=== PATIENT | female | born 1985 | race Caucasian/White ===

== ENCOUNTER 2023-11-24 16:14 | Outpatient (OUT) | payer BC, SELFPAY ==
[2023-11-24 16:32] LABS: Basophils Absolute Auto 0.1 10^3/uL (0.0-0.1); Basophils Percent Auto 0.5 % (0.2-2.0); Eosinophils Absolute Auto 0.1 10^3/uL (0.0-0.7); Eosinophils Percent Auto 0.8 % (0.9-7.0); Hematocrit 36.4 % (36.0-48.0); Hemoglobin 11.5 g/dL (12.0-16.0); Immature Granulocytes Abs Auto 0.03 10^3/uL (0.00-0.03); Immature Granulocytes Pct Auto 0.3 % (0.0-0.5); Lymphocytes Absolute Auto 2.2 10^3/uL (1.2-3.8); Lymphocytes Percent Auto 22.3 % (20.5-60.0); Mean Corpuscular HGB Conc 31.6 g/dL (29.9-35.2); Mean Corpuscular Hemoglobin 25.8 pg (26.7-34.0); Mean Corpuscular Volume 81.6 fL (81.0-99.0); Mean Platelet Volume 10.3 fL (9.5-13.5); Monocytes Absolute Auto 0.6 10^3/uL (0.3-0.8); Monocytes Percent Auto 5.8 % (1.7-12.0); Neutrophils Absolute Auto 6.8 10^3/uL (1.4-6.5); Neutrophils Percent Auto 70.3 % (43.0-75.0); Platelet Count 346 10^3/uL (150-450); Red Blood Count 4.46 10^6/uL (4.20-5.40); Red Cell Distribution Width 15.7 % (11.0-15.0); White Blood Count 9.7 10^3/uL (4.0-11.0)
[2023-11-24 16:48] LABS: Estimated Average Glucose 114 mg/dL; Glycohemoglobin A1C 5.6 % (4.5-6.2)
[2023-11-24 16:57] LABS: HCG Quantitative 435 mIU/mL; Thyroid Stimulating Hormone 5.311 uIU/mL (0.358-3.740)
[2023-11-24 17:18] LABS: Free T4 0.89 ng/dL (0.76-1.46)
[2023-11-26 12:08] LABS: FSH 2.2 mIU/mL (.); Luteinizing Hormone(LH) 1.9 mIU/mL (.)
[2023-11-28 18:07] LABS: DHEA, Serum 158 ng/dL (31-701)
== END 2023-11-24 16:15 | disposition home or self-care (01) ==
LOC: LAB 16:18
PROVIDERS: PCP Student in an Organized Health Care Education/Training Program; Visit Provider Obstetrics & Gynecology
DX: N92.6 Irregular menstruation, unspecified (principal); E28.2 Polycystic ovarian syndrome
CPT/HCPCS: 36415; 82626; 82627; 83001; 83002; 83036; 84439; 84443; 84702; 85025

== ENCOUNTER 2023-11-28 12:40 | Outpatient (OUT) | payer BC, SELFPAY ==
--- NOTE | 2023-11-28 12:46 | MM_ITS ---
Patient Name: FRANKIE GRIGGS MR#: [id number] : 1985 Exam Date: 11/28/2023 Ordering Doctor: DR Leo Oro . RADIOLOGY REPORT PROCEDURE: MM TOMOSYNTHESIS DIAGNOSTIC BI, 11/28/2023, 11:56 US BREAST BI LIMITED, 11/28/2023, 15:19 COMPARISON: None. INDICATIONS: breast lump on left side at 9 o'clock position N63.25 Calculator Name NCI Breast Cancer Risk Assessment Tool 5 Year Breast Cancer Risk 0.40% Lifetime Breast Cancer Risk 11.20% Personal Breast Cancer No Personal Ovarian Cancer No Treatments None Family Cancers None LOCATION: [facility] BREAST COMPOSITION: There are scattered areas of fibroglandular density. FINDINGS: DIAGNOSTIC CATEGORY 4--SUSPICIOUS FOR MALIGNANCY. FINDING DOES NOT EXHIBIT CLASSIC FINDINGS OF BREAST CANCER: Breasts are moderate in size. Multiple nodules are noted bilaterally many of which are reniform in shape and consistent with intramammary lymph nodes. RIGHT BREAST: No significant suspicious finding. Lobular circumscribed nodule 9 o'clock position of the right mid breast measuring 1.0 by 0.75 cm. Ultrasound demonstrates normal lymph nodes corresponding in size and location to the mammographic findings LEFT BREAST: A triangle marker demarcates a palpable mass. No mammographic abnormality. Ultrasound demonstrates an 8.1 x 4.3 x 7.5 mm oval slightly lobular hypoechogenic nodule. Ultrasound core biopsy is recommended for further evaluation. Additional lymph nodes are observed corresponding to the mammographic abnormality. RECOMMENDATIONS: ULTRASOUND-GUIDED CORE BIOPSY: LEFT BREAST 8.1 mm hypoechogenic nodule PLEASE NOTE: A NORMAL MAMMOGRAM DOES NOT EXCLUDE THE POSSIBILITY OF BREAST CANCER. A CLINICALLY SUSPICIOUS PALPABLE LUMP SHOULD BE BIOPSIED. Dictated by: Jef Goodwin MD on 11/28/2023 at 16:12 Approved by: Jef Goodwin MD on 11/28/2023 at 16:16
--- NOTE | 2023-11-28 12:49 | US_ITS ---
The [address] [address] Patient Name: FRANKIE GRIGGS MRN: [id number] date: 1985 Sex: F Assigned Patient Location: MAMMO Current Patient Location: MAMMO Accession/Order Number: [id number] Exam Date: 11/28/2023 14:00 Report Date: 11/28/2023 14:51 At the request of: ORTIZ MOSES Procedure: US OB transvaginal EXAMINATION: US OB transvaginal HISTORY: irregular periods N92.6, polycystic ovaries E28.2 COMPARISON: No relevant comparison available. FINDINGS: Transvaginal images The uterus is normal in size, contour and echotexture. Identified in the anterior myometrium is a 0.9 x 0.7 x 1.0 cm hypoechogenic lesion possibly a small fibroid. Endometrium measures 8 mm, normal The cervix is closed measuring 4.4 cm. The ovaries are not visualized No intrauterine or ectopic is observed US/US OB transvaginal IMPRESSION: No intrauterine or ectopic identified Electronically authenticated by: JAMISON CAMARENA Date: 11/28/2023 14:51
--- NOTE | 2023-11-28 15:17 | US_ITS ---
Patient Name: FRANKIE GRIGGS MR#: [id number] : 1985 Exam Date: 11/28/2023 Ordering Doctor: DR Leo Oro . RADIOLOGY REPORT PROCEDURE: MM TOMOSYNTHESIS DIAGNOSTIC BI, 11/28/2023, 11:56 US BREAST BI LIMITED, 11/28/2023, 15:19 COMPARISON: None. INDICATIONS: breast lump on left side at 9 o'clock position N63.25 Calculator Name NCI Breast Cancer Risk Assessment Tool 5 Year Breast Cancer Risk 0.40% Lifetime Breast Cancer Risk 11.20% Personal Breast Cancer No Personal Ovarian Cancer No Treatments None Family Cancers None LOCATION: The [facility] BREAST COMPOSITION: There are scattered areas of fibroglandular density. FINDINGS: DIAGNOSTIC CATEGORY 4--SUSPICIOUS FOR MALIGNANCY. FINDING DOES NOT EXHIBIT CLASSIC FINDINGS OF BREAST CANCER: Breasts are moderate in size. Multiple nodules are noted bilaterally many of which are reniform in shape and consistent with intramammary lymph nodes. RIGHT BREAST: No significant suspicious finding. Lobular circumscribed nodule 9 o'clock position of the right mid breast measuring 1.0 by 0.75 cm. Ultrasound demonstrates normal lymph nodes corresponding in size and location to the mammographic findings LEFT BREAST: A triangle marker demarcates a palpable mass. No mammographic abnormality. Ultrasound demonstrates an 8.1 x 4.3 x 7.5 mm oval slightly lobular hypoechogenic nodule. Ultrasound core biopsy is recommended for further evaluation. Additional lymph nodes are observed corresponding to the mammographic abnormality. RECOMMENDATIONS: ULTRASOUND-GUIDED CORE BIOPSY: LEFT BREAST 8.1 mm hypoechogenic nodule PLEASE NOTE: A NORMAL MAMMOGRAM DOES NOT EXCLUDE THE POSSIBILITY OF BREAST CANCER. A CLINICALLY SUSPICIOUS PALPABLE LUMP SHOULD BE BIOPSIED. Dictated by: Jef Goodwin MD on 11/28/2023 at 16:12 Approved by: Jef Goodwin MD on 11/28/2023 at 16:16
== END 2023-11-28 12:41 | disposition home or self-care (01) ==
LOC: MAMMO 12:40
PROVIDERS: PCP Student in an Organized Health Care Education/Training Program; Visit Provider Obstetrics & Gynecology
DX: N92.6 Irregular menstruation, unspecified (principal); N63.25 Unspecified lump in the left breast, overlapping quadrants; E28.2 Polycystic ovarian syndrome
CPT/HCPCS: 36415; 76642; 76817; 77066; 84702; G0279

== ENCOUNTER 2023-11-28 16:20 | Outpatient (OUT) | payer BC, SELFPAY ==
[2023-11-28 17:00] LABS: HCG Quantitative 312 mIU/mL
== END 2023-11-28 16:21 | disposition home or self-care (01) ==
LOC: LAB 16:22
PROVIDERS: PCP Student in an Organized Health Care Education/Training Program; Visit Provider Obstetrics & Gynecology
DX: N92.6 Irregular menstruation, unspecified (principal)
CPT/HCPCS: 36415; 84702

== ENCOUNTER 2023-12-11 13:14 | Day surgery (SDC) | payer BC, SELFPAY ==
--- NOTE | 2023-12-11 13:19 | MM_ITS ---
Patient Name: FRANKIE GRIGGS MR#: [id number] : 1985 Exam Date: 12/11/2023 Ordering Doctor: DR Leo Oro . This report includes an Addendum and supersedes previous reports for this exam. RADIOLOGY REPORT PROCEDURE: MM POST BIOPSY RT COMPARISON: US BREAST BI LIMITED, 11/28/2023. MM TOMOSYNTHESIS DIAGNOSTIC BI, 11/28/2023. INDICATIONS: Abnormal Mammogram BREAST COMPOSITION: There are scattered areas of fibroglandular density. FINDINGS: Post-Procedure Mammogram for Marker Placement BIOPSY MARKER: A metallic marker has been placed in the targeted location within the upper-outer quadrant of the right breast. BREAST FINDINGS: Expected post biopsy findings. RECOMMENDATIONS: Dictated by: Yaakov Madison M.D. on 12/11/2023 at 16:46 Approved by: Yaakov Madison M.D. on 12/11/2023 at 16:48 ADDENDUM: FINDINGS: DIAGNOSTIC CATEGORY 3--PROBABLY BENIGN FINDING. THE FOLLOWING FINDING(S) HAS A HIGH PROBABILITY OF A BENIGN ETIOLOGY: RECOMMENDATIONS: SHORT TERM FOLLOW-UP DIAGNOSTIC MAMMOGRAM RIGHT BREAST IN 6 MONTHS. Dictated by: Yaakov Madison M.D. on 12/18/2023 at 15:24 Approved by: Yaakov Madison M.D. on 12/18/2023 at 15:24
--- NOTE | 2023-12-11 13:20 | US_ITS ---
[address] [address] Patient Name: FRANKIE GRIGGS MRN: [id number] date: 1985 Sex: F Assigned Patient Location: US Current Patient Location: US Accession/Order Number: [id number] Exam Date: 12/11/2023 13:45 Report Date: 12/11/2023 16:50 At the request of: ORTIZ MOSES Procedure: US breast vac bx w/ clip RT EXAM: US breast vac bx w/ clip RT HISTORY: Abnormal Mammogram COMPARISON: Ultrasound breast bilateral 11/28/2023, mammography diagnostic bilateral 11/28/2023 TECHNIQUE: After obtaining informed consent, ultrasound-guided biopsy was performed in the usual sterile manner. The location of the biopsy was then marked as indicated below. FINDINGS: Specimen #, Location: 5 core samples, right breast upper outer quadrant, 9:00, 8 x 6 x 5 mm hypoechoic slightly nodular mass. Biopsy Needle: 13 gauge vacuum core biopsy needle. Marker(s): A single metallic marker was placed in the appropriate targeted location. Medication: Buffered 1% Lidocaine with epinephrine administered locally. Complications: None. Pathology: Pending. US/US breast vac bx w/ clip RT IMPRESSION: 1. Uneventful ultrasound-guided breast biopsy. 2. Pathology results are pending. An addendum to this report will be provided after pathology results are available. Electronically authenticated by: ALESSANDRA CARRANZA Date: 12/11/2023 16:50
[2023-12-11 13:25] VITALS: BP 180/106; PULSE 79; O2SAT 97
[2023-12-11] MEDS: LIDOCAINE HCL 10 ML, SODIUM BICARBONATE 1 MEQ INJ (15:00)
[2023-12-11] MEDS: LIDOCAINE HCL/EPINEPHRINE 10 ML, SODIUM BICARBONATE 1 MEQ INJ (15:00)
--- NOTE | 2023-12-11 16:33 | SUR.PREOP ---
12/05/23 Pt instructed on date, time, prep, and procedure.
== END 2023-12-11 15:30 | disposition home or self-care (01) ==
LOC: US 13:14
PROVIDERS: Radiology Diagnostic Radiology; PCP Student in an Organized Health Care Education/Training Program; Visit Provider Obstetrics & Gynecology
DX: R92.0 Mammographic microcalcification found on diagnostic imaging of breast (principal); D24.1 Benign neoplasm of right breast; N92.6 Irregular menstruation, unspecified
CPT/HCPCS: 19083; 36415; 77065; 84702; 88305; 88341; 88342

== ENCOUNTER 2023-12-11 15:36 | Outpatient (OUT) | payer BC, SELFPAY ==
--- OUTSIDE RECORDS SUMMARY | 2023-12-11 16:01 | XMS_ITS | CCD ---
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 Name Role Phone Demetrius [phone] UNKNOWN Unavailable Unavailable Oswald Kenzie Unavailable Unavailable Oswald Kenzie Unavailable Unavailable BEAU IRIZARRY Primary Care Unavailable MEREDITH MILLER Admitting Unavailable MEREDITH MILLER Attending Unavailable MEREDITH MILLER Consulting Unavailable TORRES CHOI Unavailable JUAN IRIZARRYNAH Primary Care Unavailable MEREDITH MILLER Admitting Unavailable MEREDITH MILLER Attending Unavailable DR JAMISON CAMARENA V Consulting Unavailable MEREDITH MILLER Consulting Unavailable ORTIZ MOSES Attending Unavailable NONE, XXXX Primary Care Physician Unavailab Ortiz Marc Attending Unavailable Ortiz MOSES Admitting Unavailable Tomer Portillo Attending Unavailable Medications Current Medications Medication Drug Class(es) Dates Sig (Normalized) Sig (Original) dicyclomine hydrochloride 10 mg oral capsule (1 source) Anticholinergic Start: 05-13-2023 take 1 capsule by mouth four times daily as needed Bentyl 10 mg Cap 10 mg = 1 cap(s), Oral, QID, PRN Other (see comment), For abdominal cramping, # 12 cap(s), Refills(s) 0, Pharmacy: [facility], 170, cm, 05/13/23 11:38:00 EDT, Height/Length Dosing, 152.9, kg, 05/13/23 11:38:00 EDT, Weight Dosing Start Date: 05/13/23 Status: Ordered docusate sodium 100 mg oral capsule (2 sources) Start: 07-14-2020 take 1 capsule by mouth twice daily as needed for constipation Colace 100 mg Cap 100 mg = 1 cap(s), Oral, BID, PRN for constipation, # 60 cap(s), Refills(s) 0 Start Date: 07/14/20 Status: Ordered Start: 07-14-2020 take 1 capsule by [facility] twice daily as needed for constipation Colace 50 mg oral capsule 50 mg = 1 cap(s), Oral, BID, PRN for constipation, # 60 cap(s), Refills(s) 0, 172.7, cm, 07/12/20 21:50:00 EST, Height/Length Dosing, 142, kg, 07/12/20 21:50:00 EST, Weight Dosing Start Date: 07/14/20 Status: Ordered oxyCODONE hydrochloride 5 mg oral capsule (1 source) Opioid Agonist Start: 07-14-2020 take 1 capsule by mouth every six hours as needed for pain oxyCODONE 5 mg Cap 5 mg = 1 cap(s), Oral, q6hr, PRN for pain, # 10 cap(s), Refills(s) 0 Start Date: 07/14/20 Status: Ordered Zofran ODT 4 mg Tab-Dis (1 source) Start: 05-13-2023 take 1 tablet by mouth every eight hours as needed for nausea Zofran ODT 4 mg Tab-Dis 4 mg = 1 tab(s), Oral, q8hr, PRN Nausea/Vomiting, # 12 tab(s), Refills(s) 0, Pharmacy: [facility] 1985, 170, cm, 05/13/23 11:38:00 EDT, Height/Length Dosing, 152.9, kg, 05/13/23 11:38:00 EDT, Weight Dosing Start Date: 05/13/23 Status: Ordered Problems Active Problems Problem Classification Problem Date Documented Da te Episodic/Chronic Abdominal pain (4 sources) Left lower quadrant pain; Translations: [LEFT LOWER QUADRANT PAIN] Onset: 05-23-2022 Episodic Essential hypertension (2 sources) Hypertensive disorder 07-07-2019 Chronic Other nutritional; endocrine; and metabolic disorders (1 source) Obesity, unspecified; Translations: [OBESITY UNSPECIFIED] Onset: 05-24-2022 Chronic Other nutritional; endocrine; and metabolic disorders (1 source) Body mass index (BMI) 50.0-59.9, adult; Translations: [BODY MASS INDEX BMI 50.0-59.9 ADULT] Onset: 05-24-2022 Chronic Spontaneous (1 source) Miscarriage 07-07-2017 Episodic Past or Other Problems Problem Classification Problem Date Documented Da te Episodic/Chronic E Codes: Natural/environment (1 source) Exposure to other specified factors, initial encounter; Translations: [EXPOSURE OTHER SPEC FACTORS INITIAL] Onset: 07-12-2021 Episodic Other non-traumatic joint disorders (3 sources) Pain in left ankle and joints of left foot; Translations: [PAIN IN LEFT ANKLE] Onset: 07-10-2021 Episodic Sprains and strains (1 source) Sprain of unspecified ligament of left ankle, initial encounter; Translations: [SPRAIN UNS LIGAMENT LT ANKLE INIT] Onset: 07-12-2021 Episodic Results Test Name Value Interpretation Reference Range Facility [facility] 11-26-2023 HCG.beta subunit Qn 622 m[IU]/mL High 1-3 [facility] Comment on above: Result Comment: 'F N ON < 1 - 3' ' 0.2 - 1 WEEK = 5 TO 50' ' 1 - 2 WEEKS = 50 - 500' ' 2 - 3 WEEKS = 100 - 5000' ' 3 - 4 WEEKS = 500 - 65279' ' 4 - 5 WEEKS = 1000 - 03160' ' 5 - 6 WEEKS = 87172 - 214489' ' 6 - 8 WEEKS = 96291 - 524527' ' 8 - 12 WEEKS = 15615 - 211155' Performed By: #### 2 162605, [id number], 3785010, 2074288, 7350741, 1612077 #### [facility] [address] [place] [address] CHEMISTRYOrdered By: SYSTEM SYSTEM on 11-26-2023 HCG.beta subunit Qn 622 m[IU]/mL High 1 - 3 mIU/mL R emisol Chem Comment on above: Result Comment: 'F N ON < 1 - 3' ' 0.2 - 1 WEEK = 5 TO 50' ' 1 - 2 WEEKS = 50 - 500' ' 2 - 3 WEEKS = 100 - 5000' ' 3 - 4 WEEKS = 500 - 17597' ' 4 - 5 WEEKS = 1000 - 47984' ' 5 - 6 WEEKS = 59169 - 287437' ' 6 - 8 WEEKS = 14086 - 512104' ' 8 - 12 WEEKS = 63381 - 755425' Consent for Treatmenton 11-03 Consent for Treatment [id number] F Normal [facility] Physician Orderon 11-26-2023 Physician Order [id number] F Normal [facility] Physician Order [id number] F Normal [facility] Auto Diffon 05-13-2023 Basophils/100 WBC (Bld) 0.6 % Normal 0.0-2.0 [facility] Comment on above: Order Comment: Order Added by Discern Expert. Performed By: #### 2 680289, 42055446, 4421513, 8855865, 2469524, 0943695 #### [facility] [address] [place] [address] Basophils/Leukocytes Auto (Bld) [Pure # fraction] 0.0 E9/L Normal 0.0-0.2 [facility] Comment on above: Order Comment: Order Added by Discern Expert. Performed By: #### 2 954540, 09847734, 0896376, 9430104, 1801300, 4435697 #### [facility] [address] [place] [address] Eosinophils/100 WBC (Bld) 3.9 % Normal 0.0-8.0 [facility] Comment on above: Order Comment: Order Added by Discern Expert. Performed By: #### 2 544212, 48603896, 7578596, 6221211, 0724590, 6317242 #### [facility] [address] [place] [address] Eosinophils/Leukocyt es Auto (Bld) [Pure # fraction] 0.3 E9/L Normal 0.0-0.5 [facility] Comment on above: Order Comment: Order Added by Discern Expert. Performed By: #### 2 019150, 17077205, 9987084, 5088224, 3654070, 6289136 #### [facility] [address] [place] [address] Lymphocytes/100 WBC (Bld) 32.4 % Normal 14.0-50.0 [facility] Comment on above: Order Comment: Order Added by Discern Expert. Performed By: #### 2 858380, 67044353, 7987613, 8276479, 9819050, 6162155 #### [facility] [address] [place] [address] Lymphocytes/Leukocyt es Auto (Bld) [Pure # fraction] 2.6 E9/L Normal 1.0-4.0 [facility] Comment on above: Order Comment: Order Added by Discern Expert. Performed By: #### 2 111968, 25555991, 7401704, 8086827, 3489855, 6739065 #### [facility] [address] [place] [address] Monocytes/100 WBC (Bld) 6.7 % Normal 4.0-14.0 [facility] Comment on above: Order Comment: Order Added by Discern Expert. Performed By: #### 2 541831, 90894819, 8914460, 4300981, 6801352, 4551178 #### [facility] [address] [place] [address] Monocytes/Leukocytes Auto (Bld) [Pure # fraction] 0.5 E9/L Normal 0.2-1.0 [facility] Comment on above: Order Comment: Order Added by Discern Expert. Performed By: #### 2 772261, 15245874, 4138681, 7030978, 3843054, 0074963 #### [facility] [address] [place] [address] Neutrophils/100 WBC (Bld) 56.4 % Normal 36.0-75.0 [facility] Comment on above: Order Comment: Order Added by Discern Expert. Performed By: #### 2 709234, 06099099, 6903112, 3998912, 9033693, 3155167 #### [facility] [address] [place] [address] Neutrophils/Leukocyt es Auto (Bld) [Pure # fraction] 4.6 E9/L Normal 2.0-7.5 [facility] Comment on above: Order Comment: Order Added by Discern Expert. Performed By: #### 2 820262, 85749699, 0648963, 7695349, 6776777, 0890331 #### [facility] [address] [place] [address] BMPon 05-13-2023 Creatinine [Mass/Vol] 0.8 mg/dL Normal 0.5-1.3 [facility] Comment on above: Performed By: #### 2 976675, 68744586, 2536094, 9991558, 2326995, 7781959 #### [facility] [address] [place] [address] Urea nitrogen [Mass/Vol] 8 mg/dL Normal 5-21 [facility] Comment on above: Performed By: #### 2 535393, 03852448, 9857337, 1479244, 7698233, 1779909 #### [facility] [address] [place] [address] Urea nitrogen/Creatinine [Mass ratio] 10 No Units Normal -20 [facility] Comment on above: Performed By: #### 2 950951, 17398341, 6339453, 8069940, 8841135, 2042046 #### [facility] [address] [place] [address] Anion gap [Moles/Vol] 11 mmol/L Normal 6-16 [facility] Comment on above: Performed By: #### 2 948282, 38069518, 8130330, 6283069, 9767001, 7667903 #### [facility] [address] [place] [address] Calcium [Mass/Vol] 9.2 mg/dL Normal 8.9-11.1 [facility] Comment on above: Performed By: #### 2 684074, 83342546, 8939173, 3845750, 7374451, 7697434 #### [facility] [address] [place] [address] Chloride [Moles/Vol] 104 mmol/L Normal 101-111 [facility] Comment on above: Performed By: #### 2 935578, 63310093, 1153109, 0635186, 8469785, 8354432 #### [facility] [address] [place] [address] CO2 [Moles/Vol] 24 mmol/L Normal 21-31 [facility] Comment on above: Performed By: #### 2 303530, 72493233, 0192491, 5299938, 6705982, 9214652 #### [facility] [address] [place] [address] Glucose [Mass/Vol] 104 mg/dL Normal 55-199 [facility] Comment on above: Result Comment: If t his glucose result represents a fasting glucose, interpretation should refer to the following reference range: 55-99 mg/dL Performed By: #### 2 495483, 53064663, 2344282, 1623640, 5354825, 0376890 #### [facility] [address] [place] [address] Potassium [Moles/Vol] 3.8 mmol/L Normal 3.5-5.3 [facility] Comment on above: Performed By: #### 2 696095, 14187332, 8964171, 2517071, 1734844, 8904648 #### [facility] [address] [place] [address] Sodium [Moles/Vol] 135 mmol/L Normal 135-145 [facility] Comment on above: Performed By: #### 2 657877, 50512463, 6954233, 3931719, 8715468, 8700551 #### [facility] [address] [place] [address] CBC w/ Auto Diffon 3 Erythrocyte distribution width (RBC) [Ratio] 17.4 % High 10.9-14.2 [facility] Comment on above: Performed By: #### 2 244635, 60508501, 5122812, 3760064, 1208187, 9688785 #### [facility] [address] [place] [address] Hematocrit (Bld) [Volume fraction] 38.2 % Normal 34.0-46.0 [facility] Comment on above: Performed By: #### 2 162833, 63454566, 1405123, 4045401, 7971204, 6945299 #### [facility] [address] [place] [address] Hemoglobin (Bld) [Mass/Vol] 12.4 g/dL Normal 12.0-16.0 [facility] Comment on above: Performed By: #### 2 980474, 49322422, 5923359, 5248098, 2874898, 1492387 #### [facility] [address] [place] [address] MCH (RBC) [Entitic mass] 26.2 pg Low 27.0-34.0 [facility] Comment on above: Performed By: #### 2 095786, 66381846, 2855495, 5688933, 6452595, 2940892 #### [facility] [address] [place] [address] MCHC (RBC) [Mass/Vol] 32.6 g/dL Normal 31.4-36.0 [facility] Comment on above: Performed By: #### 2 523076, 15676170, 0907912, 8136227, 0360398, 6374683 #### [facility] [address] [place] [address] 86864 MCV (RBC) [Entitic vol] 80.5 fL Normal 80.0-100.0 [facility] Comment on above: Performed By: #### 2 777523, 09144497, 8838442, 6866801, 1384223, 3725605 #### [facility] [address] [place] [address] Platelet mean volume (Bld) [Entitic vol] 8.2 fL Normal 6.4-10.8 [facility] Comment on above: Performed By: #### 2 784237, 65341306, 3762428, 4932092, 1078841, 6151976 #### [facility] [address] [place] [address] Platelets (Bld) [#/Vol] 353.0 E9/L Normal 150.0-500.0 [facility] Comment on above: Performed By: #### 2 953819, 11660027, 4626229, 5499791, 0515077, 7397283 #### [facility] [address] [place] [address] RBC (Bld) [#/Vol] 4.8 E12/L Normal 4.3-5.9 [facility] Comment on above: Performed By: #### 2 373900, 72105380, 4707134, 7334013, 1655076, 0892148 #### [facility] [address] [place] [address] WBC corrected for nucl RBC Auto (Bld) [#/Vol] 8.1 E9/L Normal 4.0-11.0 [facility] Comment on above: Performed By: #### 2 662907, 99651652, 6997067, 2124786, 4934140, 8009172 #### [facility] [address] [place] [address] CT Abdomen/Pelvis w/o Contra ston 05-13-2023 CT Abdomen/Pelvis w/o Contrast Exam Date/Time: 05/13/2023 13:45 EDT Reason for Exam: left flank/ llq pain;Other (please specify) Report IMPRESSION: NO ACUTE ABDOMINOPELVIC PROCESS. HEPATIC STEATOSIS. EXAM: CT Abdomen/Pelvis w/o Contrast History: Left flank pain. Left lower quadrant pain. Technique: Multiple contiguous axial images were obtained of the abdomen and pelvis from the level of the lung bases through the ischial tuberosities without contrast. Multiplanar reformats were obtained. Comparison: CT abdomen pelvis 07/13/2020 Findings: Lung bases are clear. Lack of intravenous contrast precludes optimal evaluation of the abdominal and pelvic viscera. Postsurgical changes of cholecystectomy. Hypoattenuation of the liver. The stomach, spleen, pancreas, and adrenal glands appear within normal limits. The unenhanced kidneys appear within normal limits. No urinary tract calculi or hydronephrosis. Urinary bladder is well distended. The uterus is present. Abdominal aorta is nonaneurysmal. No retroperitoneal or abdominal/pelvic lymphadenopathy. No small bowel obstruction. No overt colonic mass or pericolonic inflammation. Appendix is within normal limits. No free fluid or free air. No acute osseous abnormality. All CT scans at this facility use dose modulation, iterative reconstruction, and/or weight based dosing when appropriate to reduce radiation dose to as low as reasonably achievable. Report Ordering Provider: Tomer Portillo FINAL REPORT Dictated: 05/13/2023 1:56 pm Preston Jack DO Signed (Electronic Signature): 05/13/2023 1:56 pm Signed by: Preston Jack DO Transcribed by: MELINDA Technologist: LIDIA Technical Comments Rectal Contrast Given? No Oral contrast amount in ml's: 0 [facility] Consent for Treatmenton 05-04 Consent for Treatment [id number] F [facility] Discharge Instructionson Discharge Instructions [id number] FF [facility] ED Clinical Summaryon 2022 ED Clinical Summary (Inserted Image. Elissa ble to display) [place] [id number] ED Clinical Summary Person Information Name: FRANKIE GRIGGS [place] Age: 37 Years : 1985 Sex: Female Language: Greenlandic PCP: NONE, XXXX Marital Status: Phone: [phone] Visit Id: Visit Reason: Diarrhea; Vomiting; Abdominal pain; Flank pain; Urinary frequency; ABD/BACK PAIN, NAUSEA, FREQUENT URINATION, RASH ON FACE Speciality: Acuity: 3 Enc Type: Emergency Med Service: Emergency Arrival: 05/13/2023 11:30:59 Discharge: 05/13/2023 15:09:43 LOS: 000 03:39 Checkin: 05/13/2023 11:30:59 Checkout: 05/13/2023 15:09:43 Dispo Type: Home (Routine DC) EVENTS: Event Name Event Status Request Date/Time Start Date/Time Complete Date/Time Arrive Complete 05/13/2023 11:30:59 05/13/2023 11:30:59 05/13/2023 11:30:59 Document Home Meds Request 05/13/2023 11:30:59 Triage Complete 05/13/2023 11:30:59 05/13/2023 11:38:04 05/13/2023 11:38:04 Pending Labs Complete 05/13/2023 11:38:35 05/13/2023 13:02:58 Lab Complete 05/13/2023 11:38:35 05/13/2023 13:02:58 Urine Collect Complete 05/13/2023 11:38:35 05/13/2023 13:02:58 Pending Labs Complete 05/13/2023 11:53:51 05/13/2023 11:53:51 05/13/2023 12:28:18 Lab Complete 05/13/2023 11:53:51 05/13/2023 11:53:51 05/13/2023 12:28:18 Pending Labs Complete 05/13/2023 12:00:16 05/13/2023 12:00:16 05/13/2023 12:00:25 Lab Complete 05/13/2023 12:00:16 05/13/2023 12:00:16 05/13/2023 12:00:25 Pending Labs Complete 05/13/2023 12:15:18 05/13/2023 12:15:18 05/13/2023 12:15:18 Bed Assign Complete 05/13/2023 12:34:12 05/13/2023 12:34:12 05/13/2023 12:34:12 Dr Exam Complete 05/13/2023 12:34:12 05/13/2023 12:48:00 05/13/2023 12:48:00 RN Exam Complete 05/13/2023 12:34:12 05/13/2023 13:19:52 05/13/2023 13:19:52 Pending Labs Complete 05/13/2023 12:42:28 05/13/2023 13:15:04 Lab Complete 05/13/2023 12:42:28 05/13/2023 13:15:05 Urine Collect Complete 05/13/2023 12:42:28 05/13/2023 13:15:05 Registration Complete 05/13/2023 12:48:00 05/13/2023 13:05:30 05/13/2023 13:05:30 Reg Complete Request 05/13/2023 13:05:30 Reg Bed Request Complete 05/13/2023 13:05:31 05/13/2023 13:05:31 05/13/2023 13:05:31 Meds Admin Request 05/13/2023 13:18:15 CT Complete 05/13/2023 13:25:00 05/13/2023 13:33:41 05/13/2023 13:45:30 Discharge Complete 05/13/2023 14:43:24 05/13/2023 15:09:49 05/13/2023 15:09:49 Transfer Complete 05/13/2023 15:09:49 05/13/2023 15:09:49 05/13/2023 15:09:49 ADDRESS: [address] [place] [phone] [facility] DOC NOTES: MEDICAL INFORMATION: Prescriptions Given: New Medications [facility] 1985, [address] [facility] [place], [place] [id number], [phone] dicyclomine (Bentyl 10 mg Cap) 1 Capsules By Mouth 4 times a day as needed Other (see comment). For abdominal cramping. Refills: 0. ondansetron (Zofran ODT 4 mg Tab-Dis) 1 Tablets By Mouth every 8 hours as needed Nausea/Vomiting. Refills: 0. Medications to Continue with No Changes Other Medications docusate (Colace 100 mg Cap) 1 Capsules By Mouth 2 times a day as needed for constipation. Refills: 0. docusate (Colace 50 mg oral capsule) 1 Capsules By Mouth 2 times a day as needed for constipation. Refills: 0. oxycodone (oxyCODONE 5 mg Cap) 1 Capsules By Mouth every 6 hours as needed for pain. Refills: 0. PATIENT EDUCATION INFORMATION: Instructions: Migraine Headache; Nausea and Vomiting, Adult; Diarrhea, Adult Follow up: With: Address: When: Liza Valdivia [address], [address] [place] [address] Business (1) In 3 days 05/16/2023 Comments: Call the office of your primary care doctor to arrange for follow-up within the above-stated timeframe. Follow-up with your primary care doctor about this ED visit. You should review your labs, imaging, and diagnoses from this ED visit with your primary care physician. There are occasionally non-emergent findings that require additional follow-up after your ED visit. If you were prescribed medications you should discuss possible side-effects and drug interactions with your pharmacist. Call 911 or go to the nearest Emergency Department if you develop any new or worsening symptoms. Seek immediate medical attention if you develop: worsening abdominal pain, new or worsening nausea, new or worsening vomiting, new or worsening diarrhea, chest pain, shortness of breath, pain with urination, problems urinating, fever, chills, weakness, or any new or worsening symptoms. DIAGNOSIS: Diarrhea; Nausea and vomiting Normal [facility] ED Note-Physicianon 05-13-20 ED Note-Physician Basic Information Time Seen: Tomer Portillo DO 05/13/2023 12:48 Chief Complaint Patient states left kidney pain and urinary frequency x1 week. States vomiting and diarrhea yesterday. Left upper abd pain. History of Present Illness 37-year-old female to the emergency department chief complaint of left-sided flank/abdominal pain. She reports she has had urinary frequency for 1 week. She reports she has had vomiting and diarrhea that started yesterday. She denies any fever, sweats, chills. Otherwise at her baseline health. Denies . Review of Systems A 10 point review of systems is negative except as noted above. Medical and Surgical History: Reviewed and noted Social history: Lives at home Tobacco: Denies Physical Exam Vitals & Measurements T: 36.7 ?C(Oral) HR: 72(Monitored) RR: 16 BP: 190/112 SpO2: 98% HT: 170 cm WT: 152.9 kg BMI: 52.91 VITALS: I have reviewed the triage vital signs. GENERAL: Well developed, well appearing adult in no acute distress. NEURO: Alert and oriented. Moves all extremities. Face is symmetric and expressive. EYES: PERRL. No scleral icterus or conjunctival injection. No discharge. HENT: Normocephalic, atraumatic. Hearing is grossly intact. Nares grossly patent and without discharge. Mucous membranes moist. NECK: No JVD. Patient moves neck without restriction. CARDIO: Rhythm regular. Normal rate. No murmur, rub, or gallop. Pulses equal bilaterally in the upper and lower extremity. No lower extremity edema. PULM: Lungs clear to auscultation in all arguelles. No wheezes, rales, or rhonchi. No conversational dyspnea. No splinting, stridor, or accessory muscle use. GI/: Abdomen is soft and non-tender. Normoactive bowel sounds. EXTREMITIES: Symmetric muscle bulk. No joint swelling. No clubbing, cyanosis, or deformity. SKIN: Warm and dry. Normal turgor. No rash or lesions appreciated. PSYCH: Mood, affect, and interaction is appropriate to the setting. Medical Decision Making Well-appearing 37-year-old female with left flank pain rating to the left groin. Vital stable, the patient is afebrile. Abdominal examination is benign. Basic labs, urinalysis, hCG, CT scan ordered. Patient agrees with this plan. CBC & chemistry are unremarkable. Urinalysis without evidence of infection. CT scan is without acute findings. Discussed with the patient. We will treat with Bentyl and Zofran at home. Suspect this is more likely gastroenteritis in etiology than a kidney stone. Patient agrees with this plan. Return precautions were discussed. All questions were answered. The patient was discharged home. Assessment/Plan Diarrhea (R19.7: Diarrhea, unspecified) Nausea and vomiting (R11.2: Nausea with vomiting, unspecified) Orders: dicyclomine, 10 mg = 1 cap(s), Oral, QID, PRN Other (see comment), For abdominal cramping, # 12 cap(s), Refills(s) 0, Pharmacy: [facility] 1984, 170, cm, 05/13/23 11:38:00 EDT, Height/Length Dosing, 152.9, kg, 05/13/23 11:38:00 EDT, Weight Dosing diphenhydrAMINE, 25 mg = 0.5 mL, Injection, IV Push, Once, Stop date 05/13/23 13:17:00 EDT, STAT, Start date 05/13/23 13:17:00 EDT, 05/13/23 13:17:00 EDT ketorolac, 15 mg = 1 mL, Injection, IV Push, Once, Stop date 05/13/23 13:17:00 EDT, STAT, Start date 05/13/23 13:17:00 EDT, 05/13/23 13:17:00 EDT metoclopramide, 5 mg = 1 mL, Injection, IV Push, Once, Stop date 05/13/23 13:17:00 EDT, STAT, Start date 05/13/23 13:17:00 EDT, 05/13/23 13:17:00 EDT ondansetron, 4 mg = 1 tab(s), Oral, q8hr, PRN Nausea/Vomiting, # 12 tab(s), Refills(s) 0, Pharmacy: [facility], 170, cm, 05/13/23 11:38:00 EDT, Height/Length Dosing, 152.9, kg, 05/13/23 11:38:00 EDT, Weight Dosing Sodium Chloride 0.9% intravenous solution 1,000 mL, 1,000 mL, IV, 999 mL/hr, STAT, Start date 05/13/23 13:17:00 EDT, 1 hour(s), Total volume (mL): 1,000, 152.9 kg, 2.69, m2 Automated Diff Basic Metabolic Panel CBC w/ Auto Diff CT Abdomen/Pelvis w/o Contrast eGFR Extra Blue Tube Extra SST Tube Hepatic Function Panel Lipase Level U Beta Hcg Qual UA With Cult Reflex Medications Administered Given Sodium Chloride 0.9% IV Yasmin 1000 mL 1,000 mL, 1000 mL, IV diphenhydrAMINE 50 mg/mL Inj, 25 mg, IV Push ketorolac 15 mg/mL Inj, 15 mg, IV Push metoclopramide 5 mg/mL Inj, 5 mg, IV Push Disposition Plan Patient Discharge Condition Stable Discharge Disposition Home Discharge Prescription List Prescriptions Bentyl 10 mg Cap, 10 mg= 1 cap(s), Oral, QID, PRN Zofran ODT 4 mg Tab-Dis, 4 mg= 1 tab(s), Oral, q8hr, PRN Follow-up With When Contact Information Liza Valdivia In 3 days 05/16/2023 EDT [address] [place] [address]- Business (1) Additional Instructions: Call the office of your primary care doctor to arrange for follow-up within the above-stated timeframe. Follow-up with your primary care doctor about this ED visit. You should review your labs, imaging, and diagnoses from this ED visit with your primary care (more content not included)... Normal [facility] Comment on above: Result Comment: Elec tronically Signed By: Tomer Portillo DO\.br\Date and Time Signed: 05/13/23 17:45 EDT ED Patient Education Noteon 05-13-2023 ED Patient Education Note Gastroenterology Nausea and Vomiting, Adult Nausea is the feeling that you have an upset stomach or that you are about to vomit. As nausea gets worse, it can lead to vomiting. Vomiting is when stomach contents forcefully come out of your mouth as a result of nausea. Vomiting can make you feel weak and cause you to become dehydrated. Dehydration can make you feel tired and thirsty, cause you to have a dry mouth, and decrease how often you urinate. Older adults and people with other diseases or a weak disease-fighting system (immune system) are at higher risk for dehydration. It is important to treat your nausea and vomiting as told by your health care provider. Follow these instructions at home: Watch your symptoms for any changes. Tell your health care provider about them. Eating and drinking ? Take an oral rehydration solution (ORS). This is a drink that is sold at pharmacies and retail stores. ? Drink clear fluids slowly and in small amounts as you are able. Clear fluids include water, ice chips, low-calorie sports drinks, and fruit juice that has water added (diluted fruit juice). ? Eat bland, imkr-mt-fbizbw foods in small amounts as you are able. These foods include bananas, applesauce, rice, lean meats, toast, and crackers. ? Avoid fluids that contain a lot of sugar or caffeine, such as energy drinks, sports drinks, and soda. ? Avoid alcohol. ? Avoid spicy or fatty foods. General instructions ? Take alca-rng-nkpkikz and prescription medicines only as told by your health care provider. ? Drink enough fluid to keep your urine pale yellow. ? Wash your hands often using soap and water for at least 20 seconds. If soap and water are not available, use hand acetylene operator. ? Make sure that everyone in your household washes their hands well and often. ? Rest at home while you recover. ? Watch your condition for any changes. ? Take slow and deep breaths when you feel nauseous. ? Keep all follow-up visits. This is important. Contact a health care provider if: ? Your symptoms get worse. ? You have new symptoms. ? You have a fever. ? You cannot drink fluids without vomiting. ? Your nausea does not go away after 2 days. ? You feel light-headed or dizzy. ? You have a headache. ? You have muscle cramps. ? You have a rash. ? You have pain while urinating. Get help right away if: ? You have pain in your chest, neck, arm, or jaw. ? You feel extremely weak or you faint. ? You have persistent vomiting. ? You have vomit that is bright red or looks like black coffee grounds. ? You have bloody or black stools (feces) or stools that look like tar. ? You have a severe headache, a stiff neck, or both. ? You have severe pain, cramping, or bloating in your abdomen. ? You have difficulty breathing, or you are breathing very quickly. ? Your heart is beating very quickly. ? Your skin feels cold and clammy. ? You feel confused. ? You have signs of dehydration, such as: ? Dark urine, very little urine, or no urine. ? Cracked lips. ? Dry mouth. ? Sunken eyes. ? Sleepiness. ? Weakness. These symptoms may be an emergency. Get help right away. Call 911. ? Do not wait to see if the symptoms will go away. ? Do not drive yourself to the hospital. Summary ? Nausea is the feeling that you have an upset stomach or that you are about to vomit. As nausea gets worse, it can lead to vomiting. Vomiting can make you feel weak and cause you to become dehydrated. ? Follow instructions from your health care provider about eating and drinking to prevent dehydration. ? Take hjio-rtc-cqptkiu and prescription medicines only as told by your health care provider. ? Contact your health care provider if your symptoms get worse, or you have new symptoms. ? Keep all follow-up visits. This is important. This information is not intended to replace advice given to you by your health care provider. Make sure you discuss any questions you have with your health care provider. Document Revised: 01/25/2022 Document Reviewed: 01/25/2022 [employer] Patient Education ? 2022 [email or web address]. Infectious Disease Diarrhea, Adult Diarrhea is frequent loose and watery bowel movements. Diarrhea can make you feel weak and cause you to become dehydrated. Dehydration can make you tired and thirsty, cause you to have a dry mouth, and decrease how often you urinate. Diarrhea typically lasts 2?3 days. However, it can last longer if it is a sign of something more serious. It is important to treat your diarrhea as told by your health care provider. Follow these instructions at home: Eating and drinking Follow these recommendations as told by your health care provider: ? Take an oral rehydration solution (ORS). This is an jtou-qfv-glmqtqb medicine that helps return your body to its normal balance of nutrients and (more content not included)... Normal [facility] ED Patient Summaryon 023 ED Patient Summary (Inserted Image. Elissa ble to display) [place] [id number] Patient Discharge Instructions Person Information Name: FRANKIE GRIGGS Age: 37 Years Arrival Date: 05/13/2023 11:30:59 Discharge Diagnosis: Diarrhea; Nausea and vomiting Primary Care Physician: NONE, XXXX Provider Information Primary Provider: Tomer Portillo DO Advanced Industrial Psychologist:None The exam and treatment you received in the Emergency Department were for an urgent problem and are not intended as complete care. It is important that you follow up with a doctor, nurse practitioner, or physician?s assistant business manager for ongoing care. If your symptoms become worse or you do not improve as expected and you are unable to reach your usual health care provider, you should return to the Emergency Department. We are available 24 hours a day. FRANKIE GRIGGS has been given the following list of patient education materials, prescriptions and follow-up instructions: Follow-up Instructions: With: Address: When: Liza Valdivia [address] [place] [address] Business (1) In 3 days 05/16/2023 Comments: Call the office of your primary care doctor to arrange for follow-up within the above-stated timeframe. Follow-up with your primary care doctor about this ED visit. You should review your labs, imaging, and diagnoses from this ED visit with your primary care physician. There are occasionally non-emergent findings that require additional follow-up after your ED visit. If you were prescribed medications you should discuss possible side-effects and drug interactions with your pharmacist. Call 911 or go to the nearest Emergency Department if you develop any new or worsening symptoms. Seek immediate medical attention if you develop: worsening abdominal pain, new or worsening nausea, new or worsening vomiting, new or worsening diarrhea, chest pain, shortness of breath, pain with urination, problems urinating, fever, chills, weakness, or any new or worsening symptoms. In the event that this physician does not participate in your insurance network, please consult with your insurance company to find a nearby participating provider. Patient Education Materials: Migraine Headache; Nausea and Vomiting, Adult; Diarrhea, Adult A MESSAGE TO ALL PATIENTS REGARDING OPIOIDS PRESCRIPTION OPIOIDS: WHAT YOU NEED TO KNOW Prescription opioids can be used to help relieve jyoyklpa-hn-mggfxm pain and are often prescribed following a surgery or injury, or for certain health conditions. These medications can be an important part of the treatment but also come with serious risks. It is important to work with your healthcare provider to make sure you are getting the safest, most effective care. WHAT ARE THE RISKS AND SIDE EFFECTS OF OPIOID USE? Prescription opioids carry serious risks of addiction and overdose, especially with prolonged use. An opioid overdose, often marked by slowed breathing, can cause sudden . The use of prescription opioids can have a number of side effects as well, even when taken as directed: ? Tolerance?meaning you might need to take more of the medication for the same pain relief ? Physical dependence?meaning you have symptoms of withdrawal when a medication is stopped ? Increased sensitivity to pain ? Constipation ? Nausea, vomiting, and dry mouth ? Sleepiness and dizziness ? Confusion ? Depression ? Low levels of testosterone that can result in lower sex drive, energy, and strength ? Itching and sweating RISKS ARE GREATER WITH: ? History of drug misuse, substance use disorder, or overdose ? Mental health conditions (such as depression or anxiety) ? Sleep apnea ? Older age (65 years and older) ? Avoid alcohol while taking prescription opioids. Also, unless specifically advised by your health care provider, medications to avoid include: ? Benzodiazepines (such as Xanax or Valium) ? Muscle relaxants (such as Soma or Flexeril) ? Hypnotics (such as Ambien or Lunesta) ? Other prescription opioids KNOW YOUR OPTIONS Talk to your health care provider about ways to manage your pain that don?t involve prescription opioids. Some of these options may actually work better and have fewer risks and side effects. Options may include: ? Pain relievers such as acetaminophen, ibuprofen, and naproxen ? Some medication that are also used for depression or seizures ? Physical therapy and exercise ? Cognitive behavioral therapy, a psychological, goal-directed approach, in which patients learn how to modify physical, behavioral, and emotional triggers of pain and stress. IF YOU ARE PRESCRIBED OPIOIDS FOR PAIN: ? Never take opioids in greater amounts or more often than prescribed. ? Follow up with your primary health care provider. o Work together to create a plan on how to manage your pain. o Talk abo (more content not included)... Normal [facility] Hep Func Panelon 05-13-2023 Albumin [Mass/Vol] 3.8 g/dL Normal 3.3-5.0 [facility] Comment on above: Performed By: #### 2 [id number], [id number], 6925745, 2131200, 9872376, 5672744 #### [facility] [address] [place] [address] Albumin/Globulin (S) [Mass conc ratio] 1.1 Normal 1.1-2.2 [facility] Comment on above: Performed By: #### 2 [id number], [id number], 7155089, 2601838, 8253975, 3701308 #### [facility] [address] [place] [address] ALP [Catalytic activity/Vol] 77 Int._Unit/L Normal 21-98 [facility] Comment on above: Performed By: #### 2 300723, [id number], 8424157, 2992570, 0393228, 7859066 #### [facility] [address] [place] [address] ALT No additional P-5'-P [Catalytic activity/Vol] 26 Int._Unit/L Normal 6-46 [facility] Comment on above: Performed By: #### 2 093015, [id number], 1684559, 1954003, 9891847, 8379266 #### [facility] [address] [place] [address] AST [Catalytic activity/Vol] 25 Int._Unit/L Normal 5-43 [facility] Comment on above: Performed By: #### 2 598615, [id number], 8548134, 9035287, 8376028, 9515013 #### [facility] [address] [place] [address] Bilirubin [Mass/Vol] 0.4 mg/dL Normal 0.0-1.1 [facility] Comment on above: Performed By: #### 2 725022, 73184381, 1503398, 4170193, 3287691, 0500964 #### [facility] [address] [place] [address] Bilirubin.direct [Mass/Vol] 0.1 mg/dL Normal 0.1-0.4 [facility] Comment on above: Performed By: #### 2 179525, 71258803, 0744845, 6727071, 4157860, 9367812 #### [facility] [address] [place] [address] Bilirubin.indirect [Mass or moles/Vol] 0.3 mg/dL Normal 0.1-0.9 [facility] Comment on above: Performed By: #### 2 127386, 48718276, 3423750, 7752947, 4823707, 5849453 #### [facility] [address] [place] [address] Globulin (S) [Mass/Vol] 3.6 g/dL Normal 1.4-4.0 [facility] Comment on above: Performed By: #### 2 587413, 61669584, 1862765, 6732887, 2759726, 3223111 #### [facility] [address] [place] [address] Protein [Mass/Vol] 7.4 g/dL Normal 6.0-7.8 [facility] Comment on above: Performed By: #### 2 895522, 44650011, 2916445, 2053707, 1089625, 4934518 #### [facility] [address] [place] [address] Lipase Levelon 05-13-2023 Lipase [Catalytic activity/Vol] 24 U/L Normal 13-58 [facility] Comment on above: Performed By: #### 2 368012, 23856036, 7632403, 7260065, 2574489, 8887019 #### [facility] [address] [place] [address] U BetaHcg Qualon 05-13-2023 HCG.beta subunit (U) [Moles/Vol] Negative Normal [facility] Comment on above: Performed By: #### 2 306247, 27417328, 3710390, 0842872, 0164652, 6538756 #### [facility] [address] [place] [address] UA With Cult Reflexon 2022 Bacteria LM Ql (Urine sed) TRACE Normal Trace [facility] Comment on above: Performed By: #### 1 [id number] #### [facility] [address] [place] [address] Bilirubin Ql (U) Negative Normal Negative [facility] Comment on above: Performed By: #### 1 1753350 #### [facility] [address] [place] [address] Clarity (U) CLEAR Normal Clear [facility] Comment on above: Performed By: #### 1 2828621 #### [facility] [address] [place] [address] Color (U) YELLOW Normal Yellow [facility] Comment on above: Performed By: #### 1 3883170 #### [facility] [address] [place] [address] Epithelial cells.squamous LM.HPF (Urine sed) [#/Area] 0-2 Normal 0-2 [facility] Comment on above: Performed By: #### 1 7287920 #### [facility] [address] [place] [address] Glucose Test strip (U) [Mass/Vol] Negative Normal Negative [facility] Comment on above: Performed By: #### 1 [id number] #### [facility] [address] [place] [address] Hemoglobin Ql (U) Negative Normal Negative [facility] Comment on above: Performed By: #### 1 7495768 #### [facility] [address] [place] [address] Ketones (U) [Mass/Vol] Negative Normal Negative [facility] Comment on above: Performed By: #### 1 5270208 #### [facility] [address] [place] [address] [place].plasma/Lithi um.RBC (Bld) [Mass ratio] 0-3 Normal 0-3 [facility] Comment on above: Performed By: #### 1 [id number] #### [facility] [address] [place] [address] Mucus Ql (Urine sed) TRACE Normal [facility] Comment on above: Performed By: #### 1 [id number] #### [facility] [address] [place] [address] Nitrite Ql (U) Negative Normal Negative [facility] Comment on above: Performed By: #### 1 6034035 #### [facility] [address] [place] [address] pH (U) 7.5 [pH] Invalid Interpretation Code 5.0-9.0 [facility] Comment on above: Performed By: #### 1 3578824 #### [facility] [address] [place] [address] Protein (U) [Mass/Vol] Negative Normal Negative [facility] Comment on above: Performed By: #### 1 7292281 #### [facility] [address] [place] [address] Specific gravity (U) [Rel density] 1.015 Invalid Interpretation Code 1.005-1.030 [facility] Comment on above: Performed By: #### 1 5748135 #### [facility] [address] [place] [address] Type of Urine collection method Clean Catch Normal [facility] Comment on above: Performed By: #### 1 [id number] #### [facility] [address] [place] [address] Urobilinogen Qn (U) 0.2 {Laquita'U}/dL Normal 0.0-1.0 [facility] Comment on above: Performed By: #### 1 [id number] #### [facility] [address] [place] [address] WBC Auto Ql (U) Negative Normal Negative [facility] Comment on above: Performed By: #### 1 [id number] #### [facility] [address] [place] [address] WBC LM.HPF (Urine sed) [#/Area] 0-5 Normal 0-5 [facility] Comment on above: Performed By: #### 1 [id number] #### [facility] [address] [place] [address] eGFRon 05-13-2023 GFR/1.73 sq M.predicted among non-blacks MDRD (S/P/Bld) [Vol rate/Area] 98 mL/min/1.73 m2 Normal >=59 [facility] Comment on above: Order Comment: Order added by Discern Expert. Result Comment: Documentation Writer eugenio kidney disease could be indicated at eGFR's of less than 60 mL/min/1.73m2. Kidney failure is indicated at less than 15 mL/min/1.73m2. Performed By: #### 2 682569, 30008763, 9236223, 0070657, 0930889, 9368326 #### [facility] [address] [place] [address] CBC AUTO DIFFon 05-23-2022 BASO # 0.0 103/ul Normal 0.0-0.1 [facility] Comment on above: Performed By: #### C BC #### [facility] [address] [place] [address] Dr. Rebeca Kaplan Basophils/100 WBC (Bld) 0.6 % Normal 0.2-2.0 [facility] Comment on above: Performed By: #### C BC #### [facility] [address] [place] [address] Dr. Rebeca Kaplan EO # 0.1 103/ul Normal 0.0-0.7 [facility] Comment on above: Performed By: #### C BC #### [facility] [address] [place] [address] Dr. Rebeca Kaplan Eosinophils/100 WBC (Bld) 0.8 % Critically low 0.9-7.0 [facility] Comment on above: Performed By: #### C BC #### [facility] [address] [place] [address] Dr. Rebeca Kaplan Erythrocyte distribution width (RBC) [Ratio] 15.9 % Critically high 11.0-15.0 [facility] Comment on above: Performed By: #### C BC #### [facility] [address] [place] [address] Dr. Rebeca Kaplan Hematocrit (Bld) [Volume fraction] 38.1 % Normal 36.0-48.0 [facility] Comment on above: Performed By: #### C BC #### [facility] [address] [place] [address] Dr. Rebeca Kaplan Hemoglobin (Bld) [Mass/Vol] 11.9 g/dL Critically low 12.0-16.0 [facility] Comment on above: Performed By: #### C BC #### [facility] [address] [place] [address] Dr. eRbeca Kaplan IG # 0.02 10e3/ul Normal 0.00-0.03 [facility] Comment on above: Performed By: #### C BC #### [facility] [address] [place] [address] Dr. Rebeca Kaplan IG % 0.3 % Normal 0.0-0.5 [facility] Comment on above: Performed By: #### C BC #### [facility] [address] [place] [address] Dr. Rebeca Kaplan LYMPH # 2.4 103/ul Normal 1.2-3.8 [facility] Comment on above: Performed By: #### C BC #### [facility] [address] [place] [address] Dr. Rebeca Kaplan Lymphocytes/100 WBC (Bld) 33.2 % Normal 20.5-60.0 [facility] Comment on above: Performed By: #### C BC #### [facility] [address] [place] [address] Dr. Rebeca Kaplan MANUAL DIFF REQ NO Normal [facility] Comment on above: Performed By: #### C BC #### [facility] [address] [place] [address] Dr. Rebeca Kaplan MCH (RBC) [Entitic mass] 26.3 pg Critically low 26.7-34.0 [facility] Comment on above: Performed By: #### C BC #### [facility] [address] [place] [address] Dr. Rebeca Kaplan MCHC (RBC) [Mass/Vol] 31.2 g/dL Normal 29.9-35.2 [facility] Comment on above: Performed By: #### C BC #### [facility] [address] [place] [address] Dr. Rebeca Kaplan MCV (RBC) [Entitic vol] 84.3 fL Normal 81.0-99.0 [facility] Comment on above: Performed By: #### C BC #### [facility] [address] [place] [address] Dr. Rebeca Kaplan MONO # 0.4 103/ul Normal 0.3-0.8 [facility] Comment on above: Performed By: #### C BC #### [facility] [address] [place] [address] Dr. Rebeca Kaplan Monocytes/100 WBC (Bld) 5.4 % Normal 1.7-12.0 [facility] Comment on above: Performed By: #### C BC #### [facility] [address] [place] [address] Dr. Rebeca Kaplan NEUT # 4.3 103/ul Normal 1.4-6.5 [facility] Comment on above: Performed By: #### C BC #### [facility] [address] [place] [address] Dr. Rebeca Kaplan Neutrophils/100 WBC (Bld) 59.7 % Normal 43.0-75.0 [facility] Comment on above: Performed By: #### C BC #### [facility] [address] [place] [address] Dr. Rebeca Kaplan Platelet mean volume (Bld) [Entitic vol] 10.0 fL Normal 9.5-13.5 [facility] Comment on above: Performed By: #### C BC #### [facility] [address] [place] [address] Dr. Rebeca Kaplan PLT 356 103/ul Normal 150-450 [facility] Comment on above: Performed By: #### C BC #### [facility] [address] [place] [address] Dr. Rebeca Kaplan RBC 4.52 106/ul Normal 4.20-5.40 [facility] Comment on above: Performed By: #### C BC #### [facility] [address] [place] [address] Dr. Rebeca Kaplan WBC 7.2 103/ul Normal 4.0-11.0 [facility] Comment on above: Performed By: #### C BC #### [facility] [address] [place] [address] Dr. Rebeca Kaplan ER URINE PROFILEon 2 Bilirubin Ql (U) Negative Normal NEGATIVE [facility] Comment on above: Performed By: #### U MICRO, ERUR #### [facility] [address] [address] [address] Rebeca Kaplan Clarity (U) CLEAR Normal CLEAR [facility] Comment on above: Performed By: #### U MICRO, ERUR #### [facility] [address] [address] [address] Rebeca Kaplan Color (U) LT. YELLOW Normal YELLOW [facility] Comment on above: Performed By: #### U MICRO, ERUR #### [facility] [address] [address] [address] Rebeca Kaplan ERUAHD A micrscopic examina tion will be performed if indicated. Normal [facility] Comment on above: Performed By: #### U MICRO, ERUR #### [facility] [address] [place] [address] Dr. Rebeca Kaplan Glucose Ql (U) Negative Normal NEGATIVE [facility] Comment on above: Performed By: #### U MICRO, ERUR #### [facility] [address] [address] [address] Rebeca Kaplan Hemoglobin Ql (U) SMALL Abnormal NEGATIVE [facility] Comment on above: Performed By: #### U MICRO, ERUR #### [facility] [address] [place] [address] Dr. Rebeca Kaplan Ketones Ql (U) Negative Normal NEGATIVE [facility] Comment on above: Performed By: #### U MICRO, ERUR #### [facility] [address] [address] [address] Rebeca Kaplan LEUKOCYTES TRACE Abnormal NEGATIVE [facility] Comment on above: Performed By: #### U MICRO, ERUR #### [facility] [address] [address] [address] Rebeca Kaplan Nitrite Ql (U) Negative Normal NEGATIVE [facility] Comment on above: Performed By: #### U MICRO, ERUR #### [facility] [address] [place] [address] Dr. Rebeca Kaplan pH (U) 6.0 [pH] Normal 5-9 [facility] Comment on above: Performed By: #### U MICRO, ERUR #### [facility] [address] [address] [address] Rebeca Kaplan SPEC GRAVITY 1.010 Normal 1.005-<=1.02 5 [facility] Comment on above: Performed By: #### U MICRO, ERUR #### [facility] [address] [address] [address] Rebeca Kaplan UA PROTEIN Negative Normal NEGATIVE/ TRACE [facility] Comment on above: Performed By: #### U MICRO, ERUR #### [facility] [address] [address] [address] Rebeca Kaplan UR MICRO IND INDICATED Normal [facility] Comment on above: Performed By: #### U MICRO, ERUR #### [facility] [address] [place] [address] Dr. Rebeca Kaplan Urobilinogen Qn (U) 0.2 {Laquita'U}/dL Normal 0.2 - 1. 0 [facility] Comment on above: Performed By: #### U MICRO, ERUR #### [facility] [address] [address] [address] Rebeca Kaplan PREG HCG QUALon 05-23-2022 , QUAL Negative Normal NEGATIVE [facility] Comment on above: Performed By: #### P REG #### [facility] [address] [place] [address] Dr. Rebeca Kaplan PROF CHEM 8 (BAS METB)on Anion gap [Moles/Vol] 14.2 mmol/L Normal [facility] Comment on above: Performed By: #### B MP #### [facility] [address] [place] [address] Dr. Rebeca Kaplan Calcium [Mass/Vol] 9.0 mg/dL Normal 8.5-10.1 [facility] Comment on above: Performed By: #### B MP #### [facility] [address] [address] [address] Rebeca Kaplan Chloride [Moles/Vol] 103 mmol/L Normal 98-107 [facility] Comment on above: Performed By: #### B MP #### [facility] [address] [address] [address] Rebeca Kaplan CO2 [Moles/Vol] 26.5 mmol/L Normal 21.0-32.0 [facility] Comment on above: Performed By: #### B MP #### [facility] [address] [address] [address] Rebeca Kaplan Creatinine [Mass/Vol] 0.78 mg/dL Normal 0.55-1.02 [facility] Comment on above: Performed By: #### B MP #### [facility] [address] [address] [address] Rebeca Kaplan EGFR-AF TOGOLESE >60 Normal >=60 [facility] Comment on above: Performed By: #### B MP #### [facility] [address] [address] [address] Rebeca Kaplan EGFR-NON AF TOGOLESE >60 Normal >=60 [facility] Comment on above: Performed By: #### B MP #### [facility] [address] [address] [address] Rebeca Kaplan Glucose [Mass/Vol] 112 mg/dL Critically high 74-106 [facility] Comment on above: Performed By: #### B MP #### [facility] [address] [address] [address] Rebeca Kaplan Potassium [Moles/Vol] 3.7 mmol/L Normal 3.5-5.1 [facility] Comment on above: Performed By: #### B MP #### [facility] [address] [address] [address] Rebeca Kaplan Sodium [Moles/Vol] 140 mmol/L Normal 136-145 [facility] Comment on above: Performed By: #### B MP #### [facility] [address] [address] [address] Rebeca Kaplan Urea nitrogen [Mass/Vol] 11.0 mg/dL Normal 7.0-18.0 [facility] Comment on above: Performed By: #### B MP #### [facility] [address] [place] [address] Dr. Rebeca Kaplan Urea nitrogen/Creatinine [Mass ratio] 14.1 mg/mg Normal [facility] Comment on above: Performed By: #### B MP #### [facility] [address] [place] [address] Dr. Rebeca Kaplan URINE MICROSCOPIC ONLYon BACTERIA TRACE Abnormal NONE SEEN [facility] Comment on above: Performed By: #### U MICRO, ERUR #### [facility] [address] [place] [address] Dr. Rebeca Kaplan Bacteria identified Cx Nom (U) NOT INDICATED Normal [facility] Comment on above: Performed By: #### U MICRO, ERUR #### [facility] [address] [place] [address] Dr. Rebeca Kaplan CAST NONE SEEN Normal NONE SEEN [facility] Comment on above: Performed By: #### U MICRO, ERUR #### [facility] [address] [place] [address] Dr. Rebeca Kaplan Crystals LM Nom (Urine sed) NONE SEEN Normal NONE SEEN [facility] Comment on above: Performed By: #### U MICRO, ERUR #### [facility] [address] [place] [address] Dr. Rebeca Kaplan Epithelial cells LM Ql (Urine sed) FEW Abnormal NONE SEEN /RARE [facility] Comment on above: Performed By: #### U MICRO, ERUR #### [facility] [address] [place] [address] Dr. Rebeca Kaplan MUCOUS NONE SEEN Normal NONE SEEN [facility] Comment on above: Performed By: #### U MICRO, ERUR #### [facility] [address] [place] [address] Dr. Rebeca Kaplan RBC 0-2 Normal 0-2 [facility] Comment on above: Performed By: #### U MICRO, ERUR #### [facility] [address] [place] [address] Dr. Rebeca Kaplan WBC 0-2 Abnormal NONE SEEN [facility] Comment on above: Performed By: #### U MICRO, ERUR #### [facility] [address] [address] [address] Rebeca Kaplan US PELVIS AND TRANSVAGon US PELVIS AND TRANSVAG EXAM: Transabdominal and transvaginal pelvic ultrasound. INDICATION: Pain COMPARISON: 10/03/2020 FINDINGS: The uterine body measures 8.2 x 5 x 4.8 cm. Presumed 1 cm uterine fundal fibroid. The endometrial stripe measures 7 mm. The right ovary measures 2.4 x 1.7 x 1.5 cm and demonstrates normal sonographic appearance and Doppler flow. The left ovary is not visualized. No free pelvic fluid identified. IMPRESSION: 1 cm uterine fibroid. Normal-appearing right ovary. Nonvisualization of the left ovary. Electronically authenticated by: TORRES CHOI Date: 2022-05-23 11:13 Normal [facility] C Cervicalon 07-04-2018 Protein mass conc MicrobiologyPROCEDUR E: Cervical Culture [R1] Cerv BODY SITE:COLLECTED DATE/TIME: 07/02/2018 14:46 EST RECEIVED DATE/TIME: 07/02/2018 15:46 ESTSTART DATE/TIME: 07/02/2018 15:46 EST FREE TEXT SOURCE:Kenzie Akers DO, DO, ErinFINAL REPORTSFinal Report [] Verified Date/Time: 07/04/2018 09:15 ESTScant growth of Normal vaginal arun isolatedSTAINSWet Prep Report [] Verified Date/Time: 07/03/2018 10:14 ESTNo clue cells present No Trichomonas vaginalis presentPerforming LocationsR1: This test was performed at: [facility], [address] [place] [address], [address] , Normal [facility] Comment on above: Performed By: #### 1 [id number], [id number], 2274142, 8863278, 1859788, 9215352 ####[facility] [address] [place] [address] Coding Summary.on 07-03-2018 Coding Summary. CODING DATE: 018 FINAL [facility] DSC STATUS: Home (Routine DC) PAYOR: Self Pay APC DESCRIPTION 5522 Level 2 Imaging without Contrast 5024 Level 4 Type A ED Visits ADMIT DX: REASON FOR VISIT DX: O20.9 Hemorrhage in early , unspecified R10.2 Pelvic and perineal pain FINAL DX: PRINCIPAL: O03.9 Complete or unspecified spontaneous without complication SECONDARY: PYMT PROC APC STAT DESCRIPTION DOCTOR NAME DATE NOTE: The code number assigned matches the documented diagnosis and / or procedure in the patient's chart. However, the narrative phrase printed from the coding software may appear abbreviated, or result in slightly different terminology. Revised Coded By: Gail Mills Revised Date Saved: 07/03/2018 03:48 pm Normal [facility] Auto Diffon 07-02-2018 Basophils Auto #/vol (Bld) 0.9 % Normal 0.0-2.0 [facility] Comment on above: Order Comment: Order Added by Discern Expert. Performed By: #### 1 [id number], 8546215, 2697320, 7581580, 6595264, 2803042 ####[facility] [address] [place] [address] Basophils/Leukocytes Auto Pure number fraction (Bld) 0.1 E9/L Normal 0.0-0.2 [facility] Comment on above: Order Comment: Order Added by Discern Expert. Performed By: #### 1 [id number], 6707488, 9794377, 0587019, 6936635, 7106831 ####[address] [place] [address] Eosinophils/100 WBC Auto (Bld) 2.4 % Normal 0.0-8.0 [facility] Comment on above: Order Comment: Order Added by Discern Expert. Performed By: #### 1 2338554, 9810598, 0322306, 1200534, 9558635, 9750713 ####[facility] [address] [place] [address] Eosinophils/Leukocyt es Auto Pure number fraction (Bld) 0.2 E9/L Normal 0.0-0.5 [facility] Comment on above: Order Comment: Order Added by Discern Expert. Performed By: #### 1 9733039, 7136068, 1599738, 4178093, 1289401, 7448907 ####[address] [address] Lymphocytes/100 WBC Auto (Bld) 32.0 % Normal 14.0-50.0 [facility] Comment on above: Order Comment: Order Added by Discern Expert. Performed By: #### 1 7889929, 2565650, 4311314, 5602301, 1073461, 6078938 ####[address] [address] Lymphocytes/Leukocyt es Auto Pure number fraction (Bld) 2.6 E9/L Normal 1.0-4.0 [facility] Comment on above: Order Comment: Order Added by Discern Expert. Performed By: #### 1 3029154, 2253686, 2388642, 2919231, 5650742, 6468922 ####[address] [address] Monocytes/100 WBC Auto (Bld) 6.5 % Normal 4.0-14.0 [facility] Comment on above: Order Comment: Order Added by Marianela Expert. Performed By: #### 1 1527224, 0418019, 2275203, 1584198, 3915162, 5046575 ####[address] [address] Monocytes/Leukocytes Auto Pure number fraction (Bld) 0.5 E9/L Normal 0.2-1.0 [facility] Comment on above: Order Comment: Order Added by Discern Expert. Performed By: #### 1 9545962, 3597933, 1601630, 0225868, 0744539, 8574760 ####[address] [address] Neutrophils/100 WBC Auto (Bld) 58.2 % Normal 36.0-75.0 [facility] Comment on above: Order Comment: Order Added by Marianela Expert. Performed By: #### 1 5187311, 4902194, 1761599, 8650035, 5181994, 6040927 ####[address] [place] [address] Neutrophils/Leukocyt es Auto Pure number fraction (Bld) 4.7 E9/L Normal 2.0-7.5 [facility] Comment on above: Order Comment: Order Added by Discern Expert. Performed By: #### 1 1890329, 5163665, 1990005, 6514035, 0857169, 7988431 ####[facility] [address] [place] [address] BMPon 07-02-2018 Creatinine mass conc 0.7 mg/dL Normal 0.5-1.3 [facility] Comment on above: Performed By: #### 1 7124878, 1710921, 7166355, 1263711, 2480388, 1897696 ####[facility] [address] [place] [address] Urea nitrogen mass conc 16 mg/dL Normal 5-21 [facility] Comment on above: Performed By: #### 1 9376553, 9553504, 1552389, 0411340, 7878077, 5878036 ####[facility] [address] [place] [address] Urea nitrogen/Creatinine mass ratio 23 No Units High 10-20 [facility] Comment on above: Performed By: #### 1 4590078, 7479452, 1457438, 1455112, 9534903, 0286820 ####[facility] [address] [place] [address] Anion gap 3 molar conc 10 mmol/L Normal 6-16 [facility] Comment on above: Performed By: #### 1 4536413, 5328593, 2670303, 4941619, 0323278, 9640365 ####[facility] [address] [place] [address] Calcium mass conc 8.9 mg/dL Normal 8.9-11.1 [facility] Comment on above: Performed By: #### 1 8154213, 2669199, 8286352, 4712861, 7905940, 6793690 ####[facility] [address] [place] [address] Chloride molar conc 106 mmol/L Normal 101-111 [facility] Comment on above: Performed By: #### 1 6779195, 8342457, 0273169, 9440833, 3341706, 6495931 ####[facility] [address] [place] [address] CO2 molar conc 24 mmol/L Normal 21-31 [facility] Comment on above: Performed By: #### 1 2167181, 7469263, 0129549, 3601619, 1559447, 1775241 ####[facility] [address] [place] [address] Glucose mass conc 97 mg/dL Normal 55-199 [facility] Comment on above: Result Comment: If t his glucose result represents a fasting glucose, interpretation should refer to the following reference range: 55-99 mg/dL Performed By: #### 1 4899027, 5152600, 3551666, 4396305, 9405495, 3365779 ####[facility] [address] [place] [address] Potassium molar conc 3.5 mmol/L Normal 3.5-5.3 [facility] Comment on above: Performed By: #### 1 8053653, 6558500, 9735842, 7930633, 5455382, 4856217 ####[facility] [address] [place] [address] Sodium molar conc 136 mmol/L Normal 135-145 [facility] Comment on above: Performed By: #### 1 7270382, 4467327, 0894157, 3029806, 5301543, 9139806 ####[facility] [address] [place] [address] [facility] Quanton 07-02-2018 HCG.beta subunit Qn m[IU]/mL Normal 1-3 [facility] Comment on above: Result Comment: GEST ATIONAL AGE HCG RANGE (mIU/mL) NON- <1-3 0.2-1 WEEKS 5-50 1-2 WEEKS 50-500 2-3 WEEKS 100-5,000 3-4 WEEKS 500-10,000 4-5 WEEKS 1,000-50,000 5-6 WEEKS 10,000-100,000 6-8 WEEKS 15,000-200,000 8-12 WEEKS 10,000-100,000 Performed By: #### 2 818365 ####[place] [address] CBC w/ Auto Diffon Erythrocyte distribution width Auto Ratio (RBC) 15.6 % High 10.9-14.2 [facility] Comment on above: Performed By: #### 1 [id number], 4365115, 2387857, 1414634, 8405630, 5963581 ####[address] [place] [address] Hematocrit Auto Volume Fraction (Bld) 37.7 % Normal 34.0-46.0 [facility] Comment on above: Performed By: #### 1 7694897, 2458835, 8083147, 0837242, 4057911, 1093415 ####[address] Hemoglobin mass conc (Bld) 12.5 g/dL Normal 12.0-16.0 [facility] Comment on above: Performed By: #### 1 7712629, 5400028, 7691656, 6079331, 3915400, 0510522 ####[address] [address] MCH Auto Entitic mass (RBC) 26.9 pg Low 27.0-34.0 [facility] Comment on above: Performed By: #### 1 2414728, 6353055, 6842636, 0730428, 6093567, 0280381 ####[address] [place] [address] MCHC Auto mass conc (RBC) 33.1 g/dL Normal 31.4-39.3 [facility] Comment on above: Performed By: #### 1 4926548, 1851413, 6568905, 3128773, 6560990, 3267751 ####[address] [place] [address] MCV Auto Entitic volume (RBC) 81.4 fL Normal 80.0-100.0 [facility] Comment on above: Performed By: #### 1 8926642, 3313390, 7182504, 2098429, 4447226, 3224869 ####[address] [address] Platelet mean volume Auto Entitic volume (Bld) 8.6 fL Normal 6.4-10.8 [facility] Comment on above: Performed By: #### 1 7094753, 3371265, 9540127, 0437071, 6543408, 5174884 ####[address] [address] Platelets Auto #/vol (Bld) 348.0 E9/L Normal 150.0-500.0 [facility] Comment on above: Performed By: #### 1 5310886, 4287224, 8286733, 5204864, 4588191, 6142913 ####[address] [address] RBC Auto #/vol (Bld) 4.6 E12/L Normal 4.3-5.9 [facility] Comment on above: Performed By: #### 1 5312099, 8096616, 7168950, 7670060, 0263559, 5220185 ####[address] WBC corrected for nucl RBC Auto #/vol (Bld) 8.0 E9/L Normal 4.0-11.0 [facility] Comment on above: Performed By: #### 1 5246463, 6454496, 3235475, 2554473, 6193224, 3827116 ####[address] [address] Discharge Instructionson Discharge Instructions Discharge insturctions compelte, RR equal and non labored with no distress noted. Nurse educated to make appt with Dr. Ellsworth and return with any worsneing symptoms. pt verbalized understanding. Normal [facility] Comment on above: Result Comment: Elec tronically Signed By: Shivani VALADEZ, Figueroa Burr\.kayleen\Date and Time Signed: 07/02/18 16:13 EST ED Clinical Summaryon 2017 ED Clinical Summary (Inserted Image. Elissa ble to display) [address] [address] ED Clinical SummaryPerson Information Name: FRANKIE GRIGGS/Candis Age: 32 Years : 1985 12:00 AM Sex: Female Language:Greenlandic PCP: Demetrius KU DO Marital Status: MRN: Visit Id: Visit Reason:Vaginal bleeding - < 20 wks ; ABD PAIN/ BLEEDING-6 WEEKS Speciality: Acuity: 3 Enc Type: Emergency Med Service: Emergency Arrival:07/02/2018 2:01 PM Discharge: 07/02/2018 4:13 PM LOS: 000 02:12 Checkin:07/02/2018 2:01 PM Checkout: 07/02/2018 4:13 PM Dispo Type: Home (Routine DC) EVENTS:Event Name Event Status Request Date/Time Start Date/Time Complete Date/Time Arrive Complete 07/02/2018 2:01 PM 07/02/2018 2:01 PM 07/02/2018 2:01 PM Document Home Meds Request 07/02/2018 2:01 PM Triage Complete 07/02/2018 2:01 PM 07/02/2018 2:12 PM 07/02/2018 2:[address] Exam Complete 07/02/2018 2:05 PM 07/02/2018 2:05 PM 07/02/2018 2:05 PM Registration Complete 07/02/2018 2:05 PM 07/02/2018 2:05 PM 07/02/2018 2:18 PM Bed Assign Complete 07/02/2018 2:05 PM 07/02/2018 2:05 PM 07/02/2018 2:05 PM RN Exam Complete 07/02/2018 2:05 PM 07/02/2018 2:42 PM 07/02/2018 2:42 PM Pending Labs Complete 07/02/2018 2:07 PM 07/02/2018 3:41 PM Lab Complete 07/02/2018 2:07 PM 07/02/2018 3:41 PM Urine Collect Complete 07/02/2018 2:07 PM 07/02/2018 2:58 PM US Complete 07/02/2018 2:16 PM 07/02/2018 2:47 PM 07/02/2018 3:40 PM Patient Care Complete 07/02/2018 2:16 PM 07/02/2018 2:36 PM Pending Labs Inlab 07/02/2018 2:16 PM Lab Inlab 07/02/2018 2:16 PM Reg Complete Request 07/02/2018 2:18 PM Reg Bed Request Complete 07/02/2018 2:18 PM 07/02/2018 2:18 PM 07/02/2018 2:18 PM Pending Labs Complete 07/02/2018 2:45 PM 07/02/2018 2:45 PM 07/02/2018 3:41 PM Lab Complete 07/02/2018 2:45 PM 07/02/2018 2:45 PM 07/02/2018 3:41 PM Pending Labs Complete 07/02/2018 2:52 PM 07/02/2018 2:52 PM 07/02/2018 2:52 PM Lab Complete 07/02/2018 2:52 PM 07/02/2018 2:52 PM 07/02/2018 2:52 PM US Complete 07/02/2018 3:53 PM 07/02/2018 3:54 PM Meds Admin Request 07/02/2018 4:00 PM Discharge Complete 07/02/2018 4:04 PM 07/02/2018 4:14 PM 07/02/2018 4:14 PM Transfer Complete 07/02/2018 4:14 PM 07/02/2018 4:14 PM 07/02/2018 4:14 PM ADDRESS:[address] [place] [phone] PHYS DOC NOTES: MEDICAL INFORMATION: Prescriptions Given:Prescription Display acetaminophen-hydrocodon e ([place] 325 mg-5 mg oral tablet) 1 tab(s), Oral, q6hr, 8 tab(s), Refill(s) 0, [facility] 1984 ondansetron (Zofran ODT 4 mg Tab-Dis) 4 mg = 1 tab(s), Oral, q6hr, PRN Nausea, # 4 tab(s), Refills(s) 0, Pharmacy: [facility] 1985 PATIENT EDUCATION INFORMATION: Instructions:Miscarriage Follow up:With: Address: When: [address]ta[address] MEJIAMARKUS POSEY, [facility] [address], [place] [address] Business (1) Within 2 to 3 days Comments: Return to ED if symptoms worsen DIAGNOSIS:1:Miscarriage; 2:Vaginal bleeding Normal [facility] ED Note-Physicianon 07-02-20 ED Note-Physician Basic Information Ti me Seen: Oswald Kenzie 07/02/2018 14:05Chief Complaint Yest morning bleeding with cramping, clotting. and pain to right side. Llight headed, dizzy, nauseated. Wants to rule out an ectopic.History of Present Illness Pt 32 yo female presents with pelvic pain and vaginal bleeding. Onset was yesterday, passing small to moderate amounts of red blood. Has lower abdominal pelvic cramping, Right > Left side. No nausea or vomiting. No diarrhea. No problems urinating. Feels a little dizzy with no syncope. No headache, neck pain, chest pain, SOB, fevers, chills or sweats. Estimates that she is around 6 weeks . This is her fourth with three previous miscarriages. Expresses concerns for an ectopic today. Denies any concerns for STD. Blood type is O+.Review of Systems All organ systems are reviewed. Pertinent positive and negative findings as mentioned in the HPI.Physical Exam Vitals & Measurements T: 37 ?C (Oral) HR: 91(Peripheral) RR: 16 BP: 159/89 SpO2: 98% HT: 173 cm WT: 140 kg BMI: 46.78 General: alert, no acute distress, here with Spouse Skin: warm, dry, intact, no rashes Head: atraumatic, normocephalic Neck: full ROM, no tenderness to palpation Eye: vision grossly intact, clear conjunctiva ENT: moist mucous membranes, nares clear, voice normal Cardiovascular: regular rate and rhythm, no murmur Respiratory: Lungs CTA, no wheezes/rales/rhonchi, non-labored Chest wall: no tenderness with palpation Gastrointestinal: soft, mild right sided pelvic pain with palpation, obese, normal bowel sounds, no guarding/rebound tenderness/rigidity : Nurse Matri present during exam, scant blood in the vaginal vault, cervix appears closed Back: full ROM, no tenderness with palpation Extremities: no deformity, full ROM, normal strength, ambulatory Neurological: alert and oriented, normal speechMedical Decision Making 1551: ED tests discussed with Pt. Pt recent positive test over the weekend, now with Quant HCG <1 and US with no evidence of IUP or ectopic . Pt with likely miscarriage. Recommend follow up with [employer] [facility]. Blood type is O+. Pt with three previous miscarriages and aware of things that she would need to return to the ED for. All questions answered.Assessment/Plan 1. Miscarriage Ordered: acetaminophen-hydrocodon e, 1 tab(s), Oral, q6hr, 8 tab(s), Refill(s) 0, [facility] 2. Vaginal bleeding Ordered: acetaminophen-hydrocodon e, 1 tab(s), Oral, q6hr, 8 tab(s), Refill(s) 0, [facility] Orders: acetaminophen-hydrocodon e, 1 tab(s), Tab, Oral, q4hr PRN Pain for 5 day(s), Stop date 07/07/18 15:59:00 EST, STAT, Start date 07/02/18 16:00:00 EST ondansetron, 4 mg = 1 tab(s), Oral, q6hr, PRN Nausea, # 4 tab(s), Refills(s) 0, Pharmacy: [facility] 1985 Automated Diff Basic Metabolic Panel Beta hCG Quantitative CBC w/ Auto Diff Cervical Culture eGFR Hepatic Function Panel Lipase Level Pelvic Exam Setup UA With Cult Reflex US 1st Trimester US TransvaginalMedications Administered Given [place] 5/325 Tab, 1 tab(s), OralDisposition Plan Patient Discharge Condition Stable Discharge Disposition Home Discharge Prescription List Prescriptions [place] 325 mg-5 mg oral tablet, 1 tab(s), Oral, q6hr Zofran ODT 4 mg Tab-Dis, 4 mg= 1 tab(s), Oral, q6hr, PRN Follow-up With When Contact Information Baltazar Ellsworth Within 2 to 3 days [address], [address] [place] [address]- Business (1) Additional Instructions: Return to ED if symptoms worsen Patient Education MiscarriageProblem List/Past Medical History Ongoing No qualifying data Historical MiscarriageMedications Inpatient [place] 5/325 Tab, 1 tab(s), Oral, q4hr, PRN Home [place] 325 mg-5 mg oral tablet, 1 tab(s), Oral, q6hr Zofran ODT 4 mg Tab-Dis, 4 mg= 1 tab(s), Oral, q6hr, PRNAllergies No Known AllergiesSocial History Alcohol - Denies Alcohol Use, 09/21/2016 Substance Abuse Current, Marijuana, 1-2 times per month, 09/21/2016 Tobacco - Denies Tobacco Use, 09/21/2016Lab Results WBC: 8 E9/L (07/02/18 14:38:00 EST) RBC: 4.6 E12/L (07/02/18 14:38:00 EST) Hgb: 12.5 gm/dL (07/02/18 14:38:00 EST) Hct: 37.7 % (07/02/18 14:38:00 EST) MCV: 81.4 fL (07/02/18 14:38:00 EST) MCH: 26.9 pg Low (07/02/18 14:38:00 EST) MCHC: 33.1 gm/dL (07/02/18 14:38:00 EST) RDW: 15.6 % High (07/02/18 14:38:00 EST) Platelet: 348 E9/L (07/02/18 14:38:00 EST) MPV: 8.6 fL (07/02/18 14:38:00 EST) Neutro Auto: 58.2 % (07/02/18 14:38:00 EST) Lymph Auto: 32 % (07/02/18 14:38:00 EST) [place] Auto: 6.5 % (07/02/18 14:38:00 EST) Eos Auto: 2.4 % (07/02/18 14:38:00 EST) Basophil Auto: 0.9 % (07/02/18 14:38:00 EST) Neutro Absolute: 4.7 E9/L (07/02/18 14:38:00 EST) Lymph Absolute: 2.6 E9/L (07/02/18 14:38:00 EST) [place] Absolute: 0.5 E9/L (07/02/18 14:38:00 EST) Eos Absolute: 0.2 E9/L (07/02/18 14:38:00 EST) Basophil Absolute: 0.1 E9/L (07/02/18 14:38:00 EST) Glucose Lvl: 97 mg/dL (07/02/18 14:38:00 EST) BUN: 16 mg/dL (07/02/18 14:38:00 EST) Creatinine: 0.7 mg/dL (07/02/18 14:38:00 EST) eGFR: >60 (07/02/18 14:38:00 EST) eGFR AA: >60 (07/02/18 14:38:00 EST) BUN/Creat Ratio: 23 High (07/02/18 14:38:00 EST) Sodium Lvl: 136 mmol/L (07/02/18 14:38:00 EST) Potassium Lvl: 3.5 mmol/L (07/02/18 14:38:00 EST) Chloride: 106 mmol/L (07/02/18 14:38:00 EST) CO2: 24 mmol/L (07/02/18 14:38:00 EST) AGAP: 10 mEq/L (07/02/18 14:38:00 EST) Calcium Lvl: 8.9 mg/dL (07/02/18 14:38:00 EST) Alk Phos: 69 Int._Unit/L (07/02/18 14:38:00 EST) ALT: 12 Int._Unit/L (07/02/18 14:38:00 EST) AST: 15 Int._Unit/L (07/02/18 14:38:00 EST) Total Protein: 6.9 gm/dL (07/02/18 14:38:00 EST) Albumin Lvl: 3.7 gm/dL (07/02/18 14:38:00 EST) Globulin: 3.2 gm/dL (07/02/18 14:38:00 EST) A/G Ratio: 1.2 (07/02/18 14:38:00 EST) Bili Total: 0.2 mg/dL (07/02/18 14:38:00 EST) Bili Direct: <0.1 (07/02/18 14:38:00 EST) Bili Indirect: Unable to Calculate Abnormal (07/02/18 14:38:00 EST) Lipase Lvl: 22 unit/L (07/02/18 14:38:00 EST) Beta hCG Qnt: <1 (07/02/18 14:38:00 EST) UA Spec Desc: Random Urine (07/02/18 14:45:00 EST) UA Color: Yellow2 (07/02/18 14:45:00 EST) UA Clarity: Slightly Cloudy3 Abnormal (07/02/18 14:45:00 EST) UA Spec Grav: 1.025 (07/02/18 14:45:00 EST) UA pH: 6.0 (07/02/18 14:45:00 EST) UA Protein: NEGATIVE1 (07/02/18 14:45:00 EST) UA Glucose: NEGATIVE1 (07/02/18 14:45:00 EST) UA Ketones: NEGATIVE1 (07/02/18 14:45:00 EST) UA Bili: NEGATIVE1 (07/02/18 14:45:00 EST) UA Blood: 3+ Abnormal (07/02/18 14:45:00 EST) UA Nitrite: NEGATIVE1 (07/02/18 14:45:00 EST) UA Urobilinogen: 0.2 (07/02/18 14:45:00 EST) UA Leuk Est: NEGATIVE1 (07/02/18 14:45:00 EST) UA RBC: >30 Abnormal (07/02/18 14:45:00 EST) UA Squam Epithelial: 3-4 (07/02/18 14:45:00 EST) UA WBC: 0-5 (07/02/18 14:45:00 EST) UA Bacteria: Trace2 (07/02/18 14:45:00 EST) UA Mucous: 2+ (07/02/18 14:45:00 EST) UA Yeast: Trace2 (07/02/18 14:45:00 EST)Diagnostic Results US 1st Trimester 07/02/18 15:55:44 IMPRESSION: NO EVIDENCE OF INTRAUTERINE OR ECTOPIC AT THIS TIME. PATIENT MAY HAVE HAD AN . PATIENT MAY ALSO HAVE A VERY EARLY . RECOMMEND CORRELATION WITH SERIAL BETA HCG LEVELS. CONSIDER FOLLOW-UP SONOGRAM. NO FREE FLUID OR ABNORMAL ADNEXAL MASS. CLINICAL HISTORY: Vaginal bleeding started yesterday. Increasing vaginal bleeding. LMP: 05/19/2018. By LMP estimated gestational age is 6 weeks 2 days. 4 para 3. COMPARISONS: NONE FINDINGS: Transabdominal/transvagi nal ultrasonography of the uterus was performed. No evidence of intrauterine or ectopic gestational sac . Uterus has a volume of 11 5 mL. Uterus measures 9.5 x 5.6 x 4.2 cm. Endometrium measures 0.8 cm in AP diameter. The cervix is closed and elongated. There are nabothian cysts in the cervix. The maternal right ovary has a volume of 5.8 mL. The maternal left ovary has a volume of 2.1 mL. Color Vascular flow is seen in right ovary. No free fluid is visualized. No sign of subchorionic hemorrhage. There is no abnormal adnexal mass. Signed By: Melony Barnes MD Transvaginal 07/02/18 15:59:34 Please refer to transabdominal pelvic sonogram report. Signed By: Melony Barnes MD [facility] Comment on above: Result Comment: Elec tronically Signed By: Knezie Akers DO\.br\Date and Time Signed: 07/02/18 16:09 EST ED Patient Education Noteon 07-02-2018 ED Patient Education [facility] is the sudden loss of an unborn baby (fetus) before the 20th week of . Most miscarriages happen in the first 3 months of . Sometimes, it happens before a woman even knows she is . A miscarriage is also called a spontaneous miscarriage or early loss. Having a miscarriage can be an emotional experience. Talk with your caregiver about any questions you may have about miscarrying, the grieving process, and your future plans.CAUSES? Problems with the chromosomes that make it impossible for the baby to develop normally. Problems with the baby's genes or chromosomes are most often the result of errors that occur, by chance, as the embryo divides and grows. The problems are not inherited from the parents.? Infection of the cervix or uterus. ? Hormone problems. ? Problems with the cervix, such as having an incompetent cervix. This is when the tissue in the cervix is not strong enough to hold the . ? Problems with the uterus, such as an abnormally shaped uterus, uterine fibroids, or congenital abnormalities. ? Certain medical conditions. ? Smoking, drinking alcohol, or taking illegal drugs. ? Trauma. Often, the cause of a miscarriage is unknown. SYMPTOMS? Vaginal bleeding or spotting, with or without cramps or pain.? Pain or cramping in the abdomen or lower back.? Passing fluid, tissue, or blood clots from the vagina. DIAGNOSISYour caregiver will perform a physical exam. You may also have an ultrasound to confirm the miscarriage. Blood or urine tests may also be ordered.TREATMENT? Sometimes, treatment is not necessary if you naturally pass all the tissue that was in the uterus. If some of the fetus or placenta remains in the body (incomplete miscarriage), tissue left behind may become infected and must be removed. Usually, a dilation and curettage (D and C) procedure is performed. During a D and C procedure, the cervix is widened (dilated) and any remaining or placental tissue is gently removed from the uterus. ? Antibiotic medicines are prescribed if there is an infection. Other medicines may be given to reduce the size of the uterus (contract) if there is a lot of bleeding. ? If you have Rh negative blood and your baby was Rh positive, you will need a Rh immunoglobulin shot. This shot will protect any future baby from having Rh blood problems in future pregnancies. HOME CARE INSTRUCTIONS? Your caregiver may order bed rest or may allow you to continue light activity. Resume activity as directed by your caregiver. ? Have someone help with home and family responsibilities during this time. ? Keep track of the number of sanitary pads you use each day and how soaked (saturated) they are. Write down this information. ? Do not use tampons. Do not douche or have sexual intercourse until approved by your caregiver. ? Only take ymdq-tzh-xainobr or prescription medicines for pain or discomfort as directed by your caregiver. ? Do not take aspirin. Aspirin can cause bleeding. ? Keep all follow-up appointments with your caregiver. ? If you or your partner have problems with grieving, talk to your caregiver or seek counseling to help cope with the loss. Allow enough time to grieve before trying to get again. SEEK IMMEDIATE MEDICAL CARE IF:? You have severe cramps or pain in your back or abdomen.? You have a fever.? You pass large blood clots (walnut-sized or larger) or tissue from your vagina. Save any tissue for your caregiver to inspect. ? Your bleeding increases. ? You have a thick, bad-smelling vaginal discharge.? You become lightheaded, weak, or you faint. ? You have chills. MAKE SURE YOU:? Understand these instructions.? Will watch your condition.? Will get help right away if you are not doing well or get worse.Document Released: 01/14/2002 Document Revised: 11/15/2013 Document Reviewed: 09/08/2012ExitCare? Patient Information ?2015 [employer]. This information is not intended to replace advice given to you by your health care provider. Make sure you discuss any questions you have with your health care provider.Return if you have any problems or concerns. Call your regular Pilot Plant Operator Helper or the one provided for a follow up appointment. Normal [facility] ED Patient Summaryon 018 ED Patient Summary (Inserted Image. Elissa ble to display) [address] [address] Patient Discharge Instructions Person Information Name: FRANKIE GRIGGS Age: 32 Years Date: 07/02/2018 2:01 PMDischarge Diagnosis: 1:Miscarriage; 2:Vaginal bleeding Primary Care Physician: Demetrius KU DO Provider InformationPrimary Provider: Rebecca Akers DO Industrial Psychologist:None The exam and treatment you received in the Emergency Department were for an urgent problem and are not intended as complete care. It is important that you follow up with a doctor, nurse practitioner, or physician?s assistant business manager for ongoing care. If your symptoms become worse or you do not improve as expected and you are unable to reach your usual health care provider, you should return to the Emergency Department. We are available 24 hours a day. FRANKIE GRIGGS has been given the following list of patient education materials, prescriptions and follow-up instructions: Follow-up Instructions:With: Address: When: Baltazar Ellsworth [address] [place] [address], [place] [id number] Business (1) Within 2 to 3 days Comments: Return to ED if symptoms worsen In the event that this physician does not participate in your insurance network, please consult with your insurance company to find a nearby participating provider. Patient Education Materials:Miscarriage A MESSAGE TO ALL PATIENTS REGARDING OPIOIDS PRESCRIPTION OPIOIDS: WHAT YOU NEED TO KNOW Prescription opioids can be used to help relieve zkkywpkq-at-orlxsk pain and are often prescribed following a surgery or injury, or for certain health conditions. These medications can be an important part of the treatment but also come with serious risks. It is important to work with your healthcare provider to make sure you are getting the safest, most effective care. WHAT ARE THE RISKS AND SIDE EFFECTS OF OPIOID USE?Prescription opioids carry serious risks of addiction and overdose, especially with prolonged use. An opioid overdose, often marked by slowed breathing, can cause sudden . The use of prescription opioids can have a number of side effects as well, even when taken as directed:? Tolerance?meaning you might need to take more of the medication for the same pain relief? Physical dependence?meaning you have symptoms of withdrawal when a medication is stopped? Increased sensitivity to pain ? Constipation? Nausea, vomiting, and dry mouth? Sleepiness and dizziness? Confusion? Depression? Low levels of testosterone that can result in lower sex drive, energy, and strength? Itching and sweating RISKS ARE GREATER WITH:? History of drug misuse, substance use disorder, or overdose? Mental health conditions (such as depression or anxiety)? Sleep apnea? Older age (65 years and older)? Avoid alcohol while taking prescription opioids. Also, unless specifically advised by your health care provider, medications to avoid include:? Benzodiazepines (such as Xanax or Valium)? Muscle relaxants (such as Soma or Flexeril)? Hypnotics (such as Ambien or Lunesta)? Other prescription opioids KNOW YOUR OPTIONSTalk to your health care provider about ways to manage your pain that don?t involve prescription opioids. Some of these options may actually work better and have fewer risks and side effects. Options may include:? Pain relievers such as acetaminophen, ibuprofen, and naproxen? Some medication that are also used for depression or seizures? Physical therapy and exercise? Cognitive behavioral therapy, a psychological, goal-directed approach, in which patients learn how to modify physical, behavioral, and emotional triggers of pain and stress. IF YOU ARE PRESCRIBED OPIOIDS FOR PAIN:? Never take opioids in greater amounts or more often than prescribed.? Follow up with your primary health care provider.o Work together to create a plan on how to manage your pain.o Talk about ways to help manage your pain that don?t involve prescription opioids.o Talk about any and all concerns and side effects.? Help prevent misuse and abuseo Never sell or share prescription opioids.o Never use another person?s prescription opioids.? Store prescription opioids in a secure place and out of reach of others (this may include visitors, children, friends, and family).? Safely dispose of unused prescription opioids: Find your community drug take-back program or your pharmacy mail-back program, or flush them down the toilet, following guidance from the Food and Drug Administration (www.fda.gov/Drugs/Resou rcesForYou).? Visit www.cdc.gov/drugoverdose to learn about the risks of opioids abuse and overdose.? If you believe you may be struggling with addiction, tell your health field care manager and ask for guidance or call [facility]?S National Helpline at 2-163-260-FSHL. o Source: US Department of Health and Human Services/Center for Disease Control & Prevention [facility] Medications Given:Medication Dose Route acetaminophen-hydrocodon e 1.00 tab(s) Oral Medication Information:[facility], [address] [place], [place] [id number], [phone]-hydroc odone ([place] 325 mg-5 mg oral tablet) 1 Tabs By Mouth every 6 hours. Refills: 0.ondansetron (Zofran ODT 4 mg Tab-Dis) 1 Tabs By Mouth every 6 hours as needed Nausea. Refills: 0.Comment: Pharmacy Information: [facility] [place] Th ank you for choosing [facility] ent Education Materials: MiscarriageA miscarriage is the sudden loss of an unborn baby (fetus) before the 20th week of . Most miscarriages happen in the first 3 months of . Sometimes, it happens before a woman even knows she is . A miscarriage is also called a spontaneous miscarriage or early loss. Having a miscarriage can be an emotional experience. Talk with your caregiver about any questions you may have about miscarrying, the grieving process, and your future plans.CAUSES? Problems with the chromosomes that make it impossible for the baby to develop normally. Problems with the baby's genes or chromosomes are most often the result of errors that occur, by chance, as the embryo divides and grows. The problems are not inherited from the parents.? Infection of the cervix or uterus. ? Hormone problems. ? Problems with the cervix, such as having an incompetent cervix. This is when the tissue in the cervix is not strong enough to hold the . ? Problems with the uterus, such as an abnormally shaped uterus, uterine fibroids, or congenital abnormalities. ? Certain medical conditions. ? Smoking, drinking alcohol, or taking illegal drugs. ? Trauma. Often, the cause of a miscarriage is unknown. SYMPTOMS? Vaginal bleeding or spotting, with or without cramps or pain.? Pain or cramping in the abdomen or lower back.? Passing fluid, tissue, or blood clots from the vagina. DIAGNOSISYour caregiver will perform a physical exam. You may also have an ultrasound to confirm the miscarriage. Blood or urine tests may also be ordered.TREATMENT? Sometimes, treatment is not necessary if you naturally pass all the tissue that was in the uterus. If some of the fetus or placenta remains in the body (incomplete miscarriage), tissue left behind may become infected and must be removed. Usually, a dilation and curettage (D and C) procedure is performed. During a D and C procedure, the cervix is widened (dilated) and any remaining or placental tissue is gently removed from the uterus. ? Antibiotic medicines are prescribed if there is an infection. Other medicines may be given to reduce the size of the uterus (contract) if there is a lot of bleeding. ? If you have Rh negative blood and your baby was Rh positive, you will need a Rh immunoglobulin shot. This shot will protect any future baby from having Rh blood problems in future pregnancies. HOME CARE INSTRUCTIONS? Your caregiver may order bed rest or may allow you to continue light activity. Resume activity as directed by your caregiver. ? Have someone help with home and family responsibilities during this time. ? Keep track of the number of sanitary pads you use each day and how soaked (saturated) they are. Write down this information. ? Do not use tampons. Do not douche or have sexual intercourse until approved by your caregiver. ? Only take nwic-uda-tmselep or prescription medicines for pain or discomfort as directed by your caregiver. ? Do not take aspirin. Aspirin can cause bleeding. ? Keep all follow-up appointments with your caregiver. ? If you or your partner have problems with grieving, talk to your caregiver or seek counseling to help cope with the loss. Allow enough time to grieve before trying to get again. SEEK IMMEDIATE MEDICAL CARE IF:? You have severe cramps or pain in your back or abdomen.? You have a fever.? You pass large blood clots (walnut-sized or larger) or tissue from your vagina. Save any tissue for your caregiver to inspect. ? Your bleeding increases. ? You have a thick, bad-smelling vaginal discharge.? You become lightheaded, weak, or you faint. ? You have chills. MAKE SURE YOU:? Understand these instructions.? Will watch your condition.? Will get help right away if you are not doing well or get worse.Document Released: 01/14/2002 Document Revised: 11/15/2013 Document Reviewed: 09/08/2012ExitCare? Patient Information ?2015 [employer]. This information is not intended to replace advice given to you by your health care provider. Make sure you discuss any questions you have with your health care provider.Return if you have any problems or concerns. Call your regular Pilot Plant Operator Helper or the one provided for a follow up appointment. ANSON Garces MELANIE J , have received the following patient education materials/instructions and have verbalized understanding: Patient Education Materials: Miscarriage Follow-up Instructions: With: Address: When: Baltazar POSEY, [facility] [address], [place] [address] Business (1) Within 2 to 3 days Comments: Return to ED if symptoms worsen Prescriptions: [acetaminophen-hydrocodo ne ([place] 325 mg-5 mg oral tablet)] [ondansetron (Zofran ODT 4 mg Tab-Dis)] Patient Signature Date Clinician/Nurse Signature Date 07/02/18 16:14:02 Normal [facility] Hep Func Panelon 07-02-2018 Albumin mass conc 1.2 g/dL Normal 1.1-2.2 [facility] Comment on above: Performed By: #### 1 [id number], [id number], [id number], [id number] ####[facility] [id number] [place] [address] Albumin mass conc 3.7 g/dL Normal 3.3-5.0 [facility] Comment on above: Performed By: #### 1 [id number], [id number], [id number], [id number] ####[facility] [id number] [place] [address] ALP enzyme act/vol 69 Int._Unit/L Normal 21-98 [facility] Comment on above: Performed By: #### 1 [id number], [id number], [id number], [id number], [id number] ####[facility] [id number] [place] [address] ALT No additional P-5'-P enzyme act/vol 12 Int._Unit/L Normal 6-46 [facility] Comment on above: Performed By: #### 1 [id number], [id number], [id number], [id number] ####[facility] [id number] [place] [address] AST enzyme act/vol 15 Int._Unit/L Normal 5-43 [facility] Comment on above: Performed By: #### 1 [id number], [id number], [id number], [id number], 6160087, [id number] ####[facility] [address] [place] [address] Bilirubin mass conc 0.2 mg/dL Normal 0.0-1.1 [facility] Comment on above: Performed By: #### 1 [id number], 1424439, 2828451, 5115901, 0740963, 5555762 ####[facility] [address] [place] [address] Bilirubin.direct mass conc mg/dL Normal 0.1-0.4 [facility] Comment on above: Performed By: #### 1 [id number], 7075414, 5077532, 0879243, 8816705, 1408288 ####[facility] [address] [place] [address] Globulin Calculated mass conc (S) 3.2 g/dL Normal 1.4-4.0 [facility] Comment on above: Performed By: #### 1 [id number], 1234432, 8860714, 2536020, 1765503, 7062375 ####[facility] [address] [place] [address] Protein mass conc 6.9 g/dL Normal 6.0-7.8 [facility] Comment on above: Performed By: #### 1 [id number], 5553468, 7205583, 7691475, 4897393, 4994329 ####[facility] [address] [place] [address] Bilirubin.indirect [Mass or Moles/volume] in Serum or Plasma UT Abnormal 0.1-0.9 [facility] Comment on above: Result Comment: Resu lt verified by Discern Rule. Performed result UTC (Unable to Calculate) was sent as an Alpha code due the inability to calculate a valid numeric value. Performed By: #### 1 [id number], 0261810, 0054364, 4289773, 9338119, 1418951 ####[facility] [address] [place] [address] Lipase Levelon 07-02-2018 Lipase enzyme act/vol 22 unit/L Normal 13-58 [facility] Comment on above: Performed By: #### 1 7345787, 1575196, 6056779, 9650906, 4107084, 3626261 ####[facility] [address] [place] [address] UA With Cult Reflexon 2017 Bacteria LM Ql (Urine sed) TRACE Normal Trace [facility] Comment on above: Performed By: #### 1 [id number] ####[facility] [address] [place] [address] Bilirubin Ql (U) Negative Normal Negative [facility] Comment on above: Performed By: #### 1 [id number] ####[address] [address] Clarity Nom (U) SL CLOUDY Abnormal Clear [facility] Comment on above: Performed By: #### 1 [id number] ####[facility] [address] [place] [address] Color Auto Nom (U) YELLOW Normal Yellow [facility] Comment on above: Performed By: #### 1 [id number] ####[facility] [address] [place] [address] Epithelial cells.squamous LM.HPF #/area (Urine sed) 3-4 Normal 0-2 [facility] Comment on above: Performed By: #### 1 [id number] ####[facility] [address] [place] [address] Glucose Test strip mass conc (U) Negative Normal Negative [facility] Comment on above: Performed By: #### 1 [id number] ####[facility] [address] [place] [address] Hemoglobin Test strip Ql (U) 3+ Abnormal Negative [facility] Comment on above: Performed By: #### 1 6453075 ####[facility] [address] [place] [address] Ketones mass conc (U) Negative Normal Negative [facility] Comment on above: Performed By: #### 1 0623266 ####[facility] [address] [place] [address] [place].plasma/Lithi um.RBC mass ratio (Bld) >30 Abnormal 0-3 [facility] Comment on above: Performed By: #### 1 [id number] ####[facility] [address] [place] [address] Mucus LM Ql (Urine sed) 2+ Normal [facility] Comment on above: Performed By: #### 1 [id number] ####[address] [place] [address] Nitrite Test strip Ql (U) Negative Normal Negative [facility] Comment on above: Performed By: #### 1 [id number] ####[address] [address] pH Test strip (U) 6.0 [pH] Invalid Interpretation Code 5.0-9.0 [facility] Comment on above: Performed By: #### 1 [id number] ####[facility] [address] [place] [address] Protein mass conc (U) Negative Normal Negative [facility] Comment on above: Performed By: #### 1 [id number] ####[address] [address] Specific gravity Relative Density (U) 1.025 Invalid Interpretation Code 1.005-1.030 [facility] Comment on above: Performed By: #### 1 [id number] ####[facility] [address] [place] [address] UA Spec Desc Random Urine Normal [facility] Comment on above: Performed By: #### 1 [id number] ####[facility] [address] [place] [address] Urobilinogen Test strip Qn (U) 0.2 {Laquita'U}/dL Normal 0.0-1.0 [facility] Comment on above: Performed By: #### 1 [id number] ####[facility] [address] [place] [address] WBC Auto Ql (U) Negative Normal Negative [facility] Comment on above: Performed By: #### 1 [id number] ####[facility] [address] [place] [address] WBC LM.HPF #/area (Urine sed) 0-5 Normal 0-5 [facility] Comment on above: Performed By: #### 1 3062361 ####[facility] [address] [place] [address] Yeast LM Ql (Urine sed) TRACE Normal [facility] Comment on above: Performed By: #### 1 [id number] ####[facility] [address] [place] [address] US 1st Trimesteron 07-02-2018 US 1st Trimester Exam Date/Time:07/02/2018 15:40 ESTReason for Exam:Vaginal bleedingReportIMPRESSION : NO EVIDENCE OF INTRAUTERINE OR ECTOPIC AT THIS TIME. PATIENTMAY HAVE HAD AN . PATIENT MAY ALSO HAVE A VERY EARLY . RECOMMENDCORRELATION WITH SERIAL BETA HCG LEVELS. CONSIDER FOLLOW-UP SONOGRAM.NO FREE FLUID OR ABNORMAL ADNEXAL MASS.CLINICAL HISTORY: Vaginal bleeding started yesterday. Increasing vaginal bleeding. LMP: 05/19/2018. By LMP estimated gestational age is 6 weeks 2 days. 4 para3.COMPARISONS: NONEFINDINGS: Transabdominal/transvagi nal ultrasonography of the uterus was performed. No evidence of intrauterine or ectopic gestational sac . Uterus has a volume of 11 5mL. Uterus measures 9.5 x 5.6 x 4.2 cm. Endometrium measures 0.8 cm in AP diameter.The cervix is closed and elongated. There are nabothian cysts in the cervix.The maternal right ovary has a volume of 5.8 mL.The maternal left ovary has a volume of 2.1 mL. Color Vascular flow is seen in right ovary.No free fluid is visualized. No sign of subchorionic hemorrhage. There is no abnormal adnexal mass. FINAL REPORT Dictated: 07/02/2018 3:52 pm Melony Barnes MD Signed (Electronic Signature): 07/02/2018 3:52 pm Signed by: Melony Barnes MD Transcribed by: MELINDA Technologist: TITI Walters [facility] US Transvaginalon 07-02-2018 US Transvaginal Exam Date/Time:07/02/2018 15:54 ESTReason for Exam:Vaginal bleedingReportPlease refer to transabdominal pelvic sonogram report. FINAL REPORT Dictated: 07/02/2018 3:56 pm Melony Barnes MD Signed (Electronic Signature): 07/02/2018 3:56 pm Signed by: Melony Barnes MD Transcribed by: MELINDA Technologist: [facility] Selena [facility] eGFRon 07-02-2018 GFR/1.73 sq M predicted among blacks MDRD vol rate/area (S/P/Bld) mL/min/{1.73_m2} Normal >=59 [facility] Comment on above: Order Comment: Order added by Discern Expert. Result Comment: eGFR is race adjusted. AA=. Performed By: #### 1 [id number], 4207736, 9654782, 4624372, 0939936, 4137944 ####[facility] [address] [place] [address] GFR/1.73 sq M predicted among non-blacks MDRD vol rate/area (S/P/Bld) mL/min/{1.73_m2} Normal >=59 [facility] Comment on above: Order Comment: Order added by Discern Expert. Result Comment: Documentation Writer eugenio kidney disease could be indicated at eGFR's of less than 60 mL/min/1.73m2. Kidney failure is indicated at less than 15 mL/min/1.73m2. Performed By: #### 1 [id number], 1109744, 9250518, 0904360, 6181142, 2858586 ####[facility] [address] [place] [address] Encounters Encounter Date Encounter Type Care Provider Facility Start: 11-26-2023 End: 11-27-2023 ambulatory Ortiz MOSES Facility:[facility] [place] Start: 11-26-2023 End: 11-26-2023 Patient encounter procedure Ortiz MOSES [facility] Start: 11-24-2023 End: 11-24-2023 ambulatory ORTIZ MOSES Not Available Start: 05-13-2023 End: 05-13-2023 Emergency department patient visit Tomer Portillo Facility:[facility] [place] [facility] Start: 05-23-2022 End: 05-23-2022 ambulatory BEAU EDIE Facility: Start: 07-10-2021 End: 07-10-2021 ambulatory BEAU EDIE Facility:[facility] Start: 07-02-2018 End: 07-02-2018 Emergency department patient visit Demetrius [id number] UNKNOWN ELMIRA Facility:[facility] [place] Procedures Date Procedure Procedure Detail Performing Clinician Start: 07-13-2020 Cholecystectomy Ortiz IYER Immunizations Immunization Date Immunization Notes Care Provider Fa cility NEGATED: Highlighted row has not occurred!07-14-2020 influenza, seasonal, injectable Ortiz MOSES [facility] Payers Date Payer Category Payer Unknown [id number] 2.16.84 [id number] 1986 Unknown [id number] 2.16.84 [id number] 1986 Unknown [id number] 2.16.84 [id number] 1986 Unknown [id number] 2.16.84 [id number] 1986 Unknown [id number] 2.16.8 [id number] 1986 Unknown [id number] 2.16.8 [id number] 1959 Self-pay 1958 Unknown [id number] Social History Date Type Detail Facility Tobacco smoking status No Smoking Status Entered [facility] Sex Assigned At Female [facility] Clinical Note 07-10-2021 Note Date & Type Note Facility 07-10-2021 Note PROCEDURE: XR ANKLE LT MIN 3 V COMPARISON: None. HISTORY: Bone injury FINDINGS: BONES:No acute fracture or dislocation. Corticated calcific densities identified along the inferior aspect of the medial and lateral malleolus, remote injury is favored. SOFT TISSUES:Negative. No visible soft tissue swelling. EFFUSION:None visible. OTHER: Negative. IMPRESSION: No acute fracture Electronically authenticated by: JAMISON CAMARENA Date: 2021-07-10 13:10 [facility] Evaluation + Plan note Note Date & Type Note Facility Evaluation + Plan note No data available for this section [facility] Hospital Discharge instructions Note Date & Type Note Facility Hospital Discharge instructions No data available for this section [facility] Progress note Note Date & Type Note Facility Progress note No data available for this section [facility] Summary Purpose Family History No Family History Records FoundNo Family History Records FoundNo Family History Records Found No data available for this section No Family History Records Found Advance Directives No Advanced Directives Records FoundNo Advanced Directives Records FoundNo Advanced Directives Records FoundNo Advanced Directives Records Found Additional Source Comments INFORMATION SOURCE (unrecogn ized section and content) DATE CREATED AUTHOR 08/13/2018 [facility] DATE CREATED AUTHOR AUTHOR'S ORGANIZ ATION 05/27/2022 [facility] DATE CREATED AUTHOR AUTHOR'S ORGANIZ ATION 11/25/2023 [facility] EPIC DATE CREATED AUTHOR AUTHOR'S ORGANIZ ATION 11/28/2023 [facility] FOR RECORDS PERTAINING TO PATIENTS WHO ARE OR HAVE BEEN ENROLLED IN A CHEMICAL DEPENDENCY/SUBSTANCEABUSE PROGRAM, SOME INFORMATION MAY BE OMITTED. This clinical summary was aggregated from multiple sources. Caution should be exercised in using it in the provision of clinical care. This summary normalizes information from multiple sources, and as a consequence, information in this document may materially change the coding, format and clinical context of patient data. In addition, data may be omitted in some cases. CLINICAL DECISIONS SHOULD BE BASED ON THE PRIMARY CLINICAL RECORDS. [facility] [employer] [facility]. provides no warranty or guarantee of the accuracy or completeness of information in this document.
[2023-12-11 16:55] LABS: HCG Quantitative 54 mIU/mL
== END 2023-12-11 15:37 | disposition home or self-care (01) ==
LOC: LAB 15:37
PROVIDERS: PCP Student in an Organized Health Care Education/Training Program; Visit Provider Obstetrics & Gynecology
DX: N92.6 Irregular menstruation, unspecified (principal)
CPT/HCPCS: 36415; 84702

== ENCOUNTER 2023-12-30 13:42 | Outpatient (OUT) | payer BC, SELFPAY ==
--- OUTSIDE RECORDS SUMMARY | 2023-12-30 13:54 | XMS_ITS | CCD ---
Author Organization [facility] Inform ion Partnership [facility] Care Team Providers Care Formation Testing Operator Name Role Phone Demetrius [phone] UNKNOWN Unavailable Unavailable Kenzie Akers Unavailable Unavailable Kenzie Akers Unavailable Unavailable BEAU IRIAZRRY Primary Care Unavailable MEREDITH MILLER Admitting Unavailable MEREDITH MILLER Attending Unavailable MEREDITH MILLER Consulting Unavailable TORRES CHOI Consulting Unavailable EDIE BEAU Primary Care Unavailable MEREDITH MILLER Admitting Unavailable [...] cramping, # 12 cap(s), Refills(s) 0, Pharmacy: [facility], 170, cm, 05/13/23 11:38:00 EDT, [...] Ordered Start: 07-14-2020 take 1 capsule by [facility] twice daily as needed for constipation Colace [...] Nausea/Vomiting, # 12 tab(s), Refills(s) 0, Pharmacy: [facility], 170, cm, 05/13/23 11:38:00 EDT, [...] Test Name Value Interpretation Reference Range Facility [facility] 11-26-2023 HCG.beta subunit Qn 622 m[IU]/mL High 1-3 [facility] Comment on above: Result Comment: 'F N ON < 1 - 3' ' 0.2 - 1 WEEK = 5 TO 50' ' 1 - 2 WEEKS = 50 - 500' ' 2 - 3 WEEKS = 100 - 5000' ' 3 - 4 WEEKS = 500 - 79359' ' 4 - 5 WEEKS = 1000 - 82585' ' 5 - 6 WEEKS = 81771 - 885786' ' 6 - 8 WEEKS = 42038 - 629263' ' 8 - 12 WEEKS = 16307 - 403725' Performed By: #### 2 668853, 89886984, 1418815, 9609571, 4918363, 3916163 #### [facility] [address] [place] [address] CHEMISTRYOrdered By: SYSTEM SYSTEM on 11-26-2023 HCG.beta [...] 3 - 4 WEEKS = 500 - 56658' ' 4 - 5 WEEKS = 1000 - 98743' ' 5 - 6 WEEKS = 15923 - 338337' ' 6 - 8 WEEKS = 55242 - ' ' 8 - 12 WEEKS = 91503 - 385566' Consent for Treatmenton 11-03 Consent for Treatment [id number]#1.00TIF F Normal [facility] Physician Orderon 11-26-2023 Physician Order [id number]#1.00TIF F Normal [facility] Physician Order [id number]#1.00TIF F Normal [facility] Auto Diffon 05-13-2023 Basophils/100 WBC (Bld) 0.6 % Normal 0.0-2.0 [facility] Comment on above: Order Comment: Order Added by Discern Expert. Performed By: #### 2 718946, 77110337, 8100033, 3628216, 8189138, 4701255 #### [facility] [address] [place] [address] Basophils/Leukocytes Auto (Bld) [Pure # fraction] 0.0 E9/L Normal 0.0-0.2 [facility] Comment on above: Order Comment: Order Added by Discern Expert. Performed By: #### 2 039251, 91783105, 2821929, 2773478, 5408332, 1832458 #### [facility] [address] [place] [address] Eosinophils/100 WBC (Bld) 3.9 % Normal 0.0-8.0 [facility] Comment on above: Order Comment: Order Added by Discern Expert. Performed By: #### 2 714291, 10554782, 1716063, 2866907, 2982077, 6831906 #### [facility] [address] [place] [address] Eosinophils/Leukocyt es Auto (Bld) [Pure # fraction] 0.3 E9/L Normal 0.0-0.5 [facility] Comment on above: Order Comment: Order Added by Discern Expert. Performed By: #### 2 594845, 10386252, 7409836, 2291321, 5737610, 1808580 #### [facility] [address] [place] [address] 27551 Lymphocytes/100 WBC (Bld) 32.4 % Normal 14.0-50.0 [facility] Comment on above: Order Comment: Order Added by Discern Expert. Performed By: #### 2 801116, 91711118, 2710582, 7847422, 1671720, 1110345 #### [facility] [address] [place] [address] 52278 Lymphocytes/Leukocyt es Auto (Bld) [Pure # fraction] 2.6 E9/L Normal 1.0-4.0 [facility] Comment on above: Order Comment: Order Added by Discern Expert. Performed By: #### 2 251310, 11643989, 3232111, 0911369, 8263434, 2408863 #### [facility] [address] [place] [address] 69046 Monocytes/100 WBC (Bld) 6.7 % Normal 4.0-14.0 [facility] Comment on above: Order Comment: Order Added by Discern Expert. Performed By: #### 2 404457, 23376061, 3953297, 3968984, 8298085, 6151431 #### [facility] [address] [place] [address] 33461 Monocytes/Leukocytes Auto (Bld) [Pure # fraction] 0.5 E9/L Normal 0.2-1.0 [facility] Comment on above: Order Comment: Order Added by Discern Expert. Performed By: #### 2 125669, 25471938, 5127643, 9005806, 7285084, 0903036 #### [facility] [address] [place] [address] 30157 Neutrophils/100 WBC (Bld) 56.4 % Normal 36.0-75.0 [facility] Comment on above: Order Comment: Order Added by Discern Expert. Performed By: #### 2 039374, 49660256, 7448568, 1955451, 0409609, 9000205 #### [facility] [address] [place] [address] Neutrophils/Leukocyt es Auto (Bld) [Pure # fraction] 4.6 E9/L Normal 2.0-7.5 [facility] Comment on above: Order Comment: Order Added by Discern Expert. Performed By: #### 2 547692, 51674603, 5703095, 2126923, 4485750, 3154051 #### [facility] [address] [place] [address] BMPon 05-13-2023 Creatinine [Mass/Vol] 0.8 mg/dL Normal 0.5-1.3 [facility] Comment on above: Performed By: #### 2 204698, 88615935, 9896845, 2348912, 1373895, 9722108 #### [facility] [address] [place] [address] Urea nitrogen [Mass/Vol] 8 mg/dL Normal 5-21 [facility] Comment on above: Performed By: #### 2 175043, 30229310, 3876650, 1711416, 1320478, 3957501 #### [facility] [address] [place] [address] Urea nitrogen/Creatinine [Mass ratio] 10 No Units Normal 10-20 [facility] Comment on above: Performed By: #### 2 455414, 83617241, 5276467, 1360661, 1801558, 1275843 #### [facility] [address] [place] [address] Anion gap [Moles/Vol] 11 mmol/L Normal 6-16 [facility] Comment on above: Performed By: #### 2 131256, 56665261, 8278264, 1941542, 3582545, 5826867 #### [facility] [address] [place] [address] Calcium [Mass/Vol] 9.2 mg/dL Normal 8.9-11.1 [facility] Comment on above: Performed By: #### 2 399213, 11990652, 2090133, 1779386, 9471503, 2373952 #### [facility] [address] [place] [address] Chloride [Moles/Vol] 104 mmol/L Normal 101-111 [facility] Comment on above: Performed By: #### 2 128526, 45420762, 4327049, 5884653, 8650589, 8253205 #### [facility] [address] [place] [address] CO2 [Moles/Vol] 24 mmol/L Normal 21-31 [facility] Comment on above: Performed By: #### 2 046950, 68676125, 5551782, 9914242, 1222341, 1041099 #### [facility] [address] [place] [address] Glucose [Mass/Vol] 104 mg/dL Normal 55-199 [facility] Comment on above: Result Comment: If t his glucose result represents a fasting glucose, interpretation should refer to the following reference range: 55-99 mg/dL Performed By: #### 2 142877, 65261509, 3431732, 8867720, 6612972, 4105687 #### [facility] [address] [place] [address] Potassium [Moles/Vol] 3.8 mmol/L Normal 3.5-5.3 [facility] Comment on above: Performed By: #### 2 567365, 33715329, 5215267, 3908749, 7819237, 6060290 #### [facility] [address] [place] [address] Sodium [Moles/Vol] 135 mmol/L Normal 135-145 [facility] Comment on above: Performed By: #### 2 822759, 19082144, 8559703, 8804625, 7297118, 8285646 #### [facility] [address] [place] [address] CBC w/ Auto Diffon - 3 Erythrocyte distribution width (RBC) [Ratio] 17.4 % High 10.9-14.2 [facility] Comment on above: Performed By: #### 2 657056, 48509673, 1122475, 1130257, 0078820, 9141121 #### [facility] [address] [place] [address] 12589 Hematocrit (Bld) [Volume fraction] 38.2 % Normal 34.0-46.0 [facility] Comment on above: Performed By: #### 2 233636, 59371411, 3139542, 3215432, 6468439, 8500977 #### [facility] [address] [place] [address] 90758 Hemoglobin (Bld) [Mass/Vol] 12.4 g/dL Normal 12.0-16.0 [facility] Comment on above: Performed By: #### 2 952277, 28103618, 9712176, 6187414, 9279267, 1125588 #### [facility] [address] [place] [address] 61330 MCH (RBC) [Entitic mass] 26.2 pg Low 27.0-34.0 [facility] Comment on above: Performed By: #### 2 499855, 54587014, 4212160, 1846265, 9833094, 3689480 #### [facility] [address] [place] [address] 61214 MCHC (RBC) [Mass/Vol] 32.6 g/dL Normal 31.4-36.0 [facility] Comment on above: Performed By: #### 2 429268, 37706769, 5115334, 2832918, 4945606, 2309818 #### [facility] [address] [place] [address] 35169 MCV (RBC) [Entitic vol] 80.5 fL Normal 80.0-100.0 [facility] Comment on above: Performed By: #### 2 400765, 74411766, 7734203, 5139997, 1368048, 6048582 #### [facility] [address] [place] [address] 46848 Platelet mean volume (Bld) [Entitic vol] 8.2 fL Normal 6.4-10.8 [facility] Comment on above: Performed By: #### 2 255996, 26548309, 1389448, 5075911, 8678082, 2506773 #### [facility] [address] [place] [address] Platelets (Bld) [#/Vol] 353.0 E9/L Normal 150.0-500.0 [facility] Comment on above: Performed By: #### 2 787276, 47320201, 2511316, 9280889, 0797182, 6876021 #### [facility] [address] [place] [address] RBC (Bld) [#/Vol] 4.8 E12/L Normal 4.3-5.9 [facility] Comment on above: Performed By: #### 2 709338, 80990200, 4741542, 2343414, 5703699, 8547985 #### [facility] [address] [place] [address] WBC corrected for nucl RBC Auto (Bld) [#/Vol] 8.1 E9/L Normal 4.0-11.0 [facility] Comment on above: Performed By: #### 2 747241, 23259368, 5860303, 9584423, 0439216, 5500348 #### [facility] [address] [place] [address] Abdomen/Pelvis w/o Contra ston 05-13-2023 CT [...] No Oral contrast amount in ml's: 0 Normal [facility] Consent for Treatmenton 05-04 Consent for Treatment [id number] F Normal [facility] Discharge Instructionson Discharge Instructions [id number] FF Normal [facility] ED Clinical Summaryon 2022 ED Clinical Summary (Inserted Image. Elissa ble to display) [place] [id number] ED Clinical Summary Person Information Name: FRANKIE GRIGGS [place] Age: 37 Years : 1985 Sex: Female Language: Ukrainian PCP: NONE, XXXX Marital Status: Phone: [phone] Visit Id: Visit Reason: Diarrhea; Vomiting; Abdominal [...] 05/13/2023 15:09:49 05/13/2023 15:09:49 05/13/2023 15:09:49 ADDRESS: [address] [place] [id number] [facility] DOC NOTES: MEDICAL INFORMATION: Prescriptions Given: New Medications [facility], [address] [facility] [place] [id number], [phone] dicyclomine (Bentyl 10 mg Cap) 1 Capsules [...] Address: When: Liza Valdivia [address] [place], [place] [id number] Business (1) In 3 days 05/16/2023 Comments: [...] symptoms. DIAGNOSIS: Diarrhea; Nausea and vomiting Normal [facility] ED Note-Physicianon 05-13-20 ED Note-Physician Basic Information [...] cramping, # 12 cap(s), Refills(s) 0, Pharmacy: [facility] 1985, 170, cm, 05/13/23 11:38:00 EDT, [...] Nausea/Vomiting, # 12 tab(s), Refills(s) 0, Pharmacy: [facility] 1986, 170, cm, 05/13/23 11:38:00 EDT, [...] [address] [place] [address]- Business (1) Additional Instructions: Call the office of your primary care doctor to arrange for follow-up within the above-stated timeframe. Follow-up with your primary care doctor about this ED visit. You should review your labs, imaging, and diagnoses from this ED visit with your primary care (more content not included)... Normal [facility] Comment on above: Result Comment: Elec tronically Signed By: Tmoer Portillo DO\.br\Date and Time Signed: 05/13/23 17:45 [...] added (diluted fruit juice). ? Eat bland, mcct-wh-kodhlw foods in small amounts as you are able. These foods include bananas, applesauce, rice, lean meats, toast, and crackers. ? Avoid fluids that contain a lot of sugar or caffeine, such as energy drinks, sports drinks, and soda. ? Avoid alcohol. ? Avoid spicy or fatty foods. General instructions ? Take izdd-qwc-kyxthuh and prescription medicines only as told by your health care provider. ? Drink enough fluid to keep your urine pale yellow. ? Wash your hands often using soap and water for at least 20 seconds. If soap and water are not available, use hand soap chipper. ? Make sure that everyone in your [...] and drinking to prevent dehydration. ? Take sfqz-psa-pkaujbo and prescription medicines only as told by [...] provider. Document Revised: 01/25/2022 Document Reviewed: 01/25/2022 [employer] Patient Education ? 2022 [employer]. Infectious Disease Diarrhea, Adult Diarrhea is frequent [...] oral rehydration solution (ORS). This is an syvt-dkw-zpnltsk medicine that helps return your body to its normal balance of nutrients and (more content not included)... Normal [facility] ED Patient Summaryon 023 ED Patient Summary (Inserted Image. Elissa ble to display) [place] [id number] Patient Discharge Instructions Person Information Name: FRANKIE GRIGGS Age: 37 Years Arrival Date: 05/13/2023 11:30:59 Discharge Diagnosis: Diarrhea; Nausea and vomiting Primary Care Physician: NONE, XXXX Provider Information Primary Provider: Tomer Portillo DO Advanced Bulb Weeder:None The exam and treatment you received in the Emergency Department were for an urgent problem and are not intended as complete care. It is important that you follow up with a doctor, nurse practitioner, or physician?s carpenter assistant installer for ongoing care. If your symptoms become [...] [address] [place] [address] Business (1) In 3 days 05/16/2023 Comments: [...] opioids can be used to help relieve lzcyeijw-rn-wqkkrs pain and are often prescribed following a [...] Talk abo (more content not included)... Normal [facility] Hep Func Panelon 05-13-2023 Albumin [Mass/Vol] 3.8 g/dL Normal 3.3-5.0 [facility] Comment on above: Performed By: #### 2 908434, 11842266, 3241288, 3489613, 8061161, 8895963 #### [facility] [address] [place] [address] Albumin/Globulin (S) [Mass conc ratio] 1.1 Normal 1.1-2.2 [facility] Comment on above: Performed By: #### 2 994395, 96498702, 1693584, 5458686, 1506707, 0312573 #### [facility] [address] [place] [address] ALP [Catalytic activity/Vol] 77 Int._Unit/L Normal 21-98 [facility] Comment on above: Performed By: #### 2 322436, 71174680, 7880948, 5122981, 0400751, 0396680 #### [facility] [address] [place] [address] ALT No additional P-5'-P [Catalytic activity/Vol] 26 Int._Unit/L Normal 6-46 [facility] Comment on above: Performed By: #### 2 371389, 73209483, 2818410, 6512741, 4126316, 7673451 #### [facility] [address] [place] [id number] AST [Catalytic activity/Vol] 25 Int._Unit/L Normal 5-43 [facility] Comment on above: Performed By: #### 2 925192, 87305929, 3007557, 7365887, 4224215, 6071855 #### [facility] [address] [place] [address] Bilirubin [Mass/Vol] 0.4 mg/dL Normal 0.0-1.1 [facility] Comment on above: Performed By: #### 2 250483, 95421825, 9882057, 2932523, 3372026, 7391385 #### [facility] [address] [place] [address] Bilirubin.direct [Mass/Vol] 0.1 mg/dL Normal 0.1-0.4 [facility] Comment on above: Performed By: #### 2 051668, 26914351, 2350730, 8605823, 5857366, 2520577 #### [facility] [address] [place] [address] Bilirubin.indirect [Mass or moles/Vol] 0.3 mg/dL Normal 0.1-0.9 [facility] Comment on above: Performed By: #### 2 293223, 60118230, 1146542, 6538927, 7493708, 9739705 #### [facility] [address] [place] [address] Globulin (S) [Mass/Vol] 3.6 g/dL Normal 1.4-4.0 [facility] Comment on above: Performed By: #### 2 936190, 65533083, 2844439, 3045228, 9667179, 0096771 #### [facility] [address] [place] [address] Protein [Mass/Vol] 7.4 g/dL Normal 6.0-7.8 [facility] Comment on above: Performed By: #### 2 027506, 13512006, 4753684, 9939013, 9774669, 6701440 #### [facility] [address] [place] [address] Lipase Levelon 05-13-2023 Lipase [Catalytic activity/Vol] 24 U/L Normal 13-58 [facility] Comment on above: Performed By: #### 2 840326, 44077154, 0926460, 1583908, 3583235, 6151267 #### [facility] [address] [place] [address] U BetaHcg Qualon 05-13-2023 HCG.beta subunit (U) [Moles/Vol] Negative Normal [facility] Comment on above: Performed By: #### 2 997878, 04273879, 5469566, 9956722, 6161220, 2612307 #### [facility] [address] [place] [address] UA With Cult Reflexon 2022 Bacteria LM Ql (Urine sed) TRACE Normal Trace [facility] Comment on above: Performed By: #### 1 3895572 #### [facility] [address] [place] [address] Bilirubin Ql (U) Negative Normal Negative [facility] Comment on above: Performed By: #### 1 2182768 #### [facility] [address] [place] [address] Clarity (U) CLEAR Normal Clear [facility] Comment on above: Performed By: #### 1 9719447 #### [facility] [address] [place] [address] Color (U) YELLOW Normal Yellow [facility] Comment on above: Performed By: #### 1 7323016 #### [facility] [address] [place] [address] Epithelial cells.squamous LM.HPF (Urine sed) [#/Area] 0-2 Normal 0-2 [facility] Comment on above: Performed By: #### 1 5874112 #### [facility] [address] [place] [address] Glucose Test strip (U) [Mass/Vol] Negative Normal Negative [facility] Comment on above: Performed By: #### 1 7399344 #### [facility] [address] [place] [address] Hemoglobin Ql (U) Negative Normal Negative [facility] Comment on above: Performed By: #### 1 2616859 #### [facility] [address] [place] [address] Ketones (U) [Mass/Vol] Negative Normal Negative [facility] Comment on above: Performed By: #### 1 8274553 #### [facility] [address] [place] [address] [place].plasma/Lithi um.RBC (Bld) [Mass ratio] 0-3 Normal 0-3 [facility] Comment on above: Performed By: #### 1 8443365 #### [facility] [address] [place] [address] Mucus Ql (Urine sed) TRACE Normal [facility] Comment on above: Performed By: #### 1 2365839 #### [facility] [address] [place] [address] Nitrite Ql (U) Negative Normal Negative [facility] Comment on above: Performed By: #### 1 3864461 #### [facility] [address] [place] [address] pH (U) 7.5 [pH] Invalid Interpretation Code 5.0-9.0 [facility] Comment on above: Performed By: #### 1 8945101 #### [facility] [address] [place] [address] Protein (U) [Mass/Vol] Negative Normal Negative [facility] Comment on above: Performed By: #### 1 8757686 #### [facility] [address] [place] [address] Specific gravity (U) [Rel density] 1.015 Invalid Interpretation Code 1.005-1.030 [facility] Comment on above: Performed By: #### 1 1865995 #### [facility] [address] [place] [address] Type of Urine collection method Clean Catch Normal [facility] Comment on above: Performed By: #### 1 0342749 #### [facility] [address] [place] [address] Urobilinogen Qn (U) 0.2 {Laquita'U}/dL Normal 0.0-1.0 [facility] Comment on above: Performed By: #### 1 8158853 #### [facility] [address] [place] [address] WBC Auto Ql (U) Negative Normal Negative [facility] Comment on above: Performed By: #### 1 7746030 #### [facility] [address] [place] [address] WBC LM.HPF (Urine sed) [#/Area] 0-5 Normal 0-5 [facility] Comment on above: Performed By: #### 1 2634507 #### [facility] [address] [place] [address] eGFRon 05-13-2023 GFR/1.73 sq M.predicted among non-blacks MDRD (S/P/Bld) [Vol rate/Area] 98 mL/min/1.73 m2 Normal >=59 [facility] Comment on above: Order Comment: Order added by Discern Expert. Result Comment: Bleach Supervisor eugenio kidney disease could be indicated at eGFR's of less than 60 mL/min/1.73m2. Kidney failure is indicated at less than 15 mL/min/1.73m2. Performed By: #### 2 300781, 19514862, 3397701, 0841146, 3784069, 9890217 #### [facility] [address] [place] [address] CBC AUTO DIFFon 05-23-2022 BASO # 0.0 103/ul Normal 0.0-0.1 [facility] Comment on above: Performed By: #### C BC #### [facility] [address] [address] [address] Rebeca Kaplan Basophils/100 WBC (Bld) 0.6 % Normal 0.2-2.0 [facility] Comment on above: Performed By: #### C BC #### [facility] [address] [place] [address] Dr. Rebeca Kaplan EO # 0.1 103/ul Normal 0.0-0.7 [facility] Comment on above: Performed By: #### C BC #### [facility] [address] [place] [address] Dr. Rebeca Kaplan Eosinophils/100 WBC (Bld) 0.8 % Critically low 0.9-7.0 [facility] Comment on above: Performed By: #### C BC #### [facility] [address] [place] [address] Dr. Rebeca Kaplan Erythrocyte distribution width (RBC) [Ratio] 15.9 % Critically high 11.0-15.0 [facility] Comment on above: Performed By: #### C BC #### [facility] [address] [place] [address] Dr. Rebeca Kaplan Hematocrit (Bld) [Volume fraction] 38.1 % Normal 36.0-48.0 [facility] Comment on above: Performed By: #### C BC #### [facility] [address] [place] [address] Dr. Rebeca Kaplan Hemoglobin (Bld) [Mass/Vol] 11.9 g/dL Critically low 12.0-16.0 [facility] Comment on above: Performed By: #### C BC #### [facility] [address] [place] [address] Dr. Rebeca Kaplan IG # 0.02 10e3/ul Normal 0.00-0.03 [facility] Comment on above: Performed By: #### C BC #### [facility] [address] [place] [address] Dr. Rebeca Kaplan IG % 0.3 % Normal 0.0-0.5 [facility] Comment on above: Performed By: #### C BC #### [facility] [address] [place] [address] Dr. Rebeca Kaplan LYMPH # 2.4 103/ul Normal 1.2-3.8 [facility] Comment on above: Performed By: #### C BC #### [facility] [address] [place] [address] Dr. Rebeca Kaplan Lymphocytes/100 WBC (Bld) 33.2 % Normal 20.5-60.0 [facility] Comment on above: Performed By: #### C BC #### [facility] [address] [place] [address] Dr. Rebeca Kaplan MANUAL DIFF REQ NO Normal [facility] Comment on above: Performed By: #### C BC #### [facility] [address] [place] [address] Dr. Rebeca Kaplan MCH (RBC) [Entitic mass] 26.3 pg Critically low 26.7-34.0 [facility] Comment on above: Performed By: #### C BC #### [facility] [address] [place] [address] Dr. Rebeca Kaplan MCHC (RBC) [Mass/Vol] 31.2 g/dL Normal 29.9-35.2 [facility] Comment on above: Performed By: #### C BC #### [facility] [address] [place] [address] Dr. Rebeca Kaplan MCV (RBC) [Entitic vol] 84.3 fL Normal 81.0-99.0 [facility] Comment on above: Performed By: #### C BC #### [facility] [address] [place] [address] Dr. Rebeca Kaplan MONO # 0.4 103/ul Normal 0.3-0.8 [facility] Comment on above: Performed By: #### C BC #### [facility] [address] [place] [address] Dr. Rebeca Kaplan Monocytes/100 WBC (Bld) 5.4 % Normal 1.7-12.0 [facility] Comment on above: Performed By: #### C BC #### [facility] [address] [place] [address] Dr. Rebeca Kaplan NEUT # 4.3 103/ul Normal 1.4-6.5 [facility] Comment on above: Performed By: #### C BC #### [facility] [address] [place] [address] Dr. Rebeca Kaplan Neutrophils/100 WBC (Bld) 59.7 % Normal 43.0-75.0 [facility] Comment on above: Performed By: #### C BC #### [facility] [address] [place] [address] Dr. Rebeca Kaplan Platelet mean volume (Bld) [Entitic vol] 10.0 fL Normal 9.5-13.5 [facility] Comment on above: Performed By: #### C BC #### [facility] [address] [place] [address] Dr. Rebeca Kaplan PLT 356 103/ul Normal 150-450 [facility] Comment on above: Performed By: #### C BC #### [facility] [address] [place] [address] Dr. Rebeca Kaplan RBC 4.52 106/ul Normal 4.20-5.40 [facility] Comment on above: Performed By: #### C BC #### [facility] [address] [place] [address] Dr. Rebeca Kaplan WBC 7.2 103/ul Normal 4.0-11.0 [facility] Comment on above: Performed By: #### C BC #### [facility] [address] [place] [address] Dr. Rebeca Kaplan ER URINE PROFILEon 2 Bilirubin Ql (U) Negative Normal NEGATIVE [facility] Comment on above: Performed By: #### U MICRO, ERUR #### [facility] [address] [place] [address] Dr. Rebeca Kaplan Clarity (U) CLEAR Normal CLEAR [facility] Comment on above: Performed By: #### U MICRO, ERUR #### [facility] [address] [address] [address] Rebeca Kaplan Color (U) LT. YELLOW Normal YELLOW [facility] Comment on above: Performed By: #### U MICRO, ERUR #### [facility] [address] [address] [address] Rebeca Kaplan ERUAHD A micrscopic examina tion will be performed if indicated. Normal [facility] Comment on above: Performed By: #### U MICRO, ERUR #### [facility] [address] [place] [address] Dr. Rebeca Kaplan Glucose Ql (U) Negative Normal NEGATIVE [facility] Comment on above: Performed By: #### U MICRO, ERUR #### [facility] [address] [place] [address] Dr. Rebeca Kaplan Hemoglobin Ql (U) SMALL Abnormal NEGATIVE [facility] Comment on above: Performed By: #### U MICRO, ERUR #### [facility] [address] [place] [address] Dr. Rebeca Kaplan Ketones Ql (U) Negative Normal NEGATIVE [facility] Comment on above: Performed By: #### U MICRO, ERUR #### [facility] [address] [address] [address] Rebeca Kaplan LEUKOCYTES TRACE Abnormal NEGATIVE [facility] Comment on above: Performed By: #### U MICRO, ERUR #### [facility] [address] [place] [address] Dr. Rebeca Kaplan Nitrite Ql (U) Negative Normal NEGATIVE [facility] Comment on above: Performed By: #### U MICRO, ERUR #### [facility] [address] [place] [address] Dr. Rebeca Kaplan pH (U) 6.0 [pH] Normal 5-9 [facility] Comment on above: Performed By: #### U MICRO, ERUR #### [facility] [address] [place] [address] Dr. Rebeca Kaplan SPEC GRAVITY 1.010 Normal 1.005-<=1.02 5 [facility] Comment on above: Performed By: #### U MICRO, ERUR #### [facility] [address] [place] [address] Dr. Rebeca Kaplan UA PROTEIN Negative Normal NEGATIVE/ TRACE [facility] Comment on above: Performed By: #### U MICRO, ERUR #### [facility] [address] [address] [address] Rebeca Kaplan UR MICRO IND INDICATED Normal [facility] Comment on above: Performed By: #### U MICRO, ERUR #### [facility] [address] [place] [address] Dr. Rebeca Kaplan Urobilinogen Qn (U) 0.2 {Laquita'U}/dL Normal 0.2 - 1. 0 [facility] Comment on above: Performed By: #### U MICRO, ERUR #### [facility] [address] [place] [address] Dr. Rebeca Kaplan PREG HCG QUALon 05-23-2022 , QUAL Negative Normal NEGATIVE [facility] Comment on above: Performed By: #### P REG #### [facility] [address] [place] [address] Dr. Rebeca Kaplan PROF CHEM 8 (BAS METB)on Anion gap [Moles/Vol] 14.2 mmol/L Normal [facility] Comment on above: Performed By: #### B MP #### [facility] [address] [place] [address] Dr. Rebeca Kaplan Calcium [Mass/Vol] 9.0 mg/dL Normal 8.5-10.1 [facility] Comment on above: Performed By: #### B MP #### [facility] [address] [place] [address] Dr. Rebeca Kaplan Chloride [Moles/Vol] 103 mmol/L Normal 98-107 [facility] Comment on above: Performed By: #### B MP #### [facility] [address] [address] [address] Rebeca Kaplan CO2 [Moles/Vol] 26.5 mmol/L Normal 21.0-32.0 [facility] Comment on above: Performed By: #### B MP #### [facility] [address] [address] [address] Rebeca Kaplan Creatinine [Mass/Vol] 0.78 mg/dL Normal 0.55-1.02 [facility] Comment on above: Performed By: #### B MP #### [facility] [address] [address] [address] Rebeca Kaplan EGFR-AF MALDIVIAN >60 Normal >=60 [facility] Comment on above: Performed By: #### B MP #### [facility] [address] [address] [address] Rebeca Kaplan EGFR-NON AF MALDIVIAN >60 Normal >=60 [facility] Comment on above: Performed By: #### B MP #### [facility] [address] [address] [address] Rebeca Kaplan Glucose [Mass/Vol] 112 mg/dL Critically high 74-106 [facility] Comment on above: Performed By: #### B MP #### [facility] [address] [address] [address] Rebeca Kaplan Potassium [Moles/Vol] 3.7 mmol/L Normal 3.5-5.1 [facility] Comment on above: Performed By: #### B MP #### [facility] [address] [address] [address] Rebeca Kaplan Sodium [Moles/Vol] 140 mmol/L Normal 136-145 [facility] Comment on above: Performed By: #### B MP #### [facility] [address] [address] [address] Rebeca Kaplan Urea nitrogen [Mass/Vol] 11.0 mg/dL Normal 7.0-18.0 [facility] Comment on above: Performed By: #### B MP #### [facility] [address] [place] [address] Dr. Rebeca Kaplan Urea nitrogen/Creatinine [Mass ratio] 14.1 mg/mg Normal [facility] Comment on above: Performed By: #### B MP #### [facility] [address] [place] [address] Dr. Rebeca Kaplan URINE MICROSCOPIC ONLYon BACTERIA TRACE Abnormal NONE SEEN [facility] Comment on above: Performed By: #### U MICRO, ERUR #### [facility] [address] [place] [address] Dr. Rebeca Kaplan Bacteria identified Cx Nom (U) NOT INDICATED Normal [facility] Comment on above: Performed By: #### U MICRO, ERUR #### [facility] [address] [place] [address] Dr. Rebeca Kaplan CAST NONE SEEN Normal NONE SEEN [facility] Comment on above: Performed By: #### U MICRO, ERUR #### [facility] [address] [place] [address] Dr. Rebeca Kaplan Crystals LM Nom (Urine sed) NONE SEEN Normal NONE SEEN [facility] Comment on above: Performed By: #### U MICRO, ERUR #### [facility] [address] [place] [address] Dr. Rebeca Kaplan Epithelial cells LM Ql (Urine sed) FEW Abnormal NONE SEEN /RARE [facility] Comment on above: Performed By: #### U MICRO, ERUR #### [facility] [address] [place] [address] Dr. Rebeca Kaplan MUCOUS NONE SEEN Normal NONE SEEN [facility] Comment on above: Performed By: #### U MICRO, ERUR #### [facility] [address] [place] [address] Dr. Rebeca Kaplan RBC 0-2 Normal 0-2 [facility] Comment on above: Performed By: #### U MICRO, ERUR #### [facility] [address] [place] [address] Dr. Rebeca Kaplan WBC 0-2 Abnormal NONE SEEN [facility] Comment on above: Performed By: #### U MICRO, ERUR #### [facility] [address] [place], [place] [address] Dr. Rebeca Kaplan US PELVIS AND TRANSVAGon [...] by: TORRES CHOI Date: 2022-05-23 11:13 Normal [facility] C Cervicalon 07-04-2018 Protein mass conc MicrobiologyPROCEDUR [...] presentPerforming LocationsR1: This test was performed at: [facility], [address] [place] [address], [address] , Normal [facility] Comment on above: Performed By: #### 1 [id number], 9642724, 8924351, 1323656, 1204093, 4487858 ####[facility] [address] [place] [address] Coding Summary.on 07-03-2018 Coding Summary. CODING DATE: 018 FINAL [facility] STATUS: Home (Routine DC) PAYOR: Self Pay [...] Revised Date Saved: 07/03/2018 03:48 pm Normal [facility] Auto Diffon 07-02-2018 Basophils Auto #/vol (Bld) 0.9 % Normal 0.0-2.0 [facility] Comment on above: Order Comment: Order Added by Discern Expert. Performed By: #### 1 [id number], 9461441, 8658979, 8542399, 3934571, 3572958 ####[facility] [address] [place] [address] Basophils/Leukocytes Auto Pure number fraction (Bld) 0.1 E9/L Normal 0.0-0.2 [facility] Comment on above: Order Comment: Order Added by Discern Expert. Performed By: #### 1 [id number], 3915404, 4289507, 8276560, 0384628, 2919928 ####[facility] [address] [place] [address] Eosinophils/100 WBC Auto (Bld) 2.4 % Normal 0.0-8.0 [facility] Comment on above: Order Comment: Order Added by Discern Expert. Performed By: #### 1 2791446, 7517216, 3699721, 4382530, 4755395, 8487120 ####[facility] [address] [place] [address] Eosinophils/Leukocyt es Auto Pure number fraction (Bld) 0.2 E9/L Normal 0.0-0.5 [facility] Comment on above: Order Comment: Order Added by Discern Expert. Performed By: #### 1 6077142, 4444995, 0550451, 5942411, 2130968, 0473673 ####[address] [place] [address] Lymphocytes/100 WBC Auto (Bld) 32.0 % Normal 14.0-50.0 [facility] Comment on above: Order Comment: Order Added by Discern Expert. Performed By: #### 1 0626719, 0925505, 3814855, 4089632, 7406356, 2877436 ####[address] [place] [address] Lymphocytes/Leukocyt es Auto Pure number fraction (Bld) 2.6 E9/L Normal 1.0-4.0 [facility] Comment on above: Order Comment: Order Added by Marianela Expert. Performed By: #### 1 3037135, 6260934, 8778607, 5348037, 8104866, 8964366 ####[address] [address] Monocytes/100 WBC Auto (Bld) 6.5 % Normal 4.0-14.0 [facility] Comment on above: Order Comment: Order Added by Marianela Expert. Performed By: #### 1 9557246, 6310108, 5683518, 1983340, 9830036, 6359805 ####[address] [address] Monocytes/Leukocytes Auto Pure number fraction (Bld) 0.5 E9/L Normal 0.2-1.0 [facility] Comment on above: Order Comment: Order Added by Discern Expert. Performed By: #### 1 4504617, 7910303, 6405726, 9686290, 7775681, 2282775 ####[address] [address] Neutrophils/100 WBC Auto (Bld) 58.2 % Normal 36.0-75.0 [facility] Comment on above: Order Comment: Order Added by Marianela Expert. Performed By: #### 1 0459588, 1571230, 0741393, 3528243, 3227081, 4749915 ####[facility] [address] [place] [address] Neutrophils/Leukocyt es Auto Pure number fraction (Bld) 4.7 E9/L Normal 2.0-7.5 [facility] Comment on above: Order Comment: Order Added by Discern Expert. Performed By: #### 1 7976157, 8851055, 6398121, 2510041, 2634227, 7930801 ####[facility] [address] [place] [address] BMPon 07-02-2018 Creatinine mass conc 0.7 mg/dL Normal 0.5-1.3 [facility] Comment on above: Performed By: #### 1 9250160, 7123848, 2111574, 3558934, 9257924, 0593260 ####[facility] [address] [place] [address] Urea nitrogen mass conc 16 mg/dL Normal 5-21 [facility] Comment on above: Performed By: #### 1 2526209, 8804552, 9337307, 8268447, 1012962, 0312495 ####[facility] [address] [place] [address] Urea nitrogen/Creatinine mass ratio 23 No Units High 10-20 [facility] Comment on above: Performed By: #### 1 3860815, 7174852, 3476599, 9732746, 7256257, 6314205 ####[facility] [address] [place] [address] Anion gap 3 molar conc 10 mmol/L Normal 6-16 [facility] Comment on above: Performed By: #### 1 3403101, 9763673, 7928658, 9875608, 4012228, 3462902 ####[facility] [address] [place] [address] Calcium mass conc 8.9 mg/dL Normal 8.9-11.1 [facility] Comment on above: Performed By: #### 1 4290484, 0942808, 6207279, 4145303, 2669311, 4343207 ####[facility] [address] [place] [address] Chloride molar conc 106 mmol/L Normal 101-111 [facility] Comment on above: Performed By: #### 1 2881695, 8093497, 9834223, 8329515, 1558698, 0201223 ####[facility] [address] [place] [address] CO2 molar conc 24 mmol/L Normal 21-31 [facility] Comment on above: Performed By: #### 1 5166990, 0388973, 7434316, 6082351, 8769354, 0828545 ####[facility] [address] [place] [address] Glucose mass conc 97 mg/dL Normal 55-199 [facility] Comment on above: Result Comment: If t his glucose result represents a fasting glucose, interpretation should refer to the following reference range: 55-99 mg/dL Performed By: #### 1 3895124, 8180625, 5355004, 0698991, 3008768, 1620673 ####[facility] [address] [place] [address] Potassium molar conc 3.5 mmol/L Normal 3.5-5.3 [facility] Comment on above: Performed By: #### 1 9839600, 8904510, 0682551, 1183494, 1564298, 4401741 ####[facility] [address] [place] [address] Sodium molar conc 136 mmol/L Normal 135-145 [facility] Comment on above: Performed By: #### 1 6242121, 5654016, 3071820, 0640480, 2444212, 7943648 ####[facility] [address] [place] [address] BhG Quanton 07-02-2018 HCG.beta subunit Qn m[IU]/mL Normal 1-3 [facility] Comment on above: Result Comment: GEST ATIONAL AGE HCG RANGE (mIU/mL) NON- <1-3 0.2-1 WEEKS 5-50 1-2 WEEKS 50-500 2-3 WEEKS 100-5,000 3-4 WEEKS 500-10,000 4-5 WEEKS 1,000-50,000 5-6 WEEKS 10,000-100,000 6-8 WEEKS 15,000-200,000 8-12 WEEKS 10,000-100,000 Performed By: #### 2 455991 ####[address] [place] [address] CBC w/ Auto Diffon Erythrocyte distribution width Auto Ratio (RBC) 15.6 % High 10.9-14.2 [facility] Comment on above: Performed By: #### 1 7513230, 2812727, 9308934, 7125610, 9505981, 6751451 ####[place] [address] Hematocrit Auto Volume Fraction (Bld) 37.7 % Normal 34.0-46.0 [facility] Comment on above: Performed By: #### 1 2111304, 2476195, 7202680, 4713322, 7472583, 0865961 ####[place] [address] Hemoglobin mass conc (Bld) 12.5 g/dL Normal 12.0-16.0 [facility] Comment on above: Performed By: #### 1 2360928, 0752801, 9566984, 2174451, 7879092, 0664541 ####[id number] MCH Auto Entitic mass (RBC) 26.9 pg Low 27.0-34.0 [facility] Comment on above: Performed By: #### 1 8670457, 3654483, 3823356, 9218212, 3935825, 7605235 ####[address] [address] MCHC Auto mass conc (RBC) 33.1 g/dL Normal 31.4-39.3 [facility] Comment on above: Performed By: #### 1 3802118, 9132258, 6137159, 2995854, 6906792, 7532059 ####[facility] [address] [place] [address] MCV Auto Entitic volume (RBC) 81.4 fL Normal 80.0-100.0 [facility] Comment on above: Performed By: #### 1 5980733, 9329216, 2254286, 5498493, 6941669, 8060707 ####[address] [place] [address] Platelet mean volume Auto Entitic volume (Bld) 8.6 fL Normal 6.4-10.8 [facility] Comment on above: Performed By: #### 1 9569079, 6664804, 6408123, 1604902, 9549828, 8922855 ####[address] [place] [address] Platelets Auto #/vol (Bld) 348.0 E9/L Normal 150.0-500.0 [facility] Comment on above: Performed By: #### 1 4959294, 8034908, 4112386, 5750516, 3098808, 9417650 ####[address] [place] [address] RBC Auto #/vol (Bld) 4.6 E12/L Normal 4.3-5.9 [facility] Comment on above: Performed By: #### 1 2433141, 6422710, 2740386, 7379968, 9099960, 1631707 ####[address] [address] WBC corrected for nucl RBC Auto #/vol (Bld) 8.0 E9/L Normal 4.0-11.0 [facility] Comment on above: Performed By: #### 1 8302220, 0739632, 5704730, 5892026, 5689252, 1778528 ####[address] [place] [address] Discharge Instructionson Discharge Instructions Discharge insturctions compelte, RR equal and non labored with no distress noted. Nurse educated to make appt with Dr. Ellsworth and return with any worsneing symptoms. pt verbalized understanding. Normal [facility] Comment on above: Result Comment: Elec tronically Signed By: Shivani VALADEZ, Figueroa Burr\.kayleen\Date and Time Signed: 07/02/18 16:13 EST ED Clinical Summaryon 2017 ED Clinical Summary (Inserted Image. Elissa ble to display) [address] [address] ED Clinical SummaryPerson Information Name: FRANKIE GRIGGS/Candis Age: 32 Years : 1985 12:00 AM Sex: Female Language:Ukrainian PCP: Demetrius KU DO Marital Status: Visit Id: Visit Reason:Vaginal bleeding - < [...] PM 07/02/2018 4:14 PM 07/02/2018 4:14 PM ADDRESS:[address] [place] [id number] PHYS DOC NOTES: MEDICAL INFORMATION: Prescriptions Given:Prescription Display acetaminophen-hydrocodon e ([place] 325 mg-5 mg oral tablet) 1 tab(s), Oral, q6hr, 8 tab(s), Refill(s) 0, [facility] 1985 ondansetron (Zofran ODT 4 mg Tab-Dis) 4 mg = 1 tab(s), Oral, q6hr, PRN Nausea, # 4 tab(s), Refills(s) 0, [facility] PATIENT EDUCATION INFORMATION: Instructions:Miscarriage Follow up:With: Address: When: Baltazar Sifuentes [address], [facility] [address], [place] [id number] Business (1) Within 2 to 3 days Comments: Return to ED if symptoms worsen DIAGNOSIS:1:Miscarriage; 2:Vaginal bleeding Normal [facility] ED Note-Physicianon 07-02-20 ED Note-Physician Basic Information Ti me Seen: Kenzie Akers DO 07/02/2018 14:05Chief Complaint Yest morning bleeding with [...] bowel sounds, no guarding/rebound tenderness/rigidity : Nurse Marti present during exam, scant blood in the [...] with likely miscarriage. Recommend follow up with Radar Operator. Blood type is O+. Pt with three previous miscarriages and aware of things that she would need to return to the ED for. All questions answered.Assessment/Plan 1. Miscarriage Ordered: acetaminophen-hydrocodon e, 1 tab(s), Oral, q6hr, 8 tab(s), Refill(s) 0, [facility] 1984 2. Vaginal bleeding Ordered: acetaminophen-hydrocodon e, 1 tab(s), Oral, q6hr, 8 tab(s), Refill(s) 0, [facility] Orders: acetaminophen-hydrocodon e, 1 tab(s), Tab, Oral, q4hr PRN Pain for 5 day(s), Stop date 07/07/18 15:59:00 EST, STAT, Start date 07/02/18 16:00:00 EST ondansetron, 4 mg = 1 tab(s), Oral, q6hr, PRN Nausea, # 4 tab(s), Refills(s) 0, Pharmacy: [facility] 1984 Automated Diff Basic Metabolic Panel Beta hCG Quantitative CBC w/ Auto Diff Cervical Culture eGFR Hepatic Function Panel Lipase Level Pelvic Exam Setup UA With Cult Reflex US 1st Trimester US TransvaginalMedications Administered Given [place] 5/325 Tab, 1 tab(s), OralDisposition Plan Patient Discharge Condition Stable Discharge Disposition Home Discharge Prescription List Prescriptions [place] 325 mg-5 mg oral tablet, 1 tab(s), Oral, q6hr Zofran ODT 4 mg Tab-Dis, 4 mg= 1 tab(s), Oral, q6hr, PRN Follow-up With When Contact Information Baltazar Ellsworth Within 2 to 3 days [address], [address] [place] [address]- Business (1) Additional Instructions: Return to ED if symptoms worsen Patient Education MiscarriageProblem List/Past Medical History Ongoing No qualifying data Historical MiscarriageMedications Inpatient [place] 5/325 Tab, 1 tab(s), Oral, q4hr, PRN Home [place] 325 mg-5 mg oral tablet, 1 tab(s), [...] Lymph Auto: 32 % (07/02/18 14:38:00 EST) [place] Auto: 6.5 % (07/02/18 14:38:00 EST) Eos Auto: 2.4 % (07/02/18 14:38:00 EST) Basophil Auto: 0.9 % (07/02/18 14:38:00 EST) Neutro Absolute: 4.7 E9/L (07/02/18 14:38:00 EST) Lymph Absolute: 2.6 E9/L (07/02/18 14:38:00 EST) [place] Absolute: 0.5 E9/L (07/02/18 14:38:00 EST) Eos [...] sonogram report. Signed By: Melony Barnes MD [facility] Comment on above: Result Comment: Elec tronically Signed By: Kenzie Akers DO\.br\Date and Time Signed: 07/02/18 16:09 EST ED Patient Education Noteon 07-02-2018 ED Patient Education Note [facility] miscarriage is the sudden loss of an [...] approved by your caregiver. ? Only take xouu-gkl-hvolevh or prescription medicines for pain or discomfort [...] 11/15/2013 Document Reviewed: 09/08/2012ExitCare? Patient Information ?2015 [employer]. This information is not intended to replace advice given to you by your health care provider. Make sure you discuss any questions you have with your health care provider.Return if you have any problems or concerns. Call your regular Radar Operator or the one provided for a follow up appointment. Normal [facility] ED Patient Summaryon 018 ED Patient Summary (Inserted Image. Elissa ble to display) [address] [address] Patient Discharge Instructions Person Information Name: FRANKIE GRIGGS Age: 32 Years Date: 07/02/2018 2:01 PMDischarge Diagnosis: 1:Miscarriage; 2:Vaginal bleeding Primary Care Physician: Demetrius KU DO Provider InformationPrimary Provider: Rebecca Akers DO Bulb Weeder:None The exam and treatment you received in the Emergency Department were for an urgent problem and are not intended as complete care. It is important that you follow up with a doctor, nurse practitioner, or physician?s carpenter assistant installer for ongoing care. If your symptoms become worse or you do not improve as expected and you are unable to reach your usual health care provider, you should return to the Emergency Department. We are available 24 hours a day. FRANKIE GRIGGS has been given the following list of patient education materials, prescriptions and follow-up instructions: Follow-up Instructions:With: Address: When: Baltazar Ellsworth [address] [place] [address] Business (1) Within 2 to 3 days [...] opioids can be used to help relieve dkradptj-xp-ljlbit pain and are often prescribed following a [...] be struggling with addiction, tell your health critical care unit nurse and ask for guidance or call [facility]?S National Helpline at 2-457-477-BLPX. g Source: [place] Department of Health and Human Services/Center for Disease Control & Prevention [facility] Medications Given:Medication Dose Route acetaminophen-hydrocodon e 1.00 tab(s) Oral Medication Information:[facility] 1985, [address] [place], [place] [id number], [phone]-hydroc odone ([place] 325 mg-5 mg oral tablet) 1 Tabs By Mouth every 6 hours. Refills: 0.ondansetron (Zofran ODT 4 mg Tab-Dis) 1 Tabs By Mouth every 6 hours as needed Nausea. Refills: 0.Comment: Pharmacy Information: Hallie [place] Th ank you for choosing [facility] Zahraa ent Education Materials: MiscarriageA miscarriage is [...] approved by your caregiver. ? Only take bfmy-omc-fbmsvov or prescription medicines for pain or discomfort [...] Revised: 11/15/2013 Document Reviewed: 09/08/2012ExitCare? Patient Information ?2014 [employer] [place]. This information is not intended to replace advice given to you by your health care provider. Make sure you discuss any questions you have with your health care provider.Return if you have any problems or concerns. Call your regular Radar Operator or the one provided for a follow up appointment. ANSON Garces MELANIE J , have received the following patient education materials/instructions and have verbalized understanding: Patient Education Materials: Miscarriage Follow-up Instructions: With: Address: When: Baltazar Sifuentes [address]ENECYND[address] KALPES[address], [facility] [address], [place] [phone] Business (1) Within 2 to 3 days Comments: Return to ED if symptoms worsen Prescriptions: [acetaminophen-hydrocodo ne ([place] 325 mg-5 mg oral tablet)] [ondansetron (Zofran ODT 4 mg Tab-Dis)] Patient Signature Date Clinician/Nurse Signature Date 07/02/18 16:14:02 Normal [facility] Hep Func Panelon 07-02-2018 Albumin mass conc 1.2 g/dL Normal 1.1-2.2 [facility] Comment on above: Performed By: #### 1 [id number], 7362360, 4070974, 7082909, 5313054, 2869787 ####[facility] [address] [place] [address] Albumin mass conc 3.7 g/dL Normal 3.3-5.0 [facility] Comment on above: Performed By: #### 1 [id number], 1125040, 8297508, 8799940, 3069412, 9606949 ####[facility] [address] [place] [address] ALP enzyme act/vol 69 Int._Unit/L Normal 21-98 [facility] Comment on above: Performed By: #### 1 [id number], 3782144, 7218179, 8780313, 3235003, 2083036 ####[facility] [address] [place] [address] ALT No additional P-5'-P enzyme act/vol 12 Int._Unit/L Normal 6-46 [facility] Comment on above: Performed By: #### 1 0485997, 4635876, 9912550, 0839524, 3005032, 6951737 ####[facility] [address] [place] [address] AST enzyme act/vol 15 Int._Unit/L Normal 5-43 [facility] Comment on above: Performed By: #### 1 2899404, 4689858, 8753039, 5215429, 2359088, 0002815 ####[facility] [address] [place] [address] Bilirubin mass conc 0.2 mg/dL Normal 0.0-1.1 [facility] Comment on above: Performed By: #### 1 6364964, 7475853, 2057922, 4562351, 1210413, 2793146 ####[facility] [address] [place] [address] Bilirubin.direct mass conc mg/dL Normal 0.1-0.4 [facility] Comment on above: Performed By: #### 1 2789287, 5614997, 5616467, 0065214, 8159774, 2926759 ####[facility] [address] [place] [address] Globulin Calculated mass conc (S) 3.2 g/dL Normal 1.4-4.0 [facility] Comment on above: Performed By: #### 1 9849727, 2167258, 3325928, 3784214, 2649049, 1474698 ####[facility] [address] [place] [address] Protein mass conc 6.9 g/dL Normal 6.0-7.8 [facility] Comment on above: Performed By: #### 1 7926861, 9733422, 4104490, 9549767, 4296782, 9637216 ####[facility] [address] [place] [address] Bilirubin.indirect [Mass or Moles/volume] in Serum or Plasma UT Abnormal 0.1-0.9 [facility] Comment on above: Result Comment: Resu lt verified by Discern Rule. Performed result UTC (Unable to Calculate) was sent as an Alpha code due the inability to calculate a valid numeric value. Performed By: #### 1 5477143, 2766653, 2481168, 4285243, 0446984, 2960193 ####[facility] [address] [place] [address] Lipase Levelon 07-02-2018 Lipase enzyme act/vol 22 unit/L Normal 13-58 [facility] Comment on above: Performed By: #### 1 7367104, 1971889, 3386441, 0020951, 0128072, 4730418 ####[facility] [address] [place] [address] UA With Cult Reflexon 2017 Bacteria LM Ql (Urine sed) TRACE Normal Trace [facility] Comment on above: Performed By: #### 1 [id number] ####[address] [address] Bilirubin Ql (U) Negative Normal Negative [facility] Comment on above: Performed By: #### 1 4320258 ####[address] [address] Clarity Nom (U) SL CLOUDY Abnormal Clear [facility] Comment on above: Performed By: #### 1 8161204 ####[facility] [address] [place] [address] Color Auto Nom (U) YELLOW Normal Yellow [facility] Comment on above: Performed By: #### 1 [id number] ####[facility] [address] [place] [address] Epithelial cells.squamous LM.HPF #/area (Urine sed) 3-4 Normal 0-2 [facility] Comment on above: Performed By: #### 1 3911151 ####[facility] [address] [place] [address] Glucose Test strip mass conc (U) Negative Normal Negative [facility] Comment on above: Performed By: #### 1 2906589 ####[address] [address] Hemoglobin Test strip Ql (U) 3+ Abnormal Negative [facility] Comment on above: Performed By: #### 1 3236977 ####[facility] [address] [place] [address] Ketones mass conc (U) Negative Normal Negative [facility] Comment on above: Performed By: #### 1 5596909 ####[facility] [address] [place] [address] [place].plasma/Lithi um.RBC mass ratio (Bld) >30 Abnormal 0-3 [facility] Comment on above: Performed By: #### 1 1870227 ####[facility] [address] [place] [address] Mucus LM Ql (Urine sed) 2+ Normal [facility] Comment on above: Performed By: #### 1 6719124 ####[address] [address] Nitrite Test strip Ql (U) Negative Normal Negative [facility] Comment on above: Performed By: #### 1 6323373 ####[address] [address] pH Test strip (U) 6.0 [pH] Invalid Interpretation Code 5.0-9.0 [facility] Comment on above: Performed By: #### 1 4828594 ####[facility] [address] [place] [address] Protein mass conc (U) Negative Normal Negative [facility] Comment on above: Performed By: #### 1 3349469 ####[address] [address] Specific gravity Relative Density (U) 1.025 Invalid Interpretation Code 1.005-1.030 [facility] Comment on above: Performed By: #### 1 9658664 ####[facility] [address] [place] [address] UA Spec Desc Random Urine Normal [facility] Comment on above: Performed By: #### 1 7877994 ####[facility] [address] [place] [address] Urobilinogen Test strip Qn (U) 0.2 {Laquita'U}/dL Normal 0.0-1.0 [facility] Comment on above: Performed By: #### 1 2089118 ####[facility] [address] [place] [address] WBC Auto Ql (U) Negative Normal Negative [facility] Comment on above: Performed By: #### 1 9991570 ####[facility] [address] [place] [address] WBC LM.HPF #/area (Urine sed) 0-5 Normal 0-5 [facility] Comment on above: Performed By: #### 1 5300011 ####[facility] [address] [place] [address] Yeast LM Ql (Urine sed) TRACE Normal [facility] Comment on above: Performed By: #### 1 4214221 ####[facility] [address] [place] [address] US 1st Trimesteron 07-02-2018 US 1st Trimester [...] MD Transcribed by: MELINDA Technologist: TITI Walters [facility] US Transvaginalon 07-02-2018 US Transvaginal Exam Date/Time:07/02/2018 15:54 ESTReason for Exam:Vaginal bleedingReportPlease refer to transabdominal pelvic sonogram report. FINAL REPORT Dictated: 07/02/2018 3:56 pm Melony Barnes MD Signed (Electronic Signature): 07/02/2018 3:56 pm Signed by: Melony Barnes MD Transcribed by: MELINDA Technologist: TITI Walters [facility] eGFRon 07-02-2018 GFR/1.73 sq M predicted among blacks MDRD vol rate/area (S/P/Bld) mL/min/{1.73_m2} Normal >=59 [facility] Comment on above: Order Comment: Order added by Discern Expert. Result Comment: eGFR is race adjusted. AA=. Performed By: #### 1 1239774, 5122879, 3114551, 5636654, 5970210, 3917214 ####[facility] [address] [place] [address] GFR/1.73 sq M predicted among non-blacks MDRD vol rate/area (S/P/Bld) mL/min/{1.73_m2} Normal >=59 [facility] Comment on above: Order Comment: Order added by Discern Expert. Result Comment: Bleach Supervisor eugenio kidney disease could be indicated at eGFR's of less than 60 mL/min/1.73m2. Kidney failure is indicated at less than 15 mL/min/1.73m2. Performed By: #### 1 6422293, 4411535, 6554388, 1027755, 4615446, 0962269 ####[facility] [address] [place] [address] Encounters Encounter Date Encounter Type Care Provider Facility Start: 11-26-2023 End: 11-27-2023 ambulatory Ortiz MOSES Facility:[facility] Start: 11-26-2023 End: 11-26-2023 Patient encounter procedure Ortiz MOSES [facility] Start: 11-24-2023 End: 11-24-2023 ambulatory ORTIZ MOSES Not Available Start: 05-13-2023 End: 05-13-2023 Emergency department patient visit Tomer Portillo Facility:[facility] Start: 05-23-2022 End: 05-23-2022 ambulatory BEAU EDIE Facility:[facility] Start: 07-10-2021 End: 07-10-2021 ambulatory BEAU EDIE Facility:[facility] Start: 07-02-2018 End: 07-02-2018 Emergency department patient visit Demetrius [id number] UNKNOWN ELMIRA Facility:[facility] Procedures Date Procedure Procedure Detail Performing Clinician Start: 07-13-2020 Cholecystectomy Ortiz IYER Immunizations Immunization Date Immunization Notes Care Provider Fa cility NEGATED: Highlighted row has not occurred!07-14-2020 influenza, seasonal, injectable Ortiz MOSES [facility] Payers Date Payer Category Payer Unknown [id number] 2.16.84 [id number] 1985 Unknown [id number] 2.16.84 [id number] 1986 Unknown [id number] 2.16.84 [id number] 1986 Unknown [id number] 2.16.84 [id number] 1986 Unknown [id number] 2.16.8 [id number] 1986 Unknown [id number] 2.16.8 [id number] 1959 Self-pay 1958 Unknown [id number] Social History Date Type Detail Facility Tobacco smoking status No Smoking Status Entered [facility] Sex Assigned At Female [facility] Clinical Note 12-07-2021 Note Date & Type Note Facility 07-10-2021 [...] authenticated by: JAMISON CAMARENA Date: 2021-07-10 13:10 [facility] Evaluation + Plan note Note Date & Type Note Facility Evaluation + Plan note No data available for this section [facility] Hospital Discharge instructions Note Date & Type Note Facility Hospital Discharge instructions No data available for this section [facility] Progress note Note Date & Type Note Facility Progress note No data available for this section [facility] Summary Purpose Family History No Family History Records FoundNo Family History Records FoundNo Family History Records Found No data available for this section No Family History Records Found Advance Directives No Advanced Directives Records FoundNo Advanced Directives Records FoundNo Advanced Directives Records FoundNo Advanced Directives Records Found Additional Source Comments INFORMATION SOURCE (unrecogn ized section and content) DATE CREATED AUTHOR 08/13/2018 [facility] DATE CREATED AUTHOR AUTHOR'S ORGANIZ ATION 05/27/2022 [facility] DATE CREATED AUTHOR AUTHOR'S ORGANIZ ATION 11/25/2023 [facility] DATE CREATED AUTHOR AUTHOR'S ORGANIZ ATION 11/28/2023 [facility] FOR RECORDS PERTAINING TO PATIENTS WHO ARE [...] BE BASED ON THE PRIMARY CLINICAL RECORDS. [facility] [employer] [facility]. provides no warranty or guarantee of the accuracy or completeness of information in this document.
[2023-12-30 15:01] LABS: HCG Quantitative <1 mIU/mL
== END 2023-12-30 13:43 | disposition home or self-care (01) ==
LOC: LAB 13:44
PROVIDERS: PCP Student in an Organized Health Care Education/Training Program; Visit Provider Obstetrics & Gynecology
DX: Z01.419 Encounter for gynecological examination (general) (routine) without abnormal findings (principal); N92.6 Irregular menstruation, unspecified
CPT/HCPCS: 36415; 84702; 87624; 88175

== ENCOUNTER 2023-12-30 21:46 | Outpatient (REF) | payer BC, SELFPAY ==
--- OUTSIDE RECORDS SUMMARY | 2023-12-30 21:54 | XMS_ITS | CCD ---
Author Organization [facility] Inform ion Partnership [facility] Care Team Providers Care Field Horticultural Specialty Grower Name Role Phone Demetrius [phone] UNKNOWN Unavailable Unavailable Kenzie Akers Unavailable Unavailable Kenzie Akers Unavailable Unavailable BEAU IRIZARRY Primary Care Unavailable [...] cramping, # 12 cap(s), Refills(s) 0, Pharmacy: [facility] 1985, 170, cm, 05/13/23 11:38:00 [...] Ordered Start: 07-14-2020 take 1 capsule by [facility] twice daily as needed for constipation Colace [...] Nausea/Vomiting, # 12 tab(s), Refills(s) 0, Pharmacy: [facility] 1986, 170, cm, 05/13/23 11:38:00 [...] Test Name Value Interpretation Reference Range Facility [facility] 11-26-2023 HCG.beta subunit Qn 622 m[IU]/mL High 1-3 [facility] Comment on above: Result Comment: 'F N ON < 1 - 3' ' 0.2 - 1 WEEK = 5 TO 50' ' 1 - 2 WEEKS = 50 - 500' ' 2 - 3 WEEKS = 100 - 5000' ' 3 - 4 WEEKS = 500 - 99419' ' 4 - 5 WEEKS = 1000 - 89496' ' 5 - 6 WEEKS = 30848 - 581695' ' 6 - 8 WEEKS = 25961 - 391334' ' 8 - 12 WEEKS = 34788 - 485019' Performed By: #### 2 127925, 56458706, 6671881, 8652101, 4725788, 1435654 #### [facility] [address] [place] [address] CHEMISTRYOrdered By: SYSTEM SYSTEM on 11-26-2023 HCG.beta [...] 3 - 4 WEEKS = 500 - 21209' ' 4 - 5 WEEKS = 1000 - 77454' ' 5 - 6 WEEKS = 76361 - 361168' ' 6 - 8 WEEKS = 04853 - ' ' 8 - 12 WEEKS = 41568 - 761808' Consent for Treatmenton 11-03 Consent for Treatment [id number] F Normal [facility] Physician Orderon 11-26-2023 Physician Order [id number] F Normal [facility] Physician Order [id number] F Normal [facility] Auto Diffon 05-13-2023 Basophils/100 WBC (Bld) 0.6 % Normal 0.0-2.0 [facility] Comment on above: Order Comment: Order Added by Discern Expert. Performed By: #### 2 293270, 71079881, 0137294, 3628967, 5198197, 4854995 #### [facility] [address] [place] [address] Basophils/Leukocytes Auto (Bld) [Pure # fraction] 0.0 E9/L Normal 0.0-0.2 [facility] Comment on above: Order Comment: Order Added by Discern Expert. Performed By: #### 2 620892, 66231947, 8664362, 8135749, 5440158, 0258327 #### [facility] [address] [place] [address] Eosinophils/100 WBC (Bld) 3.9 % Normal 0.0-8.0 [facility] Comment on above: Order Comment: Order Added by Discern Expert. Performed By: #### 2 333354, 88125871, 1496437, 5921192, 3187790, 5152624 #### [facility] [address] [place] [address] Eosinophils/Leukocyt es Auto (Bld) [Pure # fraction] 0.3 E9/L Normal 0.0-0.5 [facility] Comment on above: Order Comment: Order Added by Discern Expert. Performed By: #### 2 810312, 06042202, 2335901, 0399805, 6739142, 5994477 #### [facility] [address] [place] [address] Lymphocytes/100 WBC (Bld) 32.4 % Normal 14.0-50.0 [facility] Comment on above: Order Comment: Order Added by Discern Expert. Performed By: #### 2 833826, 26424266, 5427678, 1299029, 8780650, 3016848 #### [facility] [address] [place] [address] Lymphocytes/Leukocyt es Auto (Bld) [Pure # fraction] 2.6 E9/L Normal 1.0-4.0 [facility] Comment on above: Order Comment: Order Added by Discern Expert. Performed By: #### 2 065840, 33495797, 8301835, 2153818, 2046251, 5625781 #### [facility] [address] [place] [address]11 Monocytes/100 WBC (Bld) 6.7 % Normal 4.0-14.0 [facility] Comment on above: Order Comment: Order Added by Discern Expert. Performed By: #### 2 522593, 43667291, 5585008, 9377280, 8135143, 0736790 #### [facility] [address] [place] [address] Monocytes/Leukocytes Auto (Bld) [Pure # fraction] 0.5 E9/L Normal 0.2-1.0 [facility] Comment on above: Order Comment: Order Added by Discern Expert. Performed By: #### 2 402589, 96694583, 6807034, 7224254, 9637212, 3322049 #### [facility] [address] [place] [address] Neutrophils/100 WBC (Bld) 56.4 % Normal 36.0-75.0 [facility] Comment on above: Order Comment: Order Added by Discern Expert. Performed By: #### 2 713934, 81989667, 9523444, 6281462, 8844542, 5590929 #### [facility] [address] [place] [address] Neutrophils/Leukocyt es Auto (Bld) [Pure # fraction] 4.6 E9/L Normal 2.0-7.5 [facility] Comment on above: Order Comment: Order Added by Discern Expert. Performed By: #### 2 803610, 19244559, 0922353, 8508460, 8598541, 9660018 #### [facility] [address] [place] [address] BMPon 05-13-2023 Creatinine [Mass/Vol] 0.8 mg/dL Normal 0.5-1.3 [facility] Comment on above: Performed By: #### 2 647805, 12364493, 0407806, 9404313, 9245921, 1006080 #### [facility] [address] [place] [address] Urea nitrogen [Mass/Vol] 8 mg/dL Normal 5-21 [facility] Comment on above: Performed By: #### 2 206472, 00001129, 3447106, 9600538, 5378470, 1693434 #### [facility] [address] [place] [address] Urea nitrogen/Creatinine [Mass ratio] 10 No Units Normal 10-20 [facility] Comment on above: Performed By: #### 2 855893, 69295446, 5262903, 1496118, 5252024, 5831081 #### [facility] [address] [place] [address] Anion gap [Moles/Vol] 11 mmol/L Normal 6-16 [facility] Comment on above: Performed By: #### 2 586083, 39657370, 5709125, 6922279, 9184887, 9012973 #### [facility] [address] [place] [address] Calcium [Mass/Vol] 9.2 mg/dL Normal 8.9-11.1 [facility] Comment on above: Performed By: #### 2 457866, 93088605, 5974031, 2686742, 6483114, 3030805 #### [facility] [address] [place] [address] Chloride [Moles/Vol] 104 mmol/L Normal 101-111 [facility] Comment on above: Performed By: #### 2 609281, 91540868, 7928178, 3121711, 9229867, 5364886 #### [facility] [address] [place] [address] CO2 [Moles/Vol] 24 mmol/L Normal 21-31 [facility] Comment on above: Performed By: #### 2 334579, 45497251, 5454762, 4004510, 4797490, 5244907 #### [facility] [address] [place] [address] Glucose [Mass/Vol] 104 mg/dL Normal 55-199 [facility] Comment on above: Result Comment: If t his glucose result represents a fasting glucose, interpretation should refer to the following reference range: 55-99 mg/dL Performed By: #### 2 176950, 90911708, 7350747, 1332771, 1467378, 6801057 #### [facility] [address] [place] [address] Potassium [Moles/Vol] 3.8 mmol/L Normal 3.5-5.3 [facility] Comment on above: Performed By: #### 2 468345, 57852910, 8973086, 5219495, 8089205, 2053947 #### [facility] [address] [place] [address] Sodium [Moles/Vol] 135 mmol/L Normal 135-145 [facility] Comment on above: Performed By: #### 2 096821, 92760670, 8277680, 8726968, 8696140, 7195765 #### [facility] [address] [place] [address] CBC w/ Auto Diffon - 3 Erythrocyte distribution width (RBC) [Ratio] 17.4 % High 10.9-14.2 [facility] Comment on above: Performed By: #### 2 246566, 94178071, 8249275, 7229280, 5352917, 1196315 #### [facility] [address] [place] [address] Hematocrit (Bld) [Volume fraction] 38.2 % Normal 34.0-46.0 [facility] Comment on above: Performed By: #### 2 133838, 60292954, 4797084, 2086708, 2282204, 7030040 #### [facility] [address] [place] [address] Hemoglobin (Bld) [Mass/Vol] 12.4 g/dL Normal 12.0-16.0 [facility] Comment on above: Performed By: #### 2 491876, 46821546, 5287784, 9039236, 5706765, 7781944 #### [facility] [address] [place] [address] 56528 MCH (RBC) [Entitic mass] 26.2 pg Low 27.0-34.0 [facility] Comment on above: Performed By: #### 2 790912, 32969587, 1036698, 9004785, 3897178, 2296209 #### [facility] [address] [place] [address] 32428 MCHC (RBC) [Mass/Vol] 32.6 g/dL Normal 31.4-36.0 [facility] Comment on above: Performed By: #### 2 611318, 31260637, 7450999, 3838836, 4142937, 0412659 #### [facility] [address] [place] [address] MCV (RBC) [Entitic vol] 80.5 fL Normal 80.0-100.0 [facility] Comment on above: Performed By: #### 2 211381, 20317772, 5226462, 1475223, 6832200, 6107440 #### [facility] [address] [place] [address] Platelet mean volume (Bld) [Entitic vol] 8.2 fL Normal 6.4-10.8 [facility] Comment on above: Performed By: #### 2 730612, 50456709, 4774974, 4578502, 4246000, 0472477 #### [facility] [address] [place] [address] Platelets (Bld) [#/Vol] 353.0 E9/L Normal 150.0-500.0 [facility] Comment on above: Performed By: #### 2 818650, 96216911, 7713318, 5725659, 0986791, 2851163 #### [facility] [address] [place] [address] RBC (Bld) [#/Vol] 4.8 E12/L Normal 4.3-5.9 [facility] Comment on above: Performed By: #### 2 748048, 99035077, 9668210, 4644470, 2710318, 8240488 #### [facility] [address] [place] [address] WBC corrected for nucl RBC Auto (Bld) [#/Vol] 8.1 E9/L Normal 4.0-11.0 [facility] Comment on above: Performed By: #### 2 769157, 14424660, 8246253, 9160157, 1521373, 7859962 #### [facility] [address] [place] [address] Abdomen/Pelvis w/o Contra ston 05-13-2023 CT [...] Oral contrast amount in ml's: 0 Normal [facility] Consent for Treatmenton 05-04 Consent for Treatment [id number] F Normal [facility] Discharge Instructionson Discharge Instructions [id number] FF Normal [facility] ED Clinical Summaryon 2022 ED Clinical Summary (Inserted Image. Elissa ble to display) [place] [id number] ED Clinical Summary Person Information Name: FRANKIE GRIGGS [place] Age: 37 Years : 1985 Sex: Female Language: Slovenian PCP: NONE, XXXX Marital Status: Phone: [phone] Visit Id: Visit Reason: Diarrhea; Vomiting; Abdominal [...] 15:09:49 05/13/2023 15:09:49 05/13/2023 15:09:49 ADDRESS: [address] [place] [id number] [facility] DOC NOTES: MEDICAL INFORMATION: Prescriptions Given: New Medications [facility] 1985, [address] [facility] [place] [id number], [phone] dicyclomine (Bentyl 10 mg Cap) 1 Capsules [...] [address] [place], [place] [id number] Business (1) In 3 days 05/16/2023 Comments: [...] symptoms. DIAGNOSIS: Diarrhea; Nausea and vomiting Normal [facility] ED Note-Physicianon 05-13-20 ED Note-Physician Basic Information [...] cramping, # 12 cap(s), Refills(s) 0, Pharmacy: [facility] 1985, 170, cm, 05/13/23 11:38:00 [...] Nausea/Vomiting, # 12 tab(s), Refills(s) 0, Pharmacy: [facility] 1986, 170, cm, 05/13/23 11:38:00 [...] [address] [place] [address]- Business (1) Additional Instructions: Call the office of your primary care doctor to arrange for follow-up within the above-stated timeframe. Follow-up with your primary care doctor about this ED visit. You should review your labs, imaging, and diagnoses from this ED visit with your primary care (more content not included)... Normal [facility] Comment on above: Result Comment: Elec tronically [...] added (diluted fruit juice). ? Eat bland, pkqo-yt-sytbvd foods in small amounts as you are able. These foods include bananas, applesauce, rice, lean meats, toast, and crackers. ? Avoid fluids that contain a lot of sugar or caffeine, such as energy drinks, sports drinks, and soda. ? Avoid alcohol. ? Avoid spicy or fatty foods. General instructions ? Take bioi-tpm-yzqdkpi and prescription medicines only as told by your health care provider. ? Drink enough fluid to keep your urine pale yellow. ? Wash your hands often using soap and water for at least 20 seconds. If soap and water are not available, use hand flying instructor. ? Make sure that everyone in your [...] and drinking to prevent dehydration. ? Take bpdl-kaw-gzydwnc and prescription medicines only as told by [...] provider. Document Revised: 01/25/2022 Document Reviewed: 01/25/2022 View [employer] Patient Education ? 2022 [employer]. Infectious Disease Diarrhea, Adult Diarrhea is frequent [...] oral rehydration solution (ORS). This is an mwqp-lhp-dromhlv medicine that helps return your body to its normal balance of nutrients and (more content not included)... Normal [facility] ED Patient Summaryon 023 ED Patient Summary (Inserted Image. Elissa ble to display) [place] [id number] Patient Discharge Instructions Person Information Name: FRANKIE GRIGGS Age: 37 Years Arrival Date: 05/13/2023 11:30:59 Discharge Diagnosis: Diarrhea; Nausea and vomiting Primary Care Physician: NONE, XXXX Provider Information Primary Provider: Tomer Portillo DO Advanced Weatherseal Technician:None The exam and treatment you received in the Emergency Department were for an urgent problem and are not intended as complete care. It is important that you follow up with a doctor, nurse practitioner, or physician?s review assistant for ongoing care. If your symptoms become [...] [address] [place] [address] Business (1) In 3 days 05/16/2023 Comments: [...] opioids can be used to help relieve jmacugpc-tk-kwunzx pain and are often prescribed following a [...] Talk abo (more content not included)... Normal [facility] Hep Func Panelon 05-13-2023 Albumin [Mass/Vol] 3.8 g/dL Normal 3.3-5.0 [facility] Comment on above: Performed By: #### 2 314453, 46304648, 3081270, 1409007, 2855978, 6552685 #### [facility] [address] [place] [address] Albumin/Globulin (S) [Mass conc ratio] 1.1 Normal 1.1-2.2 [facility] Comment on above: Performed By: #### 2 392957, 67182019, 7844681, 6947615, 6959300, 0868767 #### [facility] [address] [place] [address] ALP [Catalytic activity/Vol] 77 Int._Unit/L Normal 21-98 [facility] Comment on above: Performed By: #### 2 965425, 04099367, 4663410, 4689227, 8523195, 7429482 #### [facility] [address] [place] [address] ALT No additional P-5'-P [Catalytic activity/Vol] 26 Int._Unit/L Normal 6-46 [facility] Comment on above: Performed By: #### 2 463951, 99908281, 7035138, 9260918, 7558812, 6602491 #### [facility] [address] [place] [address] AST [Catalytic activity/Vol] 25 Int._Unit/L Normal 5-43 [facility] Comment on above: Performed By: #### 2 046804, 17796588, 1771684, 5810638, 3197359, 5043743 #### [facility] [address] [place] [address] Bilirubin [Mass/Vol] 0.4 mg/dL Normal 0.0-1.1 [facility] Comment on above: Performed By: #### 2 138803, 78759934, 7794646, 2032107, 2418295, 8903877 #### [facility] [address] [place] [address] Bilirubin.direct [Mass/Vol] 0.1 mg/dL Normal 0.1-0.4 [facility] Comment on above: Performed By: #### 2 855088, 49731257, 5735528, 1805736, 6812655, 3426125 #### [facility] [address] [place] [address] Bilirubin.indirect [Mass or moles/Vol] 0.3 mg/dL Normal 0.1-0.9 [facility] Comment on above: Performed By: #### 2 110885, 00187608, 2185535, 9623987, 1643201, 9711759 #### [facility] [address] [place] [address] Globulin (S) [Mass/Vol] 3.6 g/dL Normal 1.4-4.0 [facility] Comment on above: Performed By: #### 2 008969, 53133424, 6287702, 1998242, 3129853, 2585353 #### [facility] [address] [place] [address] Protein [Mass/Vol] 7.4 g/dL Normal 6.0-7.8 [facility] Comment on above: Performed By: #### 2 203522, 72735864, 0225753, 1421505, 8410003, 8269833 #### [facility] [address] [place] [address] Lipase Levelon 05-13-2023 Lipase [Catalytic activity/Vol] 24 U/L Normal 13-58 [facility] Comment on above: Performed By: #### 2 478525, 83317021, 6918901, 7751445, 8519275, 6662008 #### [facility] [address] [place] [address] U BetaHcg Qualon 05-13-2023 HCG.beta subunit (U) [Moles/Vol] Negative Normal [facility] Comment on above: Performed By: #### 2 244610, 12590970, 1897373, 2344150, 2580683, 7311099 #### [facility] [address] [place] [address] UA With Cult Reflexon 2022 Bacteria LM Ql (Urine sed) TRACE Normal Trace [facility] Comment on above: Performed By: #### 1 5055079 #### [facility] [address] [place] [address] Bilirubin Ql (U) Negative Normal Negative [facility] Comment on above: Performed By: #### 1 7967861 #### [facility] [address] [place] [address] Clarity (U) CLEAR Normal Clear [facility] Comment on above: Performed By: #### 1 1183884 #### [facility] [address] [place] [address] Color (U) YELLOW Normal Yellow [facility] Comment on above: Performed By: #### 1 0580546 #### [facility] [address] [place] [address] Epithelial cells.squamous LM.HPF (Urine sed) [#/Area] 0-2 Normal 0-2 [facility] Comment on above: Performed By: #### 1 7409884 #### [facility] [address] [place] [address] Glucose Test strip (U) [Mass/Vol] Negative Normal Negative [facility] Comment on above: Performed By: #### 1 9659767 #### [facility] [address] [place] [address] Hemoglobin Ql (U) Negative Normal Negative [facility] Comment on above: Performed By: #### 1 5089241 #### [facility] [address] [place] [address] Ketones (U) [Mass/Vol] Negative Normal Negative [facility] Comment on above: Performed By: #### 1 8451886 #### [facility] [address] [place] [address] Mos[place].plasma/Lithi um.RBC (Bld) [Mass ratio] 0-3 Normal 0-3 [facility] Comment on above: Performed By: #### 1 5242900 #### [facility] [address] [place] [address] Mucus Ql (Urine sed) TRACE Normal [facility] Comment on above: Performed By: #### 1 6683816 #### [facility] [address] [place] [address] Nitrite Ql (U) Negative Normal Negative [facility] Comment on above: Performed By: #### 1 2793314 #### [facility] [address] [place] [address] pH (U) 7.5 [pH] Invalid Interpretation Code 5.0-9.0 [facility] Comment on above: Performed By: #### 1 5010792 #### [facility] [address] [place] [address] Protein (U) [Mass/Vol] Negative Normal Negative [facility] Comment on above: Performed By: #### 1 8387852 #### [facility] [address] [place] [address] Specific gravity (U) [Rel density] 1.015 Invalid Interpretation Code 1.005-1.030 [facility] Comment on above: Performed By: #### 1 7526671 #### [facility] [address] [place] [address] Type of Urine collection method Clean Catch Normal [facility] Comment on above: Performed By: #### 1 7385920 #### [facility] [address] [place] [address] Urobilinogen Qn (U) 0.2 {Laquita'U}/dL Normal 0.0-1.0 [facility] Comment on above: Performed By: #### 1 4024442 #### [facility] [address] [place] [address] WBC Auto Ql (U) Negative Normal Negative [facility] Comment on above: Performed By: #### 1 6731090 #### [facility] [address] [place] [address] WBC LM.HPF (Urine sed) [#/Area] 0-5 Normal 0-5 [facility] Comment on above: Performed By: #### 1 9045753 #### [facility] [address] [place] [address] eGFRon 05-13-2023 GFR/1.73 sq M.predicted among non-blacks MDRD (S/P/Bld) [Vol rate/Area] 98 mL/min/1.73 m2 Normal >=59 [facility] Comment on above: Order Comment: Order added by Discern Expert. Result Comment: Building Carpenter eugenio kidney disease could be indicated at eGFR's of less than 60 mL/min/1.73m2. Kidney failure is indicated at less than 15 mL/min/1.73m2. Performed By: #### 2 335419, 04309595, 8689886, 4093354, 9377671, 0436099 #### [facility] [address] [place] [address] CBC AUTO DIFFon 05-23-2022 BASO # 0.0 103/ul Normal 0.0-0.1 [facility] Comment on above: Performed By: #### C BC #### [facility] [address] [address] [address] Rebeca Kaplan Basophils/100 WBC (Bld) 0.6 % Normal 0.2-2.0 [facility] Comment on above: Performed By: #### C BC #### [facility] [address] [place] [address] Dr. Rebeca Kaplan EO # 0.1 103/ul Normal 0.0-0.7 [facility] Comment on above: Performed By: #### C BC #### [facility] [address] [place] [address] Dr. Rebeca Kaplan Eosinophils/100 WBC (Bld) 0.8 % Critically low 0.9-7.0 [facility] Comment on above: Performed By: #### C BC #### [facility] [address] [place] [address] Dr. Rebeca Kaplan Erythrocyte distribution width (RBC) [Ratio] 15.9 % Critically high 11.0-15.0 [facility] Comment on above: Performed By: #### C BC #### [facility] [address] [place] [address] Dr. Rebeca Kaplan Hematocrit (Bld) [Volume fraction] 38.1 % Normal 36.0-48.0 [facility] Comment on above: Performed By: #### C BC #### [facility] [address] [place] [address] Dr. Rebeca Kaplan Hemoglobin (Bld) [Mass/Vol] 11.9 g/dL Critically low 12.0-16.0 [facility] Comment on above: Performed By: #### C BC #### [facility] [address] [place] [address] Dr. Rebeca Kaplan IG # 0.02 10e3/ul Normal 0.00-0.03 [facility] Comment on above: Performed By: #### C BC #### [facility] [address] [place] [address] Dr. Rebeac Kaplan IG % 0.3 % Normal 0.0-0.5 [facility] Comment on above: Performed By: #### C BC #### [facility] [address] [place] [address] Dr. Rebeca Kaplan LYMPH # 2.4 103/ul Normal 1.2-3.8 [facility] Comment on above: Performed By: #### C BC #### [facility] [address] [place] [address] Dr. Rebeca Kaplan Lymphocytes/100 WBC (Bld) 33.2 % Normal 20.5-60.0 [facility] Comment on above: Performed By: #### C BC #### [facility] [address] [place] [address] Dr. Rebeca Kaplan MANUAL DIFF REQ NO Normal [facility] Comment on above: Performed By: #### C BC #### [facility] [address] [place] [address] Dr. Rebeca Kaplan MCH (RBC) [Entitic mass] 26.3 pg Critically low 26.7-34.0 [facility] Comment on above: Performed By: #### C BC #### [facility] [address] [place] [address] Dr. Rebeca Kaplan MCHC (RBC) [Mass/Vol] 31.2 g/dL Normal 29.9-35.2 [facility] Comment on above: Performed By: #### C BC #### [facility] [address] [place] [address] Dr. Rebeca Kaplan MCV (RBC) [Entitic vol] 84.3 fL Normal 81.0-99.0 [facility] Comment on above: Performed By: #### C BC #### [facility] [address] [place] [address] Dr. Rebeca Kaplan MONO # 0.4 103/ul Normal 0.3-0.8 [facility] Comment on above: Performed By: #### C BC #### [facility] [address] [place] [address] Dr. Rebeca Kaplan Monocytes/100 WBC (Bld) 5.4 % Normal 1.7-12.0 [facility] Comment on above: Performed By: #### C BC #### [facility] [address] [place] [address] Dr. Rebeca Kaplan NEUT # 4.3 103/ul Normal 1.4-6.5 [facility] Comment on above: Performed By: #### C BC #### [facility] [address] [place] [address] Dr. Rebeca Kaplan Neutrophils/100 WBC (Bld) 59.7 % Normal 43.0-75.0 [facility] Comment on above: Performed By: #### C BC #### [facility] [address] [place] [address] Dr. Rebeca Kaplan Platelet mean volume (Bld) [Entitic vol] 10.0 fL Normal 9.5-13.5 [facility] Comment on above: Performed By: #### C BC #### [facility] [address] [place] [address] Dr. Rebeca Kaplan PLT 356 103/ul Normal 150-450 [facility] Comment on above: Performed By: #### C BC #### [facility] [address] [place] [address] Dr. Rebeca Kaplan RBC 4.52 106/ul Normal 4.20-5.40 [facility] Comment on above: Performed By: #### C BC #### [facility] [address] [place] [address] Dr. Rebeca Kaplan WBC 7.2 103/ul Normal 4.0-11.0 [facility] Comment on above: Performed By: #### C BC #### [facility] [address] [place] [address] Dr. Rebeca Kaplan ER URINE PROFILEon 2 Bilirubin Ql (U) Negative Normal NEGATIVE [facility] Comment on above: Performed By: #### U MICRO, ERUR #### [facility] [address] [place] [address] Dr. Rebeca Kaplan Clarity (U) CLEAR Normal CLEAR [facility] Comment on above: Performed By: #### U MICRO, ERUR #### [facility] [address] [address] [address] Rebeca Kaplan Color (U) LT. YELLOW Normal YELLOW [facility] Comment on above: Performed By: #### U MICRO, ERUR #### [facility] [address] [address] [address] Rebeca Kaplan ERUAHD A micrscopic examina tion will be performed if indicated. Normal [facility] Comment on above: Performed By: #### U MICRO, ERUR #### [facility] [address] [place] [address] Dr. Rebeca Kaplan Glucose Ql (U) Negative Normal NEGATIVE [facility] Comment on above: Performed By: #### U MICRO, ERUR #### [facility] [address] [place] [address] Dr. Rebeca Kaplan Hemoglobin Ql (U) SMALL Abnormal NEGATIVE [facility] Comment on above: Performed By: #### U MICRO, ERUR #### [facility] [address] [place] [address] Dr. Rebeca Kaplan Ketones Ql (U) Negative Normal NEGATIVE [facility] Comment on above: Performed By: #### U MICRO, ERUR #### [facility] [address] [address] [address] Rebeca Kaplan LEUKOCYTES TRACE Abnormal NEGATIVE [facility] Comment on above: Performed By: #### U MICRO, ERUR #### [facility] [address] [place] [address] Dr. Rebeca Kaplan Nitrite Ql (U) Negative Normal NEGATIVE [facility] Comment on above: Performed By: #### U MICRO, ERUR #### [facility] [address] [place] [address] Dr. Rebeca Kaplan pH (U) 6.0 [pH] Normal 5-9 [facility] Comment on above: Performed By: #### U MICRO, ERUR #### [facility] [address] [place] [address] Dr. Rebeca Kaplan SPEC GRAVITY 1.010 Normal 1.005-<=1.02 5 [facility] Comment on above: Performed By: #### U MICRO, ERUR #### [facility] [address] [place] [address] Dr. Rebeca Kaplan UA PROTEIN Negative Normal NEGATIVE/ TRACE [facility] Comment on above: Performed By: #### U MICRO, ERUR #### [facility] [address] [address] [address] Rebeca Kaplan UR MICRO IND INDICATED Normal [facility] Comment on above: Performed By: #### U MICRO, ERUR #### [facility] [address] [place] [address] Dr. Rebeca Kaplan Urobilinogen Qn (U) 0.2 {Laquita'U}/dL Normal 0.2 - 1. 0 [facility] Comment on above: Performed By: #### U MICRO, ERUR #### [facility] [address] [place] [address] Dr. Rebeca Kaplan PREG HCG QUALon 05-23-2022 , QUAL Negative Normal NEGATIVE [facility] Comment on above: Performed By: #### P REG #### [facility] [address] [place] [address] Dr. Rebeca Kaplan PROF CHEM 8 (BAS METB)on Anion gap [Moles/Vol] 14.2 mmol/L Normal [facility] Comment on above: Performed By: #### B MP #### [facility] [address] [place] [address] Dr. Rebeca Kaplan Calcium [Mass/Vol] 9.0 mg/dL Normal 8.5-10.1 [facility] Comment on above: Performed By: #### B MP #### [facility] [address] [place] [address] Dr. Rebeca Kaplan Chloride [Moles/Vol] 103 mmol/L Normal 98-107 [facility] Comment on above: Performed By: #### B MP #### [facility] [address] [address] [address] Rebeca Kaplan CO2 [Moles/Vol] 26.5 mmol/L Normal 21.0-32.0 [facility] Comment on above: Performed By: #### B MP #### [facility] [address] [address] [address] Rebeca Kaplan Creatinine [Mass/Vol] 0.78 mg/dL Normal 0.55-1.02 [facility] Comment on above: Performed By: #### B MP #### [facility] [address] [address] [address] Rebeac Kaplan EGFR-AF [place] CITIZEN >60 Normal >=60 [facility] Comment on above: Performed By: #### B MP #### [facility] [address] [address] [address] Rebeca Kaplan EGFR-NON AF [place] CITIZEN >60 Normal >=60 [facility] Comment on above: Performed By: #### B MP #### [facility] [address] [address] [address] Rebeca Kaplan Glucose [Mass/Vol] 112 mg/dL Critically high 74-106 [facility] Comment on above: Performed By: #### B MP #### [facility] [address] [address] [address] Rebeca Kaplan Potassium [Moles/Vol] 3.7 mmol/L Normal 3.5-5.1 [facility] Comment on above: Performed By: #### B MP #### [facility] [address] [address] [address] Rebeca Kaplan Sodium [Moles/Vol] 140 mmol/L Normal 136-145 [facility] Comment on above: Performed By: #### B MP #### [facility] [address] [address] [address] Rebeca Kaplan Urea nitrogen [Mass/Vol] 11.0 mg/dL Normal 7.0-18.0 [facility] Comment on above: Performed By: #### B MP #### [facility] [address] [place] [address] Dr. Rebeca Kaplan Urea nitrogen/Creatinine [Mass ratio] 14.1 mg/mg Normal [facility] Comment on above: Performed By: #### B MP #### [facility] [address] [place] [address] Dr. Rebeca Kaplan URINE MICROSCOPIC ONLYon BACTERIA TRACE Abnormal NONE SEEN [facility] Comment on above: Performed By: #### U MICRO, ERUR #### [facility] [address] [place] [address] Dr. Rebeca Kaplan Bacteria identified Cx Nom (U) NOT INDICATED Normal [facility] Comment on above: Performed By: #### U MICRO, ERUR #### [facility] [address] [place] [address] Dr. Rebeca Kaplan CAST NONE SEEN Normal NONE SEEN [facility] Comment on above: Performed By: #### U MICRO, ERUR #### [facility] [address] [place] [address] Dr. Rebeca Kaplan Crystals LM Nom (Urine sed) NONE SEEN Normal NONE SEEN [facility] Comment on above: Performed By: #### U MICRO, ERUR #### [facility] [address] [place] [address] Dr. Rebeca Kaplan Epithelial cells LM Ql (Urine sed) FEW Abnormal NONE SEEN /RARE [facility] Comment on above: Performed By: #### U MICRO, ERUR #### [facility] [address] [place] [address] Dr. Rebeca Kaplan MUCOUS NONE SEEN Normal NONE SEEN [facility] Comment on above: Performed By: #### U MICRO, ERUR #### [facility] [address] [place] [address] Dr. Rebeca Kaplan RBC 0-2 Normal 0-2 [facility] Comment on above: Performed By: #### U MICRO, ERUR #### [facility] [address] [place] [address] Dr. Rebeca Kaplan WBC 0-2 Abnormal NONE SEEN [facility] Comment on above: Performed By: #### U MICRO, ERUR #### [facility] [address] [place], [place] [address] Dr. Rebeca Kaplan US PELVIS AND TRANSVAGon [...] by: TORRES CHOI Date: 2022-05-23 11:13 Normal [facility] C Cervicalon 07-04-2018 Protein mass conc MicrobiologyPROCEDUR [...] presentPerforming LocationsR1: This test was performed at: [facility], [address] [place] [address], [id number] , Normal [facility] Comment on above: Performed By: #### 1 [id number], [id number], 2883976, 1125675, 9065180, 4784461 ####[facility] [address] [place] [address] Coding Summary.on 07-03-2018 Coding Summary. CODING DATE: 018 FINAL [facility] STATUS: Home (Routine DC) PAYOR: Self [...] Revised Date Saved: 07/03/2018 03:48 pm Normal [facility] Auto Diffon 07-02-2018 Basophils Auto #/vol (Bld) 0.9 % Normal 0.0-2.0 [facility] Comment on above: Order Comment: Order Added by Discern Expert. Performed By: #### 1 [id number], 6483435, 7335064, 3363197, 1454080, 3975879 ####[facility] [address] [place] [address] Basophils/Leukocytes Auto Pure number fraction (Bld) 0.1 E9/L Normal 0.0-0.2 [facility] Comment on above: Order Comment: Order Added by Discern Expert. Performed By: #### 1 [id number], 2964865, 1909412, 2575558, 0955780, 3699214 ####[facility] [address] [place] [address] Eosinophils/100 WBC Auto (Bld) 2.4 % Normal 0.0-8.0 [facility] Comment on above: Order Comment: Order Added by Discern Expert. Performed By: #### 1 7609175, 9740437, 0087294, 3558364, 1655193, 6189171 ####[facility] [address] [place] [address] Eosinophils/Leukocyt es Auto Pure number fraction (Bld) 0.2 E9/L Normal 0.0-0.5 [facility] Comment on above: Order Comment: Order Added by Discern Expert. Performed By: #### 1 7687865, 9857366, 3992941, 9289010, 5402150, 4634409 ####[address] [place] [address] Lymphocytes/100 WBC Auto (Bld) 32.0 % Normal 14.0-50.0 [facility] Comment on above: Order Comment: Order Added by Discern Expert. Performed By: #### 1 9823566, 8680778, 0654693, 4921043, 9198383, 7595373 ####[address] [place] [address] Lymphocytes/Leukocyt es Auto Pure number fraction (Bld) 2.6 E9/L Normal 1.0-4.0 [facility] Comment on above: Order Comment: Order Added by Marianela Expert. Performed By: #### 1 5473890, 6523404, 3409685, 5009912, 1142497, 6511411 ####[address] [address] Monocytes/100 WBC Auto (Bld) 6.5 % Normal 4.0-14.0 [facility] Comment on above: Order Comment: Order Added by Marianela Expert. Performed By: #### 1 0386417, 1628262, 6145717, 8588826, 3288648, 8339227 ####[address] [address] Monocytes/Leukocytes Auto Pure number fraction (Bld) 0.5 E9/L Normal 0.2-1.0 [facility] Comment on above: Order Comment: Order Added by Discern Expert. Performed By: #### 1 5257135, 1485338, 8366661, 9674867, 1758444, 9560483 ####[address] [address] Neutrophils/100 WBC Auto (Bld) 58.2 % Normal 36.0-75.0 [facility] Comment on above: Order Comment: Order Added by Marianela Expert. Performed By: #### 1 0570089, 9130808, 7309920, 9526661, 8758156, 6956316 ####[facility] [address] [place] [address] Neutrophils/Leukocyt es Auto Pure number fraction (Bld) 4.7 E9/L Normal 2.0-7.5 [facility] Comment on above: Order Comment: Order Added by Discern Expert. Performed By: #### 1 9900341, 7709682, 5634224, 1930891, 8362886, 3467548 ####[facility] [address] [place] [address] BMPon 07-02-2018 Creatinine mass conc 0.7 mg/dL Normal 0.5-1.3 [facility] Comment on above: Performed By: #### 1 0821812, 4126156, 1930203, 3236313, 4283507, 5026988 ####[facility] [address] [place] [address] Urea nitrogen mass conc 16 mg/dL Normal 5-21 [facility] Comment on above: Performed By: #### 1 2539452, 0204988, 8854315, 9972504, 8892043, 8432232 ####[facility] [address] [place] [address] Urea nitrogen/Creatinine mass ratio 23 No Units High 10-20 [facility] Comment on above: Performed By: #### 1 6088330, 4070050, 5925679, 6908450, 8276999, 0017382 ####[facility] [address] [place] [address] Anion gap 3 molar conc 10 mmol/L Normal 6-16 [facility] Comment on above: Performed By: #### 1 3673314, 3500149, 0703435, 4764963, 6071400, 4878895 ####[facility] [address] [place] [address] Calcium mass conc 8.9 mg/dL Normal 8.9-11.1 [facility] Comment on above: Performed By: #### 1 8326847, 1932955, 7626255, 0367216, 9486885, 0153910 ####[facility] [address] [place] [address] Chloride molar conc 106 mmol/L Normal 101-111 [facility] Comment on above: Performed By: #### 1 0870391, 9645761, 0329549, 9305584, 5832896, 3477910 ####[facility] [address] [place] [address] CO2 molar conc 24 mmol/L Normal 21-31 [facility] Comment on above: Performed By: #### 1 9347345, 4416957, 7160921, 4477615, 9125783, 3553690 ####[facility] [address] [place] [address] Glucose mass conc 97 mg/dL Normal 55-199 [facility] Comment on above: Result Comment: If t his glucose result represents a fasting glucose, interpretation should refer to the following reference range: 55-99 mg/dL Performed By: #### 1 3102706, 8038216, 2571844, 7743187, 0462373, 9169368 ####[facility] [address] [place] [address] Potassium molar conc 3.5 mmol/L Normal 3.5-5.3 [facility] Comment on above: Performed By: #### 1 5248376, 2644044, 1490157, 4249804, 8772530, 1927376 ####[facility] [address] [place] [address] Sodium molar conc 136 mmol/L Normal 135-145 [facility] Comment on above: Performed By: #### 1 0862837, 8131171, 6860866, 3184667, 7036576, 9265593 ####[facility] [address] [facility] [place] [address] BhG Quanton 07-02-2018 HCG.beta subunit Qn m[IU]/mL Normal 1-3 [facility] Comment on above: Result Comment: GEST ATIONAL AGE HCG RANGE (mIU/mL) NON- <1-3 0.2-1 WEEKS 5-50 1-2 WEEKS 50-500 2-3 WEEKS 100-5,000 3-4 WEEKS 500-10,000 4-5 WEEKS 1,000-50,000 5-6 WEEKS 10,000-100,000 6-8 WEEKS 15,000-200,000 8-12 WEEKS 10,000-100,000 Performed By: #### 2 59[address]75 ####[address] [place] [address] CBC w/ Auto Diffon Erythrocyte distribution width Auto Ratio (RBC) 15.6 % High 10.9-14.2 [facility] Comment on above: Performed By: #### 1 3166506, 8578960, 7396858, 9073253, 4300648, 7524358 ####[place] [address] Hematocrit Auto Volume Fraction (Bld) 37.7 % Normal 34.0-46.0 [facility] Comment on above: Performed By: #### 1 6270510, 6500025, 4403540, 0261656, 2487231, 6696225 ####[place] [address] Hemoglobin mass conc (Bld) 12.5 g/dL Normal 12.0-16.0 [facility] Comment on above: Performed By: #### 1 1038789, 1872930, 7825864, 4366170, 3841273, 3295343 ####[address] MCH Auto Entitic mass (RBC) 26.9 pg Low 27.0-34.0 [facility] Comment on above: Performed By: #### 1 1274022, 1579626, 2650020, 6260174, 4127234, 0511510 ####[address] [address] MCHC Auto mass conc (RBC) 33.1 g/dL Normal 31.4-39.3 [facility] Comment on above: Performed By: #### 1 4476815, 9105456, 3334840, 3257446, 7773778, 2461432 ####[facility] [address] [place] [address] MCV Auto Entitic volume (RBC) 81.4 fL Normal 80.0-100.0 [facility] Comment on above: Performed By: #### 1 4730386, 3853278, 8543503, 9340678, 7043100, 6397454 ####[address] [place] [address] Platelet mean volume Auto Entitic volume (Bld) 8.6 fL Normal 6.4-10.8 [facility] Comment on above: Performed By: #### 1 7241149, 4801717, 5722928, 5356927, 3025951, 3329204 ####[address] [place] [address] Platelets Auto #/vol (Bld) 348.0 E9/L Normal 150.0-500.0 [facility] Comment on above: Performed By: #### 1 4636623, 1837573, 7582855, 9137299, 2064354, 7455589 ####[address] [place] [address] RBC Auto #/vol (Bld) 4.6 E12/L Normal 4.3-5.9 [facility] Comment on above: Performed By: #### 1 0000114, 4643185, 4326830, 6268987, 0435598, 6282078 ####[address] [address] WBC corrected for nucl RBC Auto #/vol (Bld) 8.0 E9/L Normal 4.0-11.0 [facility] Comment on above: Performed By: #### 1 0728192, 2262781, 4055796, 3473813, 3715070, 6139588 ####[address] [place] [address] Discharge Instructionson Discharge Instructions Discharge insturctions compelte, RR equal and non labored with no distress noted. Nurse educated to make appt with Dr. Ellsworth and return with any worsneing symptoms. pt verbalized understanding. Normal [facility] Comment on above: Result Comment: Elec tronically Signed By: Shivani VALADEZ, Figueroa Burr\.kayleen\Date and Time Signed: 07/02/18 16:13 EST ED Clinical Summaryon 2017 ED Clinical Summary (Inserted Image. Elissa ble to display) [address] [address] ED Clinical SummaryPerson Information Name: FRANKIE GRIGGS/Candis Age: 32 Years : 1985 12:00 AM Sex: Female Language:Slovenian PCP: Demetrius KU DO Marital Status: Visit [...] 07/02/2018 4:14 PM 07/02/2018 4:14 PM ADDRESS:[address] [place] [id number] PHYS DOC NOTES: MEDICAL INFORMATION: Prescriptions Given:Prescription Display acetaminophen-hydrocodon e ([place] 325 mg-5 mg oral tablet) 1 tab(s), Oral, q6hr, 8 tab(s), Refill(s) 0, [facility] 1985 ondansetron (Zofran ODT 4 mg Tab-Dis) 4 mg = 1 tab(s), Oral, q6hr, PRN Nausea, # 4 tab(s), Refills(s) 0, Pharmacy: [facility] PATIENT EDUCATION INFORMATION: Instructions:Miscarriage Follow up:With: Address: When: Baltazar Sifuentes [facility] [address], [facility] [address], [place] [id number] Business (1) Within 2 to 3 days Comments: Return to ED if symptoms worsen DIAGNOSIS:1:Miscarriage; 2:Vaginal bleeding Normal [facility] ED Note-Physicianon 07-02-20 ED Note-Physician Basic Information [...] with likely miscarriage. Recommend follow up with Collector. Blood type is O+. Pt with three previous miscarriages and aware of things that she would need to return to the ED for. All questions answered.Assessment/Plan 1. Miscarriage Ordered: acetaminophen-hydrocodon e, 1 tab(s), Oral, q6hr, 8 tab(s), Refill(s) 0, [facility] 1984 2. Vaginal bleeding Ordered: acetaminophen-hydrocodon e, 1 tab(s), Oral, q6hr, 8 tab(s), Refill(s) 0, [facility] 1984 Orders: acetaminophen-hydrocodon e, 1 tab(s), Tab, Oral, q4hr PRN Pain for 5 day(s), Stop date 07/07/18 15:59:00 EST, STAT, Start date 07/02/18 16:00:00 EST ondansetron, 4 mg = 1 tab(s), Oral, q6hr, PRN Nausea, # 4 tab(s), Refills(s) 0, Pharmacy: [facility] 1984 Automated Diff Basic Metabolic Panel Beta hCG Quantitative CBC w/ Auto Diff Cervical Culture eGFR Hepatic Function Panel Lipase Level Pelvic Exam Setup UA With Cult Reflex US 1st Trimester US TransvaginalMedications Administered Given [place]dale 5/325 Tab, 1 tab(s), OralDisposition Plan Patient Discharge Condition Stable Discharge Disposition Home Discharge Prescription List Prescriptions [place]dale 325 mg-5 mg oral tablet, 1 tab(s), Oral, q6hr Zofran ODT 4 mg Tab-Dis, 4 mg= 1 tab(s), Oral, q6hr, PRN Follow-up With When Contact Information Baltazar Ellsworth Within 2 to 3 days [address], [address] [place] [address]- Business (1) Additional Instructions: Return to ED if symptoms worsen Patient Education MiscarriageProblem List/Past Medical History Ongoing No qualifying data Historical MiscarriageMedications Inpatient [place]dale 5/325 Tab, 1 tab(s), Oral, q4hr, PRN Home [place] 325 mg-5 mg oral tablet, 1 tab(s), [...] Lymph Auto: 32 % (07/02/18 14:38:00 EST) Ciales Auto: 6.5 % (07/02/18 14:38:00 EST) Eos Auto: 2.4 % (07/02/18 14:38:00 EST) Basophil Auto: 0.9 % (07/02/18 14:38:00 EST) Neutro Absolute: 4.7 E9/L (07/02/18 14:38:00 EST) Lymph Absolute: 2.6 E9/L (07/02/18 14:38:00 EST) Ciales Absolute: 0.5 E9/L (07/02/18 14:38:00 EST) Eos [...] sonogram report. Signed By: Melony Barnes MD [facility] Comment on above: Result Comment: Elec tronically Signed By: Kenzie Akers DO\.br\Date and Time Signed: 07/02/18 16:09 EST ED Patient Education Noteon 07-02-2018 ED [facility] is the sudden loss of [...] approved by your caregiver. ? Only take lotn-olg-pscokew or prescription medicines for pain or discomfort [...] 11/15/2013 Document Reviewed: 09/08/2012ExitCare? Patient Information ?2015 [employer]. This information is not intended to replace advice given to you by your health care provider. Make sure you discuss any questions you have with your health care provider.Return if you have any problems or concerns. Call your regular Collector or the one provided for a follow up appointment. Normal [facility] ED Patient Summaryon 018 ED Patient Summary (Inserted Image. Elissa ble to display) [address] [address] Patient Discharge Instructions Person Information Name: FRANKIE GRIGGS Age: 32 Years Date: 07/02/2018 2:01 PMDischarge Diagnosis: 1:Miscarriage; 2:Vaginal bleeding Primary Care Physician: Demetrius KU DO Provider InformationPrimary Provider: Rebecca Akers DO [place] Technician:None The exam and treatment you received in the Emergency Department were for an urgent problem and are not intended as complete care. It is important that you follow up with a doctor, nurse practitioner, or physician?s review assistant for ongoing care. If your symptoms become worse or you do not improve as expected and you are unable to reach your usual health care provider, you should return to the Emergency Department. We are available 24 hours a day. FRANKIE GRIGGS has been given the following list of patient education materials, prescriptions and follow-up instructions: Follow-up Instructions:With: Address: When: Baltazar Ellsworth [address] [place] [address] Business (1) Within 2 to 3 [...] opioids can be used to help relieve ulkhrzyy-ml-jvnyua pain and are often prescribed following a [...] be struggling with addiction, tell your health health care / medical job titles and ask for guidance or call [facility]?S National Helpline at 9-414-167-OKWG. v Source: [place] Department of Health and Human Services/Center for Disease Control & Prevention [facility] Medications Given:Medication Dose Route acetaminophen-hydrocodon e 1.00 tab(s) Oral Medication Information:[facility] 1985, [address] [place], [place] [id number], [phone]-hydroc odone (Clarksdale 325 mg-5 mg oral tablet) 1 Tabs By Mouth every 6 hours. Refills: 0.ondansetron (Zofran ODT 4 mg Tab-Dis) 1 Tabs By Mouth every 6 hours as needed Nausea. Refills: 0.Comment: Pharmacy Information: Hallie [place] Th ank you for choosing [facility] Zahraa ent Education Materials: MiscarriageA miscarriage is [...] approved by your caregiver. ? Only take lqao-csg-jcykviz or prescription medicines for pain or discomfort [...] 11/15/2013 Document Reviewed: 09/08/2012ExitCare? Patient Information ?2014 [employer]. This information is not intended to replace advice given to you by your health care provider. Make sure you discuss any questions you have with your health care provider.Return if you have any problems or concerns. Call your regular Collector or the one provided for a follow up appointment. ANSON Garces MELANIE J , have received the following patient education materials/instructions and have verbalized understanding: Patient Education Materials: Miscarriage Follow-up Instructions: With: Address: When: Baltazar Sifuentes [address]YND[address], [facility] [address], [place] [phone] Business (1) Within 2 to 3 days Comments: Return to ED if symptoms worsen Prescriptions: [acetaminophen-hydrocodo ne (Clarksdale 325 mg-5 mg oral tablet)] [ondansetron (Zofran ODT 4 mg Tab-Dis)] Patient Signature Date Clinician/Nurse Signature Date 07/02/18 16:14:02 Normal [facility] Hep Func Panelon 07-02-2018 Albumin mass conc 1.2 g/dL Normal 1.1-2.2 [facility] Comment on above: Performed By: #### 1 [id number], 0353174, 3032698, 6843889, 6055633, 6032840 ####[facility] [address] [place] [address] Albumin mass conc 3.7 g/dL Normal 3.3-5.0 [facility] Comment on above: Performed By: #### 1 0125014, 1243081, 0321513, 9491210, 0798230, 7077196 ####[facility] [address] [place] [address] ALP enzyme act/vol 69 Int._Unit/L Normal 21-98 [facility] Comment on above: Performed By: #### 1 6362408, 2532034, 9746219, 8284491, 6112335, 3535598 ####[facility] [address] [place] [address] ALT No additional P-5'-P enzyme act/vol 12 Int._Unit/L Normal 6-46 [facility] Comment on above: Performed By: #### 1 3284392, 6978073, 9253597, 3549287, 2757389, 5544256 ####[facility] [address] [place] [address] AST enzyme act/vol 15 Int._Unit/L Normal 5-43 [facility] Comment on above: Performed By: #### 1 1855507, 0201621, 5496599, 2682478, 9287074, 9449409 ####[facility] [address] [place] [address] Bilirubin mass conc 0.2 mg/dL Normal 0.0-1.1 [facility] Comment on above: Performed By: #### 1 9757053, 4575195, 6177176, 1205533, 4412897, 5350316 ####[facility] [address] [place] [address] Bilirubin.direct mass conc mg/dL Normal 0.1-0.4 [facility] Comment on above: Performed By: #### 1 1668676, 1518709, 8553476, 3450199, 2322349, 7854119 ####[facility] [address] [place] [address] Globulin Calculated mass conc (S) 3.2 g/dL Normal 1.4-4.0 [facility] Comment on above: Performed By: #### 1 6446271, 4699217, 6309595, 4982128, 2659104, 4358905 ####[facility] [address] [place] [address] Protein mass conc 6.9 g/dL Normal 6.0-7.8 [facility] Comment on above: Performed By: #### 1 4751040, 5602848, 9669647, 5298467, 5725791, 0442182 ####[facility] [address] [place] [address] Bilirubin.indirect [Mass or Moles/volume] in Serum or Plasma UT Abnormal 0.1-0.9 [facility] Comment on above: Result Comment: Resu lt verified by Discern Rule. Performed result UTC (Unable to Calculate) was sent as an Alpha code due the inability to calculate a valid numeric value. Performed By: #### 1 8495050, 5084716, 4625022, 8941583, 0045914, 7634098 ####[facility] [address] [place] [address] Lipase Levelon 07-02-2018 Lipase enzyme act/vol 22 unit/L Normal 13-58 [facility] Comment on above: Performed By: #### 1 2444459, 9616254, 2173063, 5198931, 8312394, 4785035 ####[facility] [address] [place] [address] UA With Cult Reflexon 2017 Bacteria LM Ql (Urine sed) TRACE Normal Trace [facility] Comment on above: Performed By: #### 1 9571061 ####[address] [address] Bilirubin Ql (U) Negative Normal Negative [facility] Comment on above: Performed By: #### 1 9097363 ####[address] [address] Clarity Nom (U) SL CLOUDY Abnormal Clear [facility] Comment on above: Performed By: #### 1 9318464 ####[facility] [address] [place] [address] Color Auto Nom (U) YELLOW Normal Yellow [facility] Comment on above: Performed By: #### 1 6504775 ####[facility] [address] [place] [address] Epithelial cells.squamous LM.HPF #/area (Urine sed) 3-4 Normal 0-2 [facility] Comment on above: Performed By: #### 1 2699733 ####[facility] [address] [place] [address] Glucose Test strip mass conc (U) Negative Normal Negative [facility] Comment on above: Performed By: #### 1 3042318 ####[address] [address] Hemoglobin Test strip Ql (U) 3+ Abnormal Negative [facility] Comment on above: Performed By: #### 1 6039146 ####[facility] [address] [place] [address] Ketones mass conc (U) Negative Normal Negative [facility] Comment on above: Performed By: #### 1 6878565 ####[facility] [address] [place] [address] Mosheim.plasma/Lithi um.RBC mass ratio (Bld) >30 Abnormal 0-3 [facility] Comment on above: Performed By: #### 1 4681348 ####[facility] [address] [place] [address] Mucus LM Ql (Urine sed) 2+ Normal [facility] Comment on above: Performed By: #### 1 5226075 ####[address] [address] Nitrite Test strip Ql (U) Negative Normal Negative [facility] Comment on above: Performed By: #### 1 1345139 ####[address] [address] pH Test strip (U) 6.0 [pH] Invalid Interpretation Code 5.0-9.0 [facility] Comment on above: Performed By: #### 1 7742586 ####[facility] [address] [place] [address] Protein mass conc (U) Negative Normal Negative [facility] Comment on above: Performed By: #### 1 1562721 ####[address] [address] Specific gravity Relative Density (U) 1.025 Invalid Interpretation Code 1.005-1.030 [facility] Comment on above: Performed By: #### 1 8322640 ####[facility] [address] [place] [address] UA Spec Desc Random Urine Normal [facility] Comment on above: Performed By: #### 1 3826520 ####[facility] [address] [place] [address] Urobilinogen Test strip Qn (U) 0.2 {Laquita'U}/dL Normal 0.0-1.0 [facility] Comment on above: Performed By: #### 1 3400590 ####[facility] [address] [place] [address] WBC Auto Ql (U) Negative Normal Negative [facility] Comment on above: Performed By: #### 1 8059345 ####[facility] [address] [place] [address] WBC LM.HPF #/area (Urine sed) 0-5 Normal 0-5 [facility] Comment on above: Performed By: #### 1 2577938 ####[facility] [address] [place] [address] Yeast LM Ql (Urine sed) TRACE Normal [facility] Comment on above: Performed By: #### 1 8145372 ####[facility] [address] [place] [address] US 1st Trimesteron 07-02-2018 US 1st Trimester [...] MD Transcribed by: MELINDA Technologist: TITI Walters [facility] US Transvaginalon 07-02-2018 US Transvaginal Exam Date/Time:07/02/2018 15:54 ESTReason for Exam:Vaginal bleedingReportPlease refer to transabdominal pelvic sonogram report. FINAL REPORT Dictated: 07/02/2018 3:56 pm Melony Barnes MD Signed (Electronic Signature): 07/02/2018 3:56 pm Signed by: Melony Barnes MD Transcribed by: MELINDA Technologist: TITI Walters [facility] eGFRon 07-02-2018 GFR/1.73 sq M predicted among blacks MDRD vol rate/area (S/P/Bld) mL/min/{1.73_m2} Normal >=59 [facility] Comment on above: Order Comment: Order added by Discern Expert. Result Comment: eGFR is race adjusted. AA=. Performed By: #### 1 3589884, 3415698, 1925839, 0949899, 9503664, 6833518 ####[facility] [address] [place] [address] GFR/1.73 sq M predicted among non-blacks MDRD vol rate/area (S/P/Bld) mL/min/{1.73_m2} Normal >=59 [facility] Comment on above: Order Comment: Order added by Discern Expert. Result Comment: Building Carpenter eugenio kidney disease could be indicated at eGFR's of less than 60 mL/min/1.73m2. Kidney failure is indicated at less than 15 mL/min/1.73m2. Performed By: #### 1 0780353, 6250243, 1092214, 3217606, 0560486, 0085753 ####[facility] [address] [place] [address] Encounters Encounter Date Encounter Type Care Provider Facility Start: 11-26-2023 End: 11-27-2023 ambulatory Ortiz MOSES Facility:[facility] Start: 11-26-2023 End: 11-26-2023 Patient encounter procedure Ortiz MOSES [facility] Start: 11-24-2023 End: 11-24-2023 ambulatory ORTIZ MOSES Not Available Start: 05-13-2023 End: 05-13-2023 Emergency department patient visit Tomer Portillo Facility:[facility] Start: 05-23-2022 End: 05-23-2022 ambulatory BEAU EDIE Facility:[facility] Start: 07-10-2021 End: 07-10-2021 ambulatory BEAU EDIE Facility:[facility] Start: 07-02-2018 End: 07-02-2018 Emergency department patient visit Demetrius [id number] UNKNOWN ELMIRA Facility:[facility] Procedures Date Procedure Procedure Detail Performing Clinician Start: 07-13-2020 Cholecystectomy Ortiz IYER Immunizations Immunization Date Immunization Notes Care Provider Fa cility NEGATED: Highlighted row has not occurred!07-14-2020 influenza, seasonal, injectable Ortiz MOSES [facility] Payers Date Payer Category Payer Unknown [id number] 2.16.84 [id number] 1985 Unknown [id number] 2.16.84 [id number] 1985 Unknown [id number] 2.16.84 [id number] 1985 Unknown [id number] 2.16.84 [id number] 1985 Unknown [id number] 2.16.8 [id number] 1985 Unknown [id number] 2.16.8 [id number] 1958 Self-pay 1958 Unknown [id number] Social History Date Type Detail Facility Tobacco smoking status No Smoking Status Entered [facility] Sex Assigned At Female [facility] Clinical Note 12-07-2021 Note Date & [...] by: JAMISON CAMARENA Date: 2021-07-10 13:10 [facility] Evaluation + Plan note Note Date & Type Note Facility Evaluation + Plan note No data available for this section [facility] Hospital Discharge instructions Note Date & Type Note Facility Hospital Discharge instructions No data available for this section [facility] Progress note Note Date & Type Note Facility Progress note No data available for this section [facility] Summary Purpose Family History No Family History Records FoundNo Family History Records FoundNo Family History Records Found No data available for this section No Family History Records Found Advance Directives No Advanced Directives Records FoundNo Advanced Directives Records FoundNo Advanced Directives Records FoundNo Advanced Directives Records Found Additional Source Comments INFORMATION SOURCE (unrecogn ized section and content) DATE CREATED AUTHOR 08/13/2018 [facility] DATE CREATED AUTHOR AUTHOR'S ORGANIZ ATION 05/27/2022 [facility] DATE CREATED AUTHOR AUTHOR'S ORGANIZ ATION 11/25/2023 [facility] DATE CREATED AUTHOR AUTHOR'S ORGANIZ ATION 11/28/2023 [facility] FOR RECORDS PERTAINING TO PATIENTS WHO ARE [...] BE BASED ON THE PRIMARY CLINICAL RECORDS. [facility] [employer] [facility]. provides no warranty or guarantee of the accuracy or completeness of information in this document.
== END 2023-12-30 21:47 | disposition home or self-care (01) ==
LOC: LAB 21:46
PROVIDERS: PCP Student in an Organized Health Care Education/Training Program; Visit Provider Obstetrics & Gynecology
DX: Z01.419 Encounter for gynecological examination (general) (routine) without abnormal findings (principal)
CPT/HCPCS: 88175

== ENCOUNTER 2024-01-09 08:46 | Outpatient (OUT) | payer BC, SELFPAY ==
--- NOTE | 2024-01-09 07:26 | ECG_ITS ---
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
== END 2024-01-09 08:47 | disposition home or self-care (01) ==
LOC: PST 08:47
PROVIDERS: PCP Student in an Organized Health Care Education/Training Program; Visit Provider Obstetrics & Gynecology
DX: Z01.810 Encounter for preprocedural cardiovascular examination (principal); N92.0 Excessive and frequent menstruation with regular cycle; N93.9 Abnormal uterine and vaginal bleeding, unspecified; R10.2 Pelvic and perineal pain
CPT/HCPCS: 93005

== ENCOUNTER 2024-01-23 07:15 | Day surgery (SDC) | payer BC, SELFPAY ==
[2024-01-09 09:35] VITALS: BMI 50.1
[2024-01-09 09:40] VITALS: BP 185/103; PULSE 102; TEMP 36.6; O2SAT 99
[2024-01-23] VITALS (9 sets, daily range): BP systolic 143–171; BP diastolic 92–108; PULSE 83–114; TEMP 36.1–36.7; O2SAT 93–97; BMI 49.0
--- OUTSIDE RECORDS SUMMARY | 2024-01-23 07:18 | XMS_ITS ---
Patient Summarization (C-CDA 2.1 CCD) Created on: January 23, 2024 CHARISMA GRIGGS : 1985 Sex: Female Author Organization Sample organization Care Team Providers Care Wood Grinder Name Role Phone Demetrius [phone] UNKNOWN Unavailable Unavailable Kenzie Akers Unavailable Unavailable Kenzie Akers Unavailable Unavailable EDIE, BEAU Primary Care Unavailable MEREDITH MILLER Admitting Unavailable MEREDITH MILLER Attending Unavailable MEREDITH MILLER Consulting Unavailable TORRES CHOI Consulting Unavailable EDIE, BEAU Primary Care Unavailable MEREDITH MILLER Admitting Unavailable MEREDITH MILLER Attending Unavailable DR JAMISON CAMARENA V Consulting Unavailable MEREDITH MILLER Consulting Unavailable NONE, XXXX Primary Care Physician UnavailMD Yaakov Carrero Attending Provider [phone] ORTIZ ORO Attending Unavailable ORTIZ ORO Attending Unavailable Yaakov Madison Admitting Unavailable Yaakov Madison Attending Unavailable Ortiz ORO Admitting Unavailable Ortiz ORO Attending Unavailable Tomer Portillo Attending Unavailable Makayla Reza Attending Unavailable Makayla Reza Attending Unavailable Makayla Reza Attending Unavailable Rachele AGOSTO Attending Unavailable Encounters Encounter Date Encounter Type Care Provider Facility Start: 07-20-2024 ambulatory Makayla L Juaquin [facility] Start: 01-19-2024 End: 01-19-2024 ambulatory Makayla L Juaquin [facility] Start: 01-13-2024 End: 01-13-2024 ambulatory Makayla L Juaquin [facility] Start: 01-12-2024 End: 01-12-2024 ambulatory Rachele AGOSTO Facility:[facility] Start: 01-12-2024 End: 01-12-2024 Patient encounter procedure Rachele AGOSTO [facility] Start: 01-09-2024 ambulatory Ortiz PREETHI Facility:[facility] Start: 12-30-2023 End: 12-30-2023 ambulatory ORTIZ PREETHI Not Available Start: 12-11-2023 End: 12-11-2023 ambulatory Yaakov Madison [facility] Work Phone: Start: 12-11-2023 End: 12-11-2023 Departed Referred MD Yaakov Madison Work Phone: [facility] Start: 11-26-2023 End: 11-26-2023 ambulatory Ortiz R PREETHI [place] [place]: 11-26-2023 End: 11-26-2023 Patient encounter procedure Ortiz R PREETHI [facility] Start: 11-24-2023 End: 11-24-2023 ambulatory ORTIZ PREETHI Not Available Start: 05-13-2023 End: 05-13-2023 Emergency department patient visit Tomer Portillo [place] [place] Start: 05-23-2022 End: 05-23-2022 ambulatory BEAU IRIZARRY Facility:[facility] Start: 07-10-2021 End: 07-10-2021 ambulatory BEAU EDIE Facility:[facility] Start: 07-02-2018 End: 07-02-2018 Emergency department patient visit Demetrius [phone] UNKNOWN ELMIAR [place] [place] Immunizations Immunization Date Immunization Notes Care Provider Fa cility NEGATED: Highlighted row has not occurred!07-14-2020 influenza, seasonal, injectable Ortiz PREETHI [facility] Medications Current Medications Medication Drug Class(es) Dates Sig (Normalized) Sig (Original) dicyclomine hydrochloride 10 mg oral capsule (2 sources) Anticholinergic Start: 05-13-2023 take 1 capsule by mouth four times daily as needed Bentyl 10 mg Cap 10 mg = 1 cap(s), Oral, QID, PRN Other (see comment), For abdominal cramping, # 12 cap(s), Refills(s) 0, Pharmacy: [facility], 170, cm, 05/13/23 11:38:00 EDT, Height/Length Dosing, 152.9, kg, 05/13/23 11:38:00 EDT, Weight Dosing Start Date: 05/13/23 Status: Ordered docusate sodium 100 mg oral capsule (4 sources) Start: 07-14-2020 take 1 capsule by mouth twice daily as needed for constipation Colace 100 mg Cap 100 mg = 1 cap(s), Oral, BID, PRN for constipation, # 60 cap(s), Refills(s) 0 Start Date: 07/14/20 Status: Ordered Start: 07-14-2020 take 1 capsule by mo ut twice daily as needed for constipation Colace 50 mg oral capsule 50 mg = 1 cap(s), Oral, BID, PRN for constipation, # 60 cap(s), Refills(s) 0, 172.7, cm, 07/12/20 21:50:00 EST, Height/Length Dosing, 142, kg, 07/12/20 21:50:00 EST, Weight Dosing Start Date: 07/14/20 Status: Ordered oxyCODONE hydrochloride 5 mg oral capsule (2 sources) Opioid Agonist Start: 07-14-2020 take 1 capsule by mouth every six hours as needed for pain oxyCODONE 5 mg Cap 5 mg = 1 cap(s), Oral, q6hr, PRN for pain, # 10 cap(s), Refills(s) 0 Start Date: 07/14/20 Status: Ordered Zofran ODT 4 mg Tab-Dis (2 sources) Start: 05-13-2023 take 1 tablet by mouth every eight hours as needed for nausea Zofran ODT 4 mg Tab-Dis 4 mg = 1 tab(s), Oral, q8hr, PRN Nausea/Vomiting, # 12 tab(s), Refills(s) 0, Pharmacy: [facility], 170, cm, 05/13/23 11:38:00 EDT, Height/Length Dosing, 152.9, kg, 05/13/23 11:38:00 EDT, Weight Dosing Start Date: 05/13/23 Status: Ordered Payers Date Payer Category Payer Unknown [id number] 2.16.84 [id number] 1985 Unknown [id number] 2.16.84 [id number] 1985 Unknown [id number] 2.16.84 [id number] 1985 Unknown [id number] 2.16.84 [id number] 1985 Unknown [id number] 2.16.84 [id number] 1985 Unknown [id number] 2.16.8 [id number] 1985 Unknown [id number] 2.16.8 [id number] 1985 Unknown [id number] 2.16.8 [id number] 1985 Unknown [id number] 2.16.8 [id number] 1985 Unknown [id number] 2.16.8 [id number] 1985 Unknown [id number] 2.16.8 [id number] 1958 Self-pay 1958 Unknown [id number] Problems Active Problems Problem Classification Problem Date Documented Da te Episodic/Chronic Abdominal pain (4 sources) Left lower quadrant pain; Translations: [LEFT LOWER QUADRANT PAIN] Onset: 05-23-2022 Episodic Essential hypertension (4 sources) Hypertensive disorder 07-07-2019 Chronic Other nutritional; endocrine; and metabolic disorders (1 source) Obesity, unspecified; Translations: [OBESITY UNSPECIFIED] Onset: 05-24-2022 Chronic Other nutritional; endocrine; and metabolic disorders (1 source) Body mass index (BMI) 50.0-59.9, adult; Translations: [BODY MASS INDEX BMI 50.0-59.9 ADULT] Onset: 05-24-2022 Chronic Spontaneous (2 sources) Miscarriage 07-07-2017 Episodic Past or Other Problems [...] LIGAMENT LT ANKLE INIT] Onset: 07-12-2021 Episodic Procedures Date Procedure Procedure Detail Performing Clinician Start: 07-13-2020 Cholecystectomy Ortiz IYER Results Test Name Value Interpretation Reference Range Facility Ambulatory Visit Summaryon 0 01-19-2024 Ambulatory Visit Summary CHARISMA GRIGGS :1985 Visit Date:01/19/2024 Ambulatory Visit Instructions Your Diagnosis HTN (hypertension) BMI 45.0-49.9, adult Non-smoker Your Care Team Attending Physician - Makayla Gar Primary Care Physician - Makayla Gar This Is Your Medications List hydrochlorothiazide-losa rtan (hydrochlorothiazide-los lenny 12.5 mg-100 mg oral tablet) levothyroxine (levothyroxine 25 mcg (0.025 mg) Tab) Procedures Performed Surgery (12/11/2023), Cholecystectomy (07/13/2020). Discharge Vitals Heart Rate (Peripheral) 82 Respiratory Rate 18 Blood Pressure 152/98 Height 170.0 cm Height 67 in Weight 144.45 kg Weight 317.79 lb BMI 49.98 What to do next Scheduled Follow-Up Appointments Friday 8:20 AM EST With: Makayla Gar Where: [facility] [place] Normal [facility] Family Medicine Office/Clini c Noteon 01-19-2024 Family Medicine Office/Clinic Note HPI Staff Charisma is a 38 year old female presenting for 1 week follow up VILLA 01/13/24 started Losartan-HCTZ Patient is here for follow up on hypertension. How often are you checking your blood pressure? few times daily What are your average readings? 140's/80's-90's , pt brought in b/p log Pt states at first she did feel tingling in her hands for a day or so but that has went away. History of Present Illness pt presents today for BP follow up Review of Systems PHQ Score Initial Depression Screen Score: 0 SCORE Physical Exam Vitals & Measurements HR: 82(Peripheral) RR: 18 BP: 152/98 HT: 67 in HT: 170.0 cm WT: 144.45 kg WT: 317.79 lb BMI: 49.98 General: alert, no acute distress ENMT: oral mucosa moist, no pharyngeal erythema or exudate Cardiovascular: regular rate and rhythm, normal peripheral perfusion Respiratory: Lungs CTA, respirations non labored Extremities: no deformity, no trauma Neurological: oriented x 4, LOC appropriate for age, CN II-XII intact, motor strength equal & normal bilaterally, speech normal Assessment/Plan 1. HTN (hypertension) (I10: Essential (primary) hypertension) reviewed patient BP log from home. all BP's are at goal. Will continue current dose and will also at potassium since she is taking HCTZ. pt will continue to monitor BP's if they start trending up, surgical clearance letter was sent to Dr. Oro. she will contact this office. RTC 6 months. Ordered: potassium chloride, 10 mEq = 1 tab(s), Oral, BID, # 180 tab(s), Refills(s) 3, Pharmacy: [facility], 170, cm, 01/19/24 8:20:00 EDT, Height/Length Dosing, 144.4, kg, 01/19/24 8:20:00 EDT, Weight Dosing 2. BMI 45.0-49.9, adult (Z68.42: Body mass index [BMI] 45.0-49.9, adult) BMI education given Ordered: potassium chloride, 10 mEq = 1 tab(s), Oral, BID, # 180 tab(s), Refills(s) 3, Pharmacy: [facility], 170, cm, 01/19/24 8:20:00 EDT, Height/Length Dosing, 144.4, kg, 01/19/24 8:20:00 EDT, Weight Dosing 3. Non-smoker (Z78.9: Other specified health status) continue not smoking Ordered: potassium chloride, 10 mEq = 1 tab(s), Oral, BID, # 180 tab(s), Refills(s) 3, Pharmacy: [facility], 170, cm, 01/19/24 8:20:00 EDT, Height/Length Dosing, 144.4, kg, 01/19/24 8:20:00 EDT, Weight Dosing Follow-up No qualifying data available Problem List/Past Medical History Ongoing Anxiety HTN (hypertension) Hypothyroid PCOS (polycystic ovarian syndrome) PTSD (post-traumatic stress disorder) Historical HTN - Hypertension Miscarriage Procedure/Surgical History Surgery (12/11/2023), Cholecystectomy (07/13/2020). Medications hydrochlorothiazide-losa rtan 12.5 mg-100 mg oral tablet, 1 tab(s), Oral, Daily levothyroxine 25 mcg (0.025 mg) Tab, 25 mcg= 1 tab(s), Oral, Daily Potassium Chloride (Mdw-Rojf-Jsg 10) 10 mEq oral tablet, extended release, 10 mEq= 1 tab(s), Oral, BID, 3 refills Allergies No Known Allergies Social History Alcohol - Denies Alcohol Use, 09/21/2016 Substance Abuse Current, Marijuana, 1-2 times per month, 09/21/2016 Tobacco - Denies Tobacco Use, 09/21/2016 Never (less than 100 in lifetime) Tobacco Use:. Never Smokeless Tobacco Use:. Household tobacco concerns: No., 01/19/2024 Family History Diabetes mellitus type 2: Grandparent. Heart disease: Grandparent. Hypertension: Father and Grandparent. Immunizations Vaccine Date Status Comments influenza virus vaccine, inactivated - Not Given Patient Refuses Normal [facility] Comment on above: Result Comment: Elec tronically Signed By: Makayla Gar\.br\Date and Time Signed: 01/19/24 08:41 EDT Provider Letteron 01-19-2024 Provider Letter (Inserted Image. Elissa ble to display) [address] [place] [id number] January 19, 2024 CHARISMA GRIGGS [address] [place] [id number] : [address] Oro. The above patient has been evaluated at your request for preoperative clearance. After assessment of available pertinent labs and diagnostic tests, I feel this patient is medically optimized for surgery. Final discretion of whether the patient is cleared for surgery remains up to the surgeon/anesthesiologist . Thank you, RICH Joyce [facility] Ambulatory Visit Summaryon 0 01-13-2024 Ambulatory Visit Summary CHARISMA GRIGGS :1985 Visit Date:01/13/2024 Ambulatory Visit Instructions Your Diagnosis Hypothyroid HTN (hypertension) BMI 45.0-49.9, adult Non-smoker Marijuana smoker Your Care Team Attending Physician - Makayla Gar Primary Care Physician - Makayla Gar This Is Your Medications List levothyroxine (levothyroxine 25 mcg (0.025 mg) Tab) Procedures Performed Surgery (12/11/2023), Cholecystectomy (07/13/2020). Discharge Vitals Heart Rate (Peripheral) 78 Respiratory Rate 18 Blood Pressure 162/104 Height 170.4 cm Height 67 in Weight 144.25 kg Weight 317.35 lb BMI 49.68 What to do next Scheduled Follow-Up Appointments Friday 8:20 AM EDT With: Makayla Gar Where: [facility] [place] Normal [facility] Family Medicine Office/Clini c Noteon 01-13-2024 Family Medicine Office/Clinic Note HPI Staff Charisma is a 38 year old female presenting to establish care Establish Care: History: Any previous diagnosis: HTN, PCOS, hypothyroidism, PTSD, Anxiety History of seeing any specialist: When was your last doctors visit: Last provider: Dr Preethi Chou Any recent labs: TBH a lot within the last 3 months JOSR: 6 Health Maintenance UTD: Colonoscopy: no Mammogram: 12/2023, Had biopsy right breast benign has to do mammograms every 6 months Pelvic/Pap: 12/30/23 normal Acute: Current issues/complaints: Pt would like to get blood pressure under control. Pt does have a tubal ligation set for January 22 and will need clearance having down with Dr Oro at [facility]. Has had all pre surgical work up done Once blood pressure is controlled would like to start something for weight loss, pt has lost 40 pounds over the last year. History of Present Illness pt presents to establish care. would like to get BP under control Review of Systems PHQ Score Initial Depression Screen Score: 0 SCORE Physical Exam Vitals & Measurements HR: 78(Peripheral) RR: 18 BP: 162/104 SpO2: 97% HT: 67 in HT: 170.4 cm WT: 144.25 kg WT: 317.35 lb BMI: 49.68 General: alert, no acute distress ENMT: oral mucosa moist, no pharyngeal erythema or exudate Cardiovascular: regular rate and rhythm, normal peripheral perfusion Respiratory: Lungs CTA, respirations non labored Extremities: no deformity, no trauma Neurological: oriented x 4, LOC appropriate for age, CN II-XII intact, motor strength equal & normal bilaterally, speech normal Assessment/Plan 1. Hypothyroid (E03.9: Hypothyroidism, unspecified) recently diagnosed managed by Dr. Oro Ordered: hydrochlorothiazide-losa rtan, 1 tab(s), Oral, Daily, 30 tab(s), Refill(s) 0, [facility], 170.4, cm, 01/13/24 9:19:00 EDT, Height/Length Dosing, 144.2, kg, 01/13/24 9:19:00 EDT, Weight Dosing 2. HTN (hypertension) (I10: Essential (primary) hypertension) BP elevated. pt states it's been elevated since she was a teenager. she has been on meds in the past. but just stopped focusing on her health and stopped taking meds. will order hctz-losartan. pt to check BP at home and bring log back in on Friday. she is scheduled for tubal on January 22. will need surgical clearance. discussed it may take some time to get BP under control she understands she may have to reschedule surgery. RTC friday Ordered: hydrochlorothiazide-losa rtan, 1 tab(s), Oral, Daily, 30 tab(s), Refill(s) 0, [facility], 170.4, cm, 01/13/24 9:19:00 EDT, Height/Length Dosing, 144.2, kg, 01/13/24 9:19:00 EDT, Weight Dosing 3. BMI 45.0-49.9, adult (Z68.42: Body mass index [BMI] 45.0-49.9, adult) BMI education. pt has lost 40poiunds on her own. after getting her BP under control she would like to discuss weight managment Ordered: hydrochlorothiazide-losa rtan, 1 tab(s), Oral, Daily, 30 tab(s), Refill(s) 0, [facility], 170.4, cm, 01/13/24 9:19:00 EDT, Height/Length Dosing, 144.2, kg, 01/13/24 9:19:00 EDT, Weight Dosing 4. Non-smoker (Z78.9: Other specified health status) continue not smoking Ordered: hydrochlorothiazide-losa rtan, 1 tab(s), Oral, Daily, 30 tab(s), Refill(s) 0, [facility], 170.4, cm, 01/13/24 9:19:00 EDT, Height/Length Dosing, 144.2, kg, 01/13/24 9:19:00 EDT, Weight Dosing 5. Marijuana smoker (F12.90: Cannabis use, unspecified, uncomplicated) consider not using Ordered: hydrochlorothiazide-losa rtan, 1 tab(s), Oral, Daily, 30 tab(s), Refill(s) 0, [facility], 170.4, cm, 01/13/24 9:19:00 EDT, Height/Length Dosing, 144.2, kg, 01/13/24 9:19:00 EDT, Weight Dosing Follow-up No qualifying data available Problem List/Past Medical History Ongoing Anxiety HTN (hypertension) Hypothyroid PCOS (polycystic ovarian syndrome) PTSD (post-traumatic stress disorder) Historical HTN - Hypertension Miscarriage Procedure/Surgical History Surgery (12/11/2023), Cholecystectomy (07/13/2020). Medications hydrochlorothiazide-losa rtan 12.5 mg-100 mg oral tablet, 1 tab(s), Oral, Daily levothyroxine 25 mcg (0.025 mg) Tab, 25 mcg= 1 tab(s), Oral, Daily Allergies No Known Allergies Social History Alcohol - Denies Alcohol Use, 09/21/2016 Substance Abuse Current, Marijuana, 1-2 times per month, 09/21/2016 Tobacco - Denies Tobacco Use, 09/21/2016 Never (less than 100 in lifetime) Tobacco Use:. Never Smokeless Tobacco Use:. Household tobacco concerns: No., 01/13/2024 Family History Diabetes mellitus type 2: Grandparent. Heart disease: Grandparent. Hypertension: Father and Grandparent. Immunizations Vaccine Date Status Comments influenza virus vaccine, inactivated - Not Given Patient Refuses Normal [facility] Comment on above: Result Comment: Elec tronically Signed By: Makayla Gar\.br\Date and Time Signed: 01/13/24 09:34 EDT Lab Reportson 01-13-2024 Lab Reports [id number]#1.00TIFF [facility] Outside Mammographyon 2023 Outside Mammography [id number]#1.00TI FF [facility] Pathology Noteon 01-13-2024 Pathology Note [id number]#1.00TI FF [facility] RAD - Ultrasound Reporton RAD - Ultrasound Report [id number]#1.00TI FF [facility] Clipboard Summaryon 01-09-20 Clipboard Summary {[id number] -[id number] }XML Normal [facility] Clipboard Summary {[id number]-29 -[id number] }XML Normal [facility] Luan 12-11-2023 L Specimen: [id number] Received: 12/12/23-1353 Status: SOUT Req Num: [id number] Spec Type: Surgical Subm Dr: Yaakov Madison MD Tissues: A BREAST CORE NO CALCS (RT BREAST AT 9 O'CLOCK) Procedures: HE/4, Gross/Micro L4, AE1-AE3, BCL-2, BCL-6, CD10, CD20, CD3, CD5, Ki-67 Age/ Patient Sex Location Account Attending Physician AnsonCharisma Man 38/F [facility] [id number] Yaakov Madison MD SPEC NUM: [id number] RECD: 12/12/23 STATUS: MISBAH REQ NUM: [id number] TAYO: 12/11/[address] [facility] DR: Yaakov Madison MD ENTERED: 12/12/[address] [facility] [address]: [place],Lab SPEC TYPE: Surgical DEPT: TANIA SMITH ORDERED: HE/4, Gross/Micro L4, AE1-AE3, BCL-2, BCL-6, CD10, CD20, CD3, CD5, Ki-67 ORDERED: HE/4, Gross/Micro L4, AE1-AE3, BCL-2, BCL-6, CD10, CD20, CD3, CD5, Ki-67 Pathological Diagnosis Nodule, right breast, 9:00, core biopsy: Benign lymph node tissue. Diagnosis confirmed with pancytokeratin, CD3, CD20, Bcl-2, BCL6, CD10, CD5 and Ki-67 immunostain. Gross Description Received in formalin, labeled with the patient's name, date of and right breast 9:00 nodule are 5 milan fibrofatty tissue cores ranging from 1.5 to 0.9 cm in length by 0.2 to 0.3 cm in diameter. Additionally submitted in the specimen container is a 2.2 x 1.2 x 0.3 cm aggregate of fibrofatty tissue fragments. The specimen is submitted entirely in A1?A2. Time of collection: 12/11/2023 at 1503 Time in formalin: 12/11/2023 at 1509 Time at gross: 12/12/2023 at 1446 Clinical history: None given Specimen: [id number] Received: 12/12/23 Status: MISBAH Magallon Num: [id number] Spec Type: Surgical Subm Dr: Yaakov Madison MD Tissues: A BREAST CORE NO CALCS (RT BREAST AT 9 O'CLOCK) Procedures: HE/4, Gross/Micro L4, AE1-AE3, BCL-2, BCL-6, CD10, CD20, CD3, CD5, Ki-67 Patient: Charisma Griggs [id number] (Continued) Specimen: [id number] Received: 12/12/23 (Continued) Signed (signature on file) Harriet_ Teddy Castillo MD 12/16/23 1534 Specimen: [id number] Received: 12/12/23 Status: MISBAH Magallon Num: [id number] Spec Type: Surgical Subm Dr: Yaakov Madison MD Tissues: A BREAST CORE NO CALCS (RT BREAST AT 9 O'CLOCK) Procedures: HE/4, Gross/Micro L4, AE1-AE3, BCL-2, BCL-6, CD10, CD20, CD3, CD5, Ki-67 Patient: Charisma Griggs [id number] (Continued) Specimen: [id number] Received: 12/12/23 (Continued) CPT Codes 74240, 94549, 52066k3 Specimen: [id number] Received: 12/12/23-1781 Status: MISBAH Magallon Num: [id number] Spec Type: Surgical Subm Dr: Yaakov Madison MD Tissues: A BREAST CORE NO CALCS (RT BREAST AT 9 O'CLOCK) Procedures: HE/4, Gross/Micro L4, AE1-AE3, BCL-2, BCL-6, CD10, CD20, CD3, CD5, Ki-67 Patient: Charisma Griggs [id number] (Continued) Signed (signature on file) Teddy Castillo MD 12/16/23 1534 Normal [facility] QuantOrdered By: SYSTEM SYSTEM on 11-26-2023 HCG.beta subunit Qn 622 m[IU]/mL High 1-3 Remisol Chem Comment on above: Result Comment: 'F N ON < 1 - 3' ' 0.2 - 1 WEEK = 5 TO 50' ' 1 - 2 WEEKS = 50 - 500' ' 2 - 3 WEEKS = 100 - 5000' ' 3 - 4 WEEKS = 500 - 08852' ' 4 - 5 WEEKS = 1000 - 20049' ' 5 - 6 WEEKS = 83179 - 788246' ' 6 - 8 WEEKS = 73391 - 113459' ' 8 - 12 WEEKS = 45473 - 976252' Result Comment: 'F N ON < 1 - 3' ' 0.2 - 1 WEEK = 5 TO 50' ' 1 - 2 WEEKS = 50 - 500' ' 2 - 3 WEEKS = 100 - 5000' ' 3 - 4 WEEKS = 500 - 18261' ' 4 - 5 WEEKS = 1000 - 75466' ' 5 - 6 WEEKS = 75578 - 777492' ' 6 - 8 WEEKS = 93231 - 560523' ' 8 - 12 WEEKS = 77805 - 201276' Performed By: #### 2 [id number] ####[facility] [address] [place] [address] Consent for Treatmenton 11-03 Consent for Treatment [id number]#1.00TIF F Normal [facility] Physician Orderon 11-26-2023 Physician Order [id number]#1.00TIF F Normal [facility] Physician Order [id number]#1.00TIF F Normal [facility] Auto Diffon 05-13-2023 Basophils/100 WBC (Bld) 0.6 % Normal 0.0-2.0 [facility] Comment on above: Order Comment: Order Added by Discern Expert. Performed By: #### 2 [id number], [id number], [id number], [id number], [id number], [id number] ####[facility] [address] [place] [address] Basophils/Leukocyt es Auto (Bld) [Pure # fraction] 0.0 E9/L Normal 0.0-0.2 [facility] Comment on above: Order Comment: Order Added by Discern Expert. Performed By: #### 2 [id number], [id number], [id number], [id number], [id number], [id number] ####[facility] [address] [place] [address] Eosinophils/100 WBC (Bld) 3.9 % Normal 0.0-8.0 [facility] Comment on above: Order Comment: Order Added by Discern Expert. Performed By: #### 2 [id number], [id number], 8365699, 1253965, 7901028, 8731996 ####[address] [place] [address] Eosinophils/Leukoc ytes Auto (Bld) [Pure # fraction] 0.3 E9/L Normal 0.0-0.5 [facility] Comment on above: Order Comment: Order Added by Discern Expert. Performed By: #### 2 788011, [id number], 8671986, 4669435, 8967575, [id number] ####[address] [address] Lymphocytes/100 WBC (Bld) 32.4 % Normal 14.0-50.0 [facility] Comment on above: Order Comment: Order Added by Discern Expert. Performed By: #### 2 440459, [id number], [id number], [id number], 5742090, 4394821 ####[address] [address] Lymphocytes/Leukoc ytes Auto (Bld) [Pure # fraction] 2.6 E9/L Normal 1.0-4.0 [facility] Comment on above: Order Comment: Order Added by Discern Expert. Performed By: #### 2 945395, [id number], 1497231, 1209096, 3706461, [id number] ####[address] [address] Monocytes/100 WBC (Bld) 6.7 % Normal 4.0-14.0 [facility] Comment on above: Order Comment: Order Added by Discern Expert. Performed By: #### 2 155784, [id number], 2582769, 3330713, 0707626, 6921906 ####[address] [address] Monocytes/Leukocyt es Auto (Bld) [Pure # fraction] 0.5 E9/L Normal 0.2-1.0 [facility] Comment on above: Order Comment: Order Added by Discern Expert. Performed By: #### 2 049592, 89514334, 9769135, 3692175, 3178818, 0171838 ####[facility] [address] [place] [address] Neutrophils/100 WBC (Bld) 56.4 % Normal 36.0-75.0 [facility] Comment on above: Order Comment: Order Added by Discern Expert. Performed By: #### 2 690986, 88808466, 1915631, 1446809, 8670522, 8192312 ####[facility] [address] [place] [address] Neutrophils/Leukoc ytes Auto (Bld) [Pure # fraction] 4.6 E9/L Normal 2.0-7.5 [facility] Comment on above: Order Comment: Order Added by Discern Expert. Performed By: #### 2 954252, 35336247, 5992717, 8041138, 3676709, 5018562 ####[place] [address] [place] [address] BMPon 05-13-2023 Anion gap [Moles/Vol] 11 mmol/L Normal 6-16 [facility] Comment on above: Performed By: #### 2 232036, 09585219, 4615319, 5646637, 1289837, 8223784 ####[facility] [address] [place] [address] Calcium [Mass/Vol] 9.2 mg/dL Normal 8.9-11.1 [facility] Comment on above: Performed By: #### 2 696844, 07467336, 0242579, 6743192, 5279763, 2631279 ####[facility] [address] [place] [address] Chloride [Moles/Vol] 104 mmol/L Normal 101-111 [facility] Comment on above: Performed By: #### 2 660027, 58994259, 6747987, 6169347, 3438659, 6496936 ####[facility] [address] [place] [address] CO2 [Moles/Vol] 24 mmol/L Normal 21-31 [facility] Comment on above: Performed By: #### 2 573693, 10538784, 8696552, 7419335, 4251737, 0153910 ####[facility] [address] [place] [address] Creatinine [Mass/Vol] 0.8 mg/dL Normal 0.5-1.3 [facility] Comment on above: Performed By: #### 2 806527, 61045655, 2014914, 7413582, 4151387, 4965914 ####[facility] [address] [place] [address] Glucose [Mass/Vol] 104 mg/dL Normal 55-199 [facility] Comment on above: Result Comment: If t his glucose result represents a fasting glucose, interpretation should refer to the following reference range: 55-99 mg/dL Performed By: #### 2 894771, 84221135, 6488906, 4064735, 7799045, 4671940 ####[facility] [address] [place] [address] Potassium [Moles/Vol] 3.8 mmol/L Normal 3.5-5.3 [facility] Comment on above: Performed By: #### 2 240238, 91300492, 9469029, 4769234, 9479829, 3354590 ####[facility] [address] [place] [address] Sodium [Moles/Vol] 135 mmol/L Normal 135-145 [facility] Comment on above: Performed By: #### 2 747373, 47514645, 2161357, 8490317, 8132701, 4003345 ####[facility] [address] [place] [address] Urea nitrogen [Mass/Vol] 8 mg/dL Normal 5-21 [facility] Comment on above: Performed By: #### 2 182036, 86284670, 0703091, 2720885, 6036820, 4439322 ####[facility] [address] [place] [address] Urea nitrogen/Creatinin e [Mass ratio] 10 No Units Normal 10-20 [facility] Comment on above: Performed By: #### 2 028966, 55401335, 4549169, 0682385, 7801008, 8811282 ####[facility] [address] [place] [address] CBC w/ Auto Diffon 3 Erythrocyte distribution width (RBC) [Ratio] 17.4 % High 10.9-14.2 [facility] Comment on above: Performed By: #### 2 868086, 39160473, 9264556, 1806121, 0830391, 8778041 ####[address] [address] Hematocrit (Bld) [Volume fraction] 38.2 % Normal 34.0-46.0 [facility] Comment on above: Performed By: #### 2 182750, 80654493, 9870421, 8767205, 6419723, 9271203 ####[facility] [address] [place] [address] Hemoglobin (Bld) [Mass/Vol] 12.4 g/dL Normal 12.0-16.0 [facility] Comment on above: Performed By: #### 2 102891, 55578365, 8132985, 3785558, 2359265, 7098209 ####[address] [address] MCH (RBC) [Entitic mass] 26.2 pg Low 27.0-34.0 [facility] Comment on above: Performed By: #### 2 323364, 49211565, 7560587, 9267349, 5665159, 4719423 ####[address] [address] MCHC (RBC) [Mass/Vol] 32.6 g/dL Normal 31.4-36.0 [facility] Comment on above: Performed By: #### 2 740129, 73353355, 4709272, 6568450, 4096103, 9221669 ####[address] [place] [address] MCV (RBC) [Entitic vol] 80.5 fL Normal 80.0-100.0 [facility] Comment on above: Performed By: #### 2 685711, 21114025, 0493201, 9345608, 6755182, 2645076 ####[address] [address] Platelet mean volume (Bld) [Entitic vol] 8.2 fL Normal 6.4-10.8 [facility] Comment on above: Performed By: #### 2 692281, 17834770, 2819022, 1113004, 3757948, 5436397 ####[address] [address] Platelets (Bld) [#/Vol] 353.0 E9/L Normal 150.0-500.0 [facility] Comment on above: Performed By: #### 2 257406, 66071032, 4772334, 3966207, 3292159, 9104164 ####[address] [address] RBC (Bld) [#/Vol] 4.8 E12/L Normal 4.3-5.9 [facility] Comment on above: Performed By: #### 2 380278, 02862984, 6138992, 3360728, 7026277, 0558564 ####[address] [address] WBC corrected for nucl RBC Auto (Bld) [#/Vol] 8.1 E9/L Normal 4.0-11.0 [facility] Comment on above: Performed By: #### 2 298446, 35766460, 9222384, 5363472, 8391043, 9511871 ####[address] [place] [place] [address] CT Abdomen/Pelvis w/o Contra ston 05-13-2023 CT [...] No Oral contrast amount in ml's: 0 [facility] Consent for Treatmenton 05-04 Consent for Treatment [id number] F [facility] Discharge Instructionson Discharge Instructions [id number] FF [facility] ED Clinical Summaryon 2022 ED Clinical Summary [address] [id number] ED Clinical Summary Person Information Name: CHARISMA GRIGGS [place] Age: 37 Years : 1985 Sex: Female Language: Nepalese PCP: NONE, XXXX Marital Status: Phone: [phone] Visit Id: Visit Reason: Diarrhea; Vomiting; Abdominal [...] 05/13/2023 15:09:49 05/13/2023 15:09:49 05/13/2023 15:09:49 ADDRESS: [address] [place] [id number] PHYS DOC NOTES: MEDICAL INFORMATION: Prescriptions Given: [facility], [address] [place], [place] [id number], [phone] dicyclomine (Bentyl 10 mg Cap) 1 Capsules [...] up: With: Address: When: Liza Valdivia [address], [facility], [place] [phone] [facility] () In 3 days 05/16/2023 Comments: Call the [...] symptoms. DIAGNOSIS: Diarrhea; Nausea and vomiting Normal [facility] ED Note-Physicianon 05-13-20 ED Note-Physician [...] cramping, # 12 cap(s), Refills(s) 0, [facility], 170, cm, 05/13/23 11:38:00 EDT, [...] Nausea/Vomiting, # 12 tab(s), Refills(s) 0, Pharmacy: [facility], 170, cm, 05/13/23 11:38:00 EDT, [...] 3 days 05/16/2023 EDT [address], [address], [address] [place] [address] Business (1) Additional Instructions: Call the office of your primary care doctor to arrange for follow-up within the above-stated timeframe. Follow-up with your primary care doctor about this ED visit. You should review your labs, imaging, and diagnoses from this ED visit with your primary care (more content not included)... Normal [facility] Comment on above: Result Comment: [...] added (diluted fruit juice). ? Eat bland, myfo-hy-ycgecy foods in small amounts as you are able. These foods include bananas, applesauce, rice, lean meats, toast, and crackers. ? Avoid fluids that contain a lot of sugar or caffeine, such as energy drinks, sports drinks, and soda. ? Avoid alcohol. ? Avoid spicy or fatty foods. General instructions ? Take bbla-vbq-rnloicw and prescription medicines only as told by your health care provider. ? Drink enough fluid to keep your urine pale yellow. ? Wash your hands often using soap and water for at least 20 seconds. If soap and water are not available, use hand video tape duplicator. ? Make sure that everyone in your [...] and drinking to prevent dehydration. ? Take uxmv-qmo-vqbhwur and prescription medicines only as told by [...] provider. Document Revised: 01/25/2022 Document Reviewed: 01/25/2022 [employer] Patient Education ? 2022 trustedsafe. Infectious Disease Diarrhea, Adult Diarrhea is frequent [...] oral rehydration solution (ORS). This is an yruh-boy-qwdxcsi medicine that helps return your body to its normal balance of nutrients and (more content not included)... Normal [facility] ED Patient Summaryon 023 ED Patient Summary (Inserted Image. Elissa ble to display) [place] [id number] Patient Discharge Instructions Person Information Name: CHARISMA GRIGGS: 37 Years Arrival Date: 05/13/2023 11:30:59 Discharge Diagnosis: Diarrhea; Nausea and vomiting Primary Care Physician: NONE, XXXX Provider Information Primary Provider: Tomer Portillo DO Advanced Hardening Machine Operator:None The exam and treatment you received in the Emergency Department were for an urgent problem and are not intended as complete care. It is important that you follow up with a doctor, nurse practitioner, or physician?s agency sales management assistant for ongoing care. If your symptoms become worse or you do not improve as expected and you are unable to reach your usual health care provider, you should return to the Emergency Department. We are available 24 hours a day. CHARISMA GRIGGS has been given the following list of patient education materials, prescriptions and follow-up instructions: Follow-up Instructions: With: Address: When: Liza Valdivia [address], [facility], [place] [phone] [facility] () In 3 days 05/16/2023 Comments: Call the [...] opioids can be used to help relieve cvbswuql-mb-okzqxa pain and are often prescribed following a [...] Talk abo (more content not included)... Normal [facility] Hep Func Panelon 05-13-2023 Albumin [Mass/Vol] 3.8 g/dL Normal 3.3-5.0 [facility] Comment on above: Performed By: #### 2 479673, 80559443, 3749096, 6115998, 0317134, 1811959 ####[address] [address] Albumin/Globulin (S) [Mass conc ratio] 1.1 Normal 1.1-2.2 [facility] Comment on above: Performed By: #### 2 562250, 09332837, 3150987, 0902163, 7267607, 7437845 ####[address] [address] ALP [Catalytic activity/Vol] 77 Int._Unit/L Normal 21-98 [facility] Comment on above: Performed By: #### 2 891227, 03455195, 8368088, 6141225, 5159518, 4225946 ####[address] [address] ALT No additional P-5'-P [Catalytic activity/Vol] 26 Int._Unit/L Normal 6-46 [facility] Comment on above: Performed By: #### 2 899632, 86393963, 3978232, 2319999, 8573095, 6704889 ####[place] [address] AST [Catalytic activity/Vol] 25 Int._Unit/L Normal 5-43 [facility] Comment on above: Performed By: #### 2 091727, 08862838, 7946683, 9915259, 4770015, 0936886 ####[facility] [address] [place] [address] Bilirubin [Mass/Vol] 0.4 mg/dL Normal 0.0-1.1 [facility] Comment on above: Performed By: #### 2 530616, 16082415, 9744332, 9329214, 8373677, 3979288 ####[facility] [address] [place] [address] Bilirubin.direct [Mass/Vol] 0.1 mg/dL Normal 0.1-0.4 [facility] Comment on above: Performed By: #### 2 435256, 75090315, 0007227, 4725519, 4710815, 8973509 ####[facility] [address] [place] [address] Bilirubin.indirect [Mass or moles/Vol] 0.3 mg/dL Normal 0.1-0.9 [facility] Comment on above: Performed By: #### 2 596942, 51191821, 6883644, 6252188, 1401882, 5794470 ####[facility] [address] [place] [address] Globulin (S) [Mass/Vol] 3.6 g/dL Normal 1.4-4.0 [facility] Comment on above: Performed By: #### 2 169471, 38075864, 1094639, 1757447, 5222928, 2771966 ####[address] [address] Protein [Mass/Vol] 7.4 g/dL Normal 6.0-7.8 [facility] Comment on above: Performed By: #### 2 863429, 83711350, 6678314, 3525382, 8291737, 0811352 ####[address] [address] Lipase Levelon 05-13-2023 Lipase [Catalytic activity/Vol] 24 U/L Normal 13-58 [facility] Comment on above: Performed By: #### 2 942346, 06161617, 5472167, 8381033, 0036433, 8616846 ####[facility] [address] [place] [address] U BetaHcg Qualon 05-13-2023 HCG.beta subunit (U) [Moles/Vol] Negative Normal [facility] Comment on above: Performed By: #### 2 1401651 ####[address] [address] UA With Cult Reflexon 2022 Bacteria LM Ql (Urine sed) TRACE Normal Trace [facility] Comment on above: Performed By: #### 1 9474550 ####[facility] [address] [place] [address] Bilirubin Ql (U) Negative Normal Negative [facility] Comment on above: Performed By: #### 1 0671114 ####[facility] [address] [place] [address] Clarity (U) CLEAR Normal Clear [facility] Comment on above: Performed By: #### 1 6028868 ####[address] [address] Color (U) YELLOW Normal Yellow [facility] Comment on above: Performed By: #### 1 0165929 ####[address] [address] Epithelial cells.squamous LM.HPF (Urine sed) [#/Area] 0-2 Normal 0-2 [facility] Comment on above: Performed By: #### 1 4335241 ####[facility] [address] [place] [address] Glucose Test strip (U) [Mass/Vol] Negative Normal Negative [facility] Comment on above: Performed By: #### 1 4941460 ####[address] [address] Hemoglobin Ql (U) Negative Normal Negative [facility] Comment on above: Performed By: #### 1 5553970 ####[facility] [address] [place] [address] Ketones (U) [Mass/Vol] Negative Normal Negative [facility] Comment on above: Performed By: #### 1 9248422 ####[facility] [address] [place] [address] Devola.plasma/Lit hium.RBC (Bld) [Mass ratio] 0-3 Normal 0-3 [facility] Comment on above: Performed By: #### 1 9949306 ####[facility] [address] [place] [address] Mucus Ql (Urine sed) TRACE Normal [facility] Comment on above: Performed By: #### 1 7205420 ####[address] [address] Nitrite Ql (U) Negative Normal Negative [facility] Comment on above: Performed By: #### 1 3678220 ####[address] [address] pH (U) 7.5 [pH] Invalid Interpretation Code 5.0-9.0 [facility] Comment on above: Performed By: #### 1 4430830 ####[address] [address] Protein (U) [Mass/Vol] Negative Normal Negative [facility] Comment on above: Performed By: #### 1 5663884 ####[address] [address] Specific gravity (U) [Rel density] 1.015 Invalid Interpretation Code 1.005-1.030 [facility] Comment on above: Performed By: #### 1 9849049 ####[address] [address] Type of Urine collection method Clean Catch Normal [facility] Comment on above: Performed By: #### 1 4222503 ####[address] [address] Urobilinogen Qn (U) 0.2 {Laquita'U}/dL Normal 0.0-1.0 [facility] Comment on above: Performed By: #### 1 8055132 ####[address] [address] WBC Auto Ql (U) Negative Normal Negative [facility] Comment on above: Performed By: #### 1 6043334 ####[address] [address] WBC LM.HPF (Urine sed) [#/Area] 0-5 Normal 0-5 [facility] Comment on above: Performed By: #### 1 4900387 ####[address] [place] [address] eGFRon 05-13-2023 GFR/1.73 sq M.predicted among non-blacks MDRD (S/P/Bld) [Vol rate/Area] 98 mL/min/1.73 m2 Normal >=59 [facility] Comment on above: Order Comment: Order added by Discern Expert. Result Comment: Asbestos Pipe Supervisor eugenio kidney disease could be indicated at eGFR's of less than 60 mL/min/1.73m2. Kidney failure is indicated at less than 15 mL/min/1.73m2. Performed By: #### 2 232184, 88072452, 2542447, 5163770, 1735778, 8792427 ####[facility] [address] [place] [address] CBC AUTO DIFFon 05-23-2022 BASO # 0.0 103/ul Normal 0.0-0.1 [facility] Comment on above: Performed By: #### C BC #### [facility] [address] [place] [address] Dr. Rebeca Kaplan Basophils/100 WBC (Bld) 0.6 % Normal 0.2-2.0 [facility] Comment on above: Performed By: #### C BC #### [facility] [address] [place] [address] Dr. Rebeca Kaplan EO # 0.1 103/ul Normal 0.0-0.7 [facility] Comment on above: Performed By: #### C BC #### [facility] [address] [place] [address] Dr. Rebeca Kaplan Eosinophils/100 WBC (Bld) 0.8 % Critically low 0.9-7.0 [facility] Comment on above: Performed By: #### C BC #### [facility] [address] [place] [address] Dr. Rebeca Kaplan Erythrocyte distribution width (RBC) [Ratio] 15.9 % Critically high 11.0-15.0 [facility] Comment on above: Performed By: #### C BC #### [facility] [address] [place] [address] Dr. Rebeca Kaplan Hematocrit (Bld) [Volume fraction] 38.1 % Normal 36.0-48.0 [facility] Comment on above: Performed By: #### C BC #### [facility] [address] [place] [address] Dr. Rebeca Kaplan Hemoglobin (Bld) [Mass/Vol] 11.9 g/dL Critically low 12.0-16.0 [facility] Comment on above: Performed By: #### C BC #### [facility] [address] [place] [address] Dr. Rebeca Kaplan IG # 0.02 10e3/ul Normal 0.00-0.03 [facility] Comment on above: Performed By: #### C BC #### [facility] [address] [place] [address] Dr. Rebeca Kaplan IG % 0.3 % Normal 0.0-0.5 [facility] Comment on above: Performed By: #### C BC #### [facility] [address] [place] [address] Dr. Rebeca Kaplan LYMPH # 2.4 103/ul Normal 1.2-3.8 [facility] Comment on above: Performed By: #### C BC #### [facility] [address] [place] [address] Dr. Rebeca Kaplan Lymphocytes/100 WBC (Bld) 33.2 % Normal 20.5-60.0 [facility] Comment on above: Performed By: #### C BC #### [facility] [address] [place] [address] Dr. Rebeca Kaplan MANUAL DIFF REQ NO Normal [facility] Comment on above: Performed By: #### C BC #### [facility] [address] [place] [address] Dr. Rebeca Kaplan MCH (RBC) [Entitic mass] 26.3 pg Critically low 26.7-34.0 [facility] Comment on above: Performed By: #### C BC #### [facility] [address] [place] [address] Dr. Rebeca Kaplan MCHC (RBC) [Mass/Vol] 31.2 g/dL Normal 29.9-35.2 [facility] Comment on above: Performed By: #### C BC #### [facility] [address] [place] [address] Dr. Rebeca Kaplan MCV (RBC) [Entitic vol] 84.3 fL Normal 81.0-99.0 [facility] Comment on above: Performed By: #### C BC #### [facility] [address] [place] [address] Dr. Rebeca Kaplan MONO # 0.4 103/ul Normal 0.3-0.8 [facility] Comment on above: Performed By: #### C BC #### [facility] [address] [place] [address] Dr. Rebeca Kaplan Monocytes/100 WBC (Bld) 5.4 % Normal 1.7-12.0 [facility] Comment on above: Performed By: #### C BC #### [facility] [address] [place] [address] Dr. Rebeca Kaplan NEUT # 4.3 103/ul Normal 1.4-6.5 [facility] Comment on above: Performed By: #### C BC #### [facility] [address] [place] [address] Dr. Rebeca Kaplan Neutrophils/100 WBC (Bld) 59.7 % Normal 43.0-75.0 [facility] Comment on above: Performed By: #### C BC #### [facility] [address] [place] [address] Dr. Rebeca Kaplan Platelet mean volume (Bld) [Entitic vol] 10.0 fL Normal 9.5-13.5 [facility] Comment on above: Performed By: #### C BC #### [facility] [address] [place] [address] Dr. Rebeca Kaplan PLT 356 103/ul Normal 150-450 [facility] Comment on above: Performed By: #### C BC #### [facility] [address] [place] [address] Dr. Rebeca Kaplan RBC 4.52 106/ul Normal 4.20-5.40 [facility] Comment on above: Performed By: #### C BC #### [facility] [address] [place] [address] [address] Rebeca Kaplan WBC 7.2 103/ul Normal 4.0-11.0 [facility] Comment on above: Performed By: #### C BC #### [facility] [address] [place] [address] [address] Rebeca Kaplan ER URINE PROFILEon 2 Bilirubin Ql (U) Negative Normal NEGATIVE [facility] Comment on above: Performed By: #### U MICRO, ERUR #### [facility] [address] [place] [address] Dr. Rebeca Kaplan Clarity (U) CLEAR Normal CLEAR [facility] Comment on above: Performed By: #### U MICRO, ERUR #### [facility] [address] [place] [address] Dr. Rebeca Kaplan Color (U) LT. YELLOW Normal YELLOW [facility] Comment on above: Performed By: #### U MICRO, ERUR #### [facility] [address] [place] [address] Dr. Rebeca Kaplan ERUAHD A micrscopic examina tion will be performed if indicated. Normal [facility] Comment on above: Performed By: #### U MICRO, ERUR #### [facility] [address] [place] [address] Dr. Rebeca Kaplan Glucose Ql (U) Negative Normal NEGATIVE [facility] Comment on above: Performed By: #### U MICRO, ERUR #### [facility] [address] [place] [address] [address] Rebeca Kaplan Hemoglobin Ql (U) SMALL Abnormal NEGATIVE [facility] Comment on above: Performed By: #### U MICRO, ERUR #### [facility] [address] [place] [address] [address] Rebeca Kaplan Ketones Ql (U) Negative Normal NEGATIVE [facility] Comment on above: Performed By: #### U MICRO, ERUR #### [facility] [address] [place] [address] Dr. Rebeca Kaplan LEUKOCYTES TRACE Abnormal NEGATIVE [facility] Comment on above: Performed By: #### U MICRO, ERUR #### [facility] [address] [place] [address] [address] Rebeca Kaplan Nitrite Ql (U) Negative Normal NEGATIVE [facility] Comment on above: Performed By: #### U MICRO, ERUR #### [facility] [address] [place] [address] Dr. Rebeca Kaplan pH (U) 6.0 [pH] Normal 5-9 [facility] Comment on above: Performed By: #### U MICRO, ERUR #### [facility] [address] [place] [address] Dr. Rebeca Kaplan SPEC GRAVITY 1.010 Normal 1.005-<=1.025 [facility] Comment on above: Performed By: #### U MICRO, ERUR #### [facility] [address] [place] [address] Dr. Rebeca Kaplan UA PROTEIN Negative Normal NEGATIVE/ TRACE [facility] Comment on above: Performed By: #### U MICRO, ERUR #### [facility] [address] [place] [address] Dr. Rebeca Kaplan UR MICRO IND INDICATED Normal [facility] Comment on above: Performed By: #### U MICRO, ERUR #### [facility] [address] [place] [address] Dr. Rebeca Kaplan Urobilinogen Qn (U) 0.2 {Laquita'U}/dL Normal 0.2 - 1.0 [facility] Comment on above: Performed By: #### U MICRO, ERUR #### [facility] [address] [place] [address] Dr. Rebeca Kaplan PREG HCG QUALon 05-23-2022 , QUAL Negative Normal NEGATIVE [facility] Comment on above: Performed By: #### P REG #### [facility] [address] [place] [address] Dr. Rebeca Kaplan PROF CHEM 8 (BAS METB)on Anion gap [Moles/Vol] 14.2 mmol/L Normal [facility] Comment on above: Performed By: #### B MP #### [facility] [address] [address] [address] Rebeca Kaplan Calcium [Mass/Vol] 9.0 mg/dL Normal 8.5-10.1 [facility] Comment on above: Performed By: #### B MP #### [facility] [address] [address] [address] Rebeca Kaplan Chloride [Moles/Vol] 103 mmol/L Normal 98-107 [facility] Comment on above: Performed By: #### B MP #### [facility] [address] [address] [address] Rebeca Kaplan CO2 [Moles/Vol] 26.5 mmol/L Normal 21.0-32.0 [facility] Comment on above: Performed By: #### B MP #### [facility] [address] [address] [address] Rebeca Kaplan Creatinine [Mass/Vol] 0.78 mg/dL Normal 0.55-1.02 [facility] Comment on above: Performed By: #### B MP #### [facility] [address] [address] [address] Rebeca Kaplan EGFR-AF STATELESS >60 Normal >=60 [facility] Comment on above: Performed By: #### B MP #### [facility] [address] [address] [address] Rebeca Kaplan EGFR-NON AF STATELESS >60 Normal >=60 [facility] Comment on above: Performed By: #### B MP #### [facility] [address] [address] [address] Rebeca Kaplan Glucose [Mass/Vol] 112 mg/dL Critically high 74-106 [facility] Comment on above: Performed By: #### B MP #### [facility] [address] [address] [address] Rebeca Kaplan Potassium [Moles/Vol] 3.7 mmol/L Normal 3.5-5.1 [facility] Comment on above: Performed By: #### B MP #### [facility] [address] [address] [address] Rebeca Kaplan Sodium [Moles/Vol] 140 mmol/L Normal 136-145 [facility] Comment on above: Performed By: #### B MP #### [facility] [address] [place] [address] Dr. Rebeca Kaplan Urea nitrogen [Mass/Vol] 11.0 mg/dL Normal 7.0-18.0 [facility] Comment on above: Performed By: #### B MP #### [facility] [address] [place] [address] Dr. Rebeca Kaplan Urea nitrogen/Creatinin e [Mass ratio] 14.1 mg/mg Normal [facility] Comment on above: Performed By: #### B MP #### [facility] [address] [place] [address] Dr. Rebeca Kaplan URINE MICROSCOPIC ONLYon BACTERIA TRACE Abnormal NONE SEEN [facility] Comment on above: Performed By: #### U MICRO, ERUR #### [facility] [address] [place] [address] Dr. Rebeca Kaplan Bacteria identified Cx Nom (U) NOT INDICATED Normal [facility] Comment on above: Performed By: #### U MICRO, ERUR #### [facility] [address] [place] [address] Dr. Rebeca Kaplan CAST NONE SEEN Normal NONE SEEN [facility] Comment on above: Performed By: #### U MICRO, ERUR #### [facility] [address] [place] [address] Dr. Rebeca Kaplan Crystals LM Nom (Urine sed) NONE SEEN Normal NONE SEEN [facility] Comment on above: Performed By: #### U MICRO, ERUR #### [facility] [address] [place] [address] Dr. Rebeca Kaplan Epithelial cells LM Ql (Urine sed) FEW Abnormal NONE SEEN /RARE [facility] Comment on above: Performed By: #### U MICRO, ERUR #### [facility] [address] [place] [address] Dr. Rebeca Kaplan MUCOUS NONE SEEN Normal NONE SEEN [facility] Comment on above: Performed By: #### U MICRO, ERUR #### [facility] [address] [place], [place] [address] Dr. Rebeca Kaplan RBC 0-2 Normal 0-2 [facility] Comment on above: Performed By: #### U MICRO, ERUR #### [facility] [address] [place], [place] [address] Dr. Rebeca Kaplan WBC 0-2 Abnormal NONE SEEN [facility] Comment on above: Performed By: #### U MICRO, ERUR #### [facility] [address] [place], [place] [address] Dr. Rebeca Kaplan US PELVIS AND TRANSVAGon [...] by: TORRES CHOI Date: 2022-05-23 11:13 Normal [facility] C Cervicalon 07-04-2018 Protein mass [...] presentPerforming LocationsR1: This test was performed at: [facility], [address] [place] [address], [address] , Normal [facility] Comment on above: Performed By: #### 1 [id number], 3139702, 4926735, 9749823, 1740545, 3233199 ####[facility] [address] [place] [address] Coding Summary.on 07-03-2018 Coding Summary. CODING DATE: 018 FINAL [facility] STATUS: Home (Routine DC) PAYOR: Self [...] Revised Date Saved: 07/03/2018 03:48 pm Normal [facility] Auto Diffon 07-02-2018 Basophils Auto #/vol (Bld) 0.9 % Normal 0.0-2.0 [facility] Comment on above: Order Comment: Order Added by Discern Expert. Performed By: #### 1 [id number], 4544173, 4754740, 7575668, 6196253, 5745284 ####[facility] [address] [place] [address] Basophils/Leukocyt es Auto Pure number fraction (Bld) 0.1 E9/L Normal 0.0-0.2 [facility] Comment on above: Order Comment: Order Added by Discern Expert. Performed By: #### 1 [id number], 5308540, 0068079, 7917454, 6346962, 3662925 ####[facility] [address] [place] [address] Eosinophils/100 WBC Auto (Bld) 2.4 % Normal 0.0-8.0 [facility] Comment on above: Order Comment: Order Added by Discern Expert. Performed By: #### 1 3274089, 1432219, 4956885, 0086592, 6587399, 3688498 ####[address] [place] [address] Eosinophils/Leukoc ytes Auto Pure number fraction (Bld) 0.2 E9/L Normal 0.0-0.5 [facility] Comment on above: Order Comment: Order Added by Discern Expert. Performed By: #### 1 6048460, 2499854, 5856603, 5124631, 9293044, 8129111 ####[address] [place] [address] Lymphocytes/100 WBC Auto (Bld) 32.0 % Normal 14.0-50.0 [facility] Comment on above: Order Comment: Order Added by Marianela Expert. Performed By: #### 1 2831321, 1262652, 1517295, 9262620, 1678045, 2570039 ####[address] [address] Lymphocytes/Leukoc ytes Auto Pure number fraction (Bld) 2.6 E9/L Normal 1.0-4.0 [facility] Comment on above: Order Comment: Order Added by Marianela Expert. Performed By: #### 1 7452470, 6410638, 2958990, 7376398, 6171355, 9881202 ####[address] [address] Monocytes/100 WBC Auto (Bld) 6.5 % Normal 4.0-14.0 [facility] Comment on above: Order Comment: Order Added by Marianela Expert. Performed By: #### 1 1498528, 0402781, 2239290, 6973098, 1405108, 0389211 ####[address] [place] [address] Monocytes/Leukocyt es Auto Pure number fraction (Bld) 0.5 E9/L Normal 0.2-1.0 [facility] Comment on above: Order Comment: Order Added by Marianela Expert. Performed By: #### 1 1590259, 2818384, 0663655, 3534561, 0407412, 8794760 ####[facility] [address] [place] [address] Neutrophils/100 WBC Auto (Bld) 58.2 % Normal 36.0-75.0 [facility] Comment on above: Order Comment: Order Added by Discern Expert. Performed By: #### 1 4279369, 1973788, 6845519, 2131041, 1242713, 3565164 ####[facility] [address] [place] [address] Neutrophils/Leukoc ytes Auto Pure number fraction (Bld) 4.7 E9/L Normal 2.0-7.5 [facility] Comment on above: Order Comment: Order Added by Discern Expert. Performed By: #### 1 3289802, 0985530, 4924355, 7821741, 7851446, 5888285 ####[address] [place] [address] BMPon 07-02-2018 Anion gap 3 molar conc 10 mmol/L Normal 6-16 [facility] Comment on above: Performed By: #### 1 7621913, 4452738, 5985792, 3673278, 9572520, 1248908 ####[facility] [address] [place] [address] Calcium mass conc 8.9 mg/dL Normal 8.9-11.1 [facility] Comment on above: Performed By: #### 1 2813389, 6912474, 8353931, 0692222, 8532646, 5593364 ####[facility] [address] [place] [address] Chloride molar conc 106 mmol/L Normal 101-111 [facility] Comment on above: Performed By: #### 1 4884288, 4774298, 8697750, 3001775, 2723740, 8446576 ####[facility] [address] [place] [address] CO2 molar conc 24 mmol/L Normal 21-31 [facility] Comment on above: Performed By: #### 1 1284863, 1662481, 3303122, 9689509, 0966886, 0253353 ####[facility] [address] [place] [address] Creatinine mass conc 0.7 mg/dL Normal 0.5-1.3 [facility] Comment on above: Performed By: #### 1 0012317, 8082800, 0991048, 5962496, 9943139, 4830704 ####[facility] [address] [place] [address] Glucose mass conc 97 mg/dL Normal 55-199 [facility] Comment on above: Result Comment: If t his glucose result represents a fasting glucose, interpretation should refer to the following reference range: 55-99 mg/dL Performed By: #### 1 9329628, 5982037, 9746229, 2012952, 8533032, 8891053 ####[facility] [address] [place] [address] Potassium molar conc 3.5 mmol/L Normal 3.5-5.3 [facility] Comment on above: Performed By: #### 1 8461424, 0964089, 9389314, 9410110, 6257096, 0165138 ####[facility] [address] [place] [address] Sodium molar conc 136 mmol/L Normal 135-145 [facility] Comment on above: Performed By: #### 1 0492222, 2026464, 8871519, 7780341, 8949103, 8777324 ####[facility] [address] [place] [address] Urea nitrogen mass conc 16 mg/dL Normal 5-21 [facility] Comment on above: Performed By: #### 1 7886418, 0768130, 7890816, 2088694, 0953816, 7239414 ####[facility] [address] [place] [address] Urea nitrogen/Creatinin e mass ratio 23 No Units High 10-20 [facility] Comment on above: Performed By: #### 1 8346526, 8779936, 1363982, 6860318, 5609074, 5756451 ####[facility] [address] [place] [address] BhCG Quanton 07-02-2018 HCG.beta subunit Qn m[IU]/mL Normal 1-3 [facility] Comment on above: Result Comment: GEST ATIONAL AGE HCG RANGE (mIU/mL) NON- <1-3 0.2-1 WEEKS 5-50 1-2 WEEKS 50-500 2-3 WEEKS 100-5,000 3-4 WEEKS 500-10,000 4-5 WEEKS 1,000-50,000 5-6 WEEKS 10,000-100,000 6-8 WEEKS 15,000-200,000 8-12 WEEKS 10,000-100,000 Performed By: #### 2 199[address] ####[address] CBC w/ Auto Diffon 8 Erythrocyte distribution width Auto Ratio (RBC) 15.6 % High 10.9-14.2 [facility] Comment on above: Performed By: #### 1 1541037, 8903069, 5630132, 6178255, 6652207, 1797023 ####[address] Hematocrit Auto Volume Fraction (Bld) 37.7 % Normal 34.0-46.0 [facility] Comment on above: Performed By: #### 1 6783732, 9332202, 4372364, 1628582, 3145509, 8645817 ####[facility] [address] [place] [address] Hemoglobin mass conc (Bld) 12.5 g/dL Normal 12.0-16.0 [facility] Comment on above: Performed By: #### 1 0811892, 3462892, 7755655, 5991151, 5289849, 0387963 ####[facility] [address] [place] [address] MCH Auto Entitic mass (RBC) 26.9 pg Low 27.0-34.0 [facility] Comment on above: Performed By: #### 1 7643909, 2081531, 5415136, 3950723, 6073610, 0100410 ####[address] [place] [address] MCHC Auto mass conc (RBC) 33.1 g/dL Normal 31.4-39.3 [facility] Comment on above: Performed By: #### 1 6286777, 8480997, 7267489, 2976832, 3466204, 0032826 ####[address] [address] MCV Auto Entitic volume (RBC) 81.4 fL Normal 80.0-100.0 [facility] Comment on above: Performed By: #### 1 0145105, 4372793, 2563514, 5399365, 9650610, 0135130 ####[address] [address] Platelet mean volume Auto Entitic volume (Bld) 8.6 fL Normal 6.4-10.8 [facility] Comment on above: Performed By: #### 1 6791435, 9961219, 2344142, 8608701, 1952575, 3774794 ####[address] Platelets Auto #/vol (Bld) 348.0 E9/L Normal 150.0-500.0 [facility] Comment on above: Performed By: #### 1 8314595, 8829023, 1722828, 0006499, 0121137, 6419802 ####[address] [address] RBC Auto #/vol (Bld) 4.6 E12/L Normal 4.3-5.9 [facility] Comment on above: Performed By: #### 1 9062016, 0093307, 3333225, 3011564, 1719386, 3154390 ####[address] [address] WBC corrected for nucl RBC Auto #/vol (Bld) 8.0 E9/L Normal 4.0-11.0 [facility] Comment on above: Performed By: #### 1 2805084, 2441102, 8021948, 4676609, 9605183, 6501481 ####[facility] [address] [place] [address] Discharge Instructionson Discharge Instructions Discharge insturctions compelte, RR equal and non labored with no distress noted. Nurse educated to make appt with Dr. Ellsworth and return with any worsneing symptoms. pt verbalized understanding. Normal [facility] Comment on above: Result Comment: Elec tronically Signed By: Shivani VALADEZ, Figueroa Burr\.br\Date and Time Signed: 07/02/18 16:13 EST ED Clinical Summaryon 2017 ED Clinical Summary [address] [address] ED Clinical SummaryPerson Information Name: CHARISMA GRIGGS/AlpeshCoco Age: 32 Years : 1985 12:00 AM Sex: Female Language:Nepalese PCP: Demetrius KU DO Marital Status: Visit [...] PM 07/02/2018 4:14 PM 07/02/2018 4:14 PM ADDRESS:[address] [place], [place] [id number] PHYS DOC NOTES: MEDICAL INFORMATION: Prescriptions Given:Prescription Display acetaminophen-hydrocodon e (Clements 325 mg-5 mg oral tablet) 1 tab(s), Oral, q6hr, 8 tab(s), Refill(s) 0, [facility] ondansetron (Zofran ODT 4 mg Tab-Dis) 4 mg = 1 tab(s), Oral, q6hr, PRN Nausea, # 4 tab(s), Refills(s) 0, Pharmacy: [facility] PATIENT EDUCATION INFORMATION: Instructions:Miscarriage Follow up:With: Address: When: Baltazar Ellsworth [address] [place] [address], [facility] [address], [place] [address] Business (1) Within 2 to 3 days Comments: Return to ED if symptoms worsen DIAGNOSIS:1:Miscarriage; 2:Vaginal bleeding Normal [facility] ED Note-Physicianon 07-02-20 ED Note-Physician [...] bowel sounds, no guarding/rebound tenderness/rigidity : Nurse Figueroa present during exam, scant blood in the [...] with likely miscarriage. Recommend follow up with Lead Cytogenetic Technologist. Blood type is O+. Pt with three previous miscarriages and aware of things that she would need to return to the ED for. All questions answered.Assessment/Plan 1. Miscarriage Ordered: acetaminophen-hydrocodon e, 1 tab(s), Oral, q6hr, 8 tab(s), Refill(s) 0, [facility] 2. Vaginal bleeding Ordered: acetaminophen-hydrocodon e, 1 tab(s), Oral, q6hr, 8 tab(s), Refill(s) 0, [facility] 1985 Orders: acetaminophen-hydrocodon e, 1 tab(s), Tab, Oral, q4hr PRN Pain for 5 day(s), Stop date 07/07/18 15:59:00 EST, STAT, Start date 07/02/18 16:00:00 EST ondansetron, 4 mg = 1 tab(s), Oral, q6hr, PRN Nausea, # 4 tab(s), Refills(s) 0, Pharmacy: [facility] 1985 Automated Diff Basic Metabolic Panel Beta hCG Quantitative CBC w/ Auto Diff Cervical Culture eGFR Hepatic Function Panel Lipase Level Pelvic Exam Setup UA With Cult Reflex US 1st Trimester US TransvaginalMedications Administered Given Clements 5/325 Tab, 1 tab(s), OralDisposition Plan Patient Discharge Condition Stable Discharge Disposition Home Discharge Prescription List Prescriptions Clements 325 mg-5 mg oral tablet, 1 tab(s), Oral, q6hr Zofran ODT 4 mg Tab-Dis, 4 mg= 1 tab(s), Oral, q6hr, PRN Follow-up With When Contact Information Baltazar Ellsworth Within 2 to 3 days [address] [place] [address]- Business (1) Additional Instructions: Return to ED if symptoms worsen Patient Education MiscarriageProblem List/Past Medical History Ongoing No qualifying data Historical MiscarriageMedications Inpatient Clements 5/325 Tab, 1 tab(s), Oral, q4hr, PRN Home Clements 325 mg-5 mg oral tablet, 1 tab(s), [...] Lymph Auto: 32 % (07/02/18 14:38:00 EST) Preble Auto: 6.5 % (07/02/18 14:38:00 EST) Eos Auto: 2.4 % (07/02/18 14:38:00 EST) Basophil Auto: 0.9 % (07/02/18 14:38:00 EST) Neutro Absolute: 4.7 E9/L (07/02/18 14:38:00 EST) Lymph Absolute: 2.6 E9/L (07/02/18 14:38:00 EST) Preble Absolute: 0.5 E9/L (07/02/18 14:38:00 EST) Eos [...] adnexal mass. Signed By: Melony Barnes MD US Transvaginal 07/02/18 15:59:34 Please refer to transabdominal pelvic sonogram report. Signed By: Melony Barnes MD [facility] Comment on above: Result Comment: Elec tronically Signed By: Kenzie Akers DO\.br\Date and Time Signed: 07/02/18 16:09 EST ED Patient Education Noteon 07-02-2018 ED Patient Education Note Family MedicineMiscarriageA miscarriage is the sudden loss of an [...] approved by your caregiver. ? Only take uama-fti-vyoxwnh or prescription medicines for pain or discomfort [...] 11/15/2013 Document Reviewed: 09/08/2012ExitCare? Patient Information ?2015 [employer]. This information is not intended to replace advice given to you by your health care provider. Make sure you discuss any questions you have with your health care provider.Return if you have any problems or concerns. Call your regular Lead Cytogenetic Technologist or the one provided for a follow up appointment. Normal [facility] ED Patient Summaryon 018 ED Patient Summary (Inserted Image. Elissa ble to display) [address] [place] [id number] Patient Discharge Instructions Person Information Name: CHARISMA GRIGGS Age: 32 Years Date: 07/02/2018 2:01 PMDischarge Diagnosis: 1:Miscarriage; 2:Vaginal bleeding Primary Care Physician: Demetrius KU DO Provider InformationPrimary Provider: Rebecca Akers DO Hardening Machine Operator:None The exam and treatment you received in the Emergency Department were for an urgent problem and are not intended as complete care. It is important that you follow up with a doctor, nurse practitioner, or physician?s agency sales management assistant for ongoing care. If your symptoms become worse or you do not improve as expected and you are unable to reach your usual health care provider, you should return to the Emergency Department. We are available 24 hours a day. CHARISMA GRIGGS has been given the following list of patient education materials, prescriptions and follow-up instructions: Follow-up Instructions:With: Address: When: [address], [place] [phone] Business (1) Within 2 to 3 days [...] opioids can be used to help relieve jbdfpbfg-as-pfdghm pain and are often prescribed following a [...] be struggling with addiction, tell your health campground caretaker and ask for guidance or call [facility] National Helpline at 7-060-564-NKJT. p Source: [place] Department of Health and Human Services/Center for Disease Control & Prevention [facility] Medications Given:Medication Dose Route acetaminophen-hydrocodon e 1.00 tab(s) Oral Medication Information:[facility], [address] [place], [place] [id number], [phone]-hydroc odone (Clements 325 mg-5 mg oral tablet) 1 Tabs By Mouth every 6 hours. Refills: 0.ondansetron (Zofran ODT 4 mg Tab-Dis) 1 Tabs By Mouth every 6 hours as needed Nausea. Refills: 0.Comment: Pharmacy Information: [facility]ie [place] ank you for choosing [facility] ent Education Materials: MiscarriageA miscarriage is [...] approved by your caregiver. ? Only take izxd-cxm-fkajqaz or prescription medicines for pain or discomfort [...] 11/15/2013 Document Reviewed: 09/08/2012ExitCare? Patient Information ?2014 [employer]. This information is not intended to replace advice given to you by your health care provider. Make sure you discuss any questions you have with your health care provider.Return if you have any problems or concerns. Call your regular Lead Cytogenetic Technologist or the one provided for a follow up appointment. ANSON Garces MELANIE J , have received the following patient education materials/instructions and have verbalized understanding: Patient Education Materials: Miscarriage Follow-up Instructions: With: Address: When: Baltazar Ellsworth [address], [place] [address] Business (1) Within 2 to 3 days Comments: Return to ED if symptoms worsen Prescriptions: [acetaminophen-hydrocodo ne (Clements 325 mg-5 mg oral tablet)] [ondansetron (Zofran ODT 4 mg Tab-Dis)] Patient Signature Date Clinician/Nurse Signature Date 07/02/18 16:14:02 Normal [facility] Hep Func Panelon 07-02-2018 Albumin mass conc 1.2 g/dL Normal 1.1-2.2 [facility] Comment on above: Performed By: #### 1 7153622, 9870717, 8659434, 6542050, 3494194, 9652695 ####[facility] [address] [place] [address] Albumin mass conc 3.7 g/dL Normal 3.3-5.0 [facility] Comment on above: Performed By: #### 1 8642725, 4623816, 1633607, 8546001, 8299763, 1864122 ####[facility] [address] [place] [address] ALP enzyme act/vol 69 Int._Unit/L Normal 21-98 [facility] Comment on above: Performed By: #### 1 4895356, 5371767, 8032599, 7877841, 5897247, 4948820 ####[facility] [address] [place] [address] ALT No additional P-5'-P enzyme act/vol 12 Int._Unit/L Normal 6-46 [facility] Comment on above: Performed By: #### 1 1917362, 9626770, 6051888, 4872746, 9000593, 4530641 ####[facility] [address] [place] [address] AST enzyme act/vol 15 Int._Unit/L Normal 5-43 [facility] Comment on above: Performed By: #### 1 0272500, 5482028, 7632480, 9935199, 7578080, 6248372 ####[facility] [facility] [address] [place] [address] Bilirubin mass conc 0.2 mg/dL Normal 0.0-1.1 [facility] Comment on above: Performed By: #### 1 [id number], [id number], [id number], [id number], [id number], [id number] ####[facility] [address] [place] [address] Bilirubin.direct mass conc mg/dL Normal 0.1-0.4 [facility] Comment on above: Performed By: #### 1 [id number], [id number], [id number], [id number], [id number], [id number] ####[facility] [address] [place] [address] Bilirubin.indirect [Mass or Moles/volume] in Serum or Plasma UT Abnormal 0.1-0.9 [facility] Comment on above: Result Comment: Resu lt verified by Discern Rule. Performed result UT (Unable to Calculate) was sent as an Alpha code due the inability to calculate a valid numeric value. Performed By: #### 1 [id number], [id number], [id number], [id number], [id number], [id number] ####[facility] [address] [place] [address] Globulin Calculated mass conc (S) 3.2 g/dL Normal 1.4-4.0 [facility] Comment on above: Performed By: #### 1 [id number], [id number], 0381270, 1091257, 5410525, 6777456 ####[facility] [address] [place] [address] Protein mass conc 6.9 g/dL Normal 6.0-7.8 [facility] Comment on above: Performed By: #### 1 [id number], [id number], 6429274, 9722590, 6114582, 4965512 ####[facility] [address] [place] [address] Lipase Levelon 07-02-2018 Lipase enzyme act/vol 22 unit/L Normal 13-58 [facility] Comment on above: Performed By: #### 1 [id number], [id number], 2817140, 6943983, 9110733, 7712389 ####[facility] [address] [place] [address] UA With Cult Reflexon 2017 Bacteria LM Ql (Urine sed) TRACE Normal Trace [facility] Comment on above: Performed By: #### 1 [id number] ####[facility] [address] [place] [address] Bilirubin Ql (U) Negative Normal Negative [facility] Comment on above: Performed By: #### 1 [id number] ####[facility] [address] [place] [address] Clarity Nom (U) SL CLOUDY Abnormal Clear [facility] Comment on above: Performed By: #### 1 [id number] ####[facility] [address] [place] [address] Color Auto Nom (U) YELLOW Normal Yellow [facility] Comment on above: Performed By: #### 1 [id number] ####[address] [address] Epithelial cells.squamous LM.HPF #/area (Urine sed) 3-4 Normal 0-2 [facility] Comment on above: Performed By: #### 1 [id number] ####[facility] [address] [place] [address] Glucose Test strip mass conc (U) Negative Normal Negative [facility] Comment on above: Performed By: #### 1 [id number] ####[address] [address] Hemoglobin Test strip Ql (U) 3+ Abnormal Negative [facility] Comment on above: Performed By: #### 1 [id number] ####[address] [address] Ketones mass conc (U) Negative Normal Negative [facility] Comment on above: Performed By: #### 1 [id number] ####[address] [address] Devola.plasma/Lit hium.RBC mass ratio (Bld) >30 Abnormal 0-3 [facility] Comment on above: Performed By: #### 1 [id number] ####[address] [address] Mucus LM Ql (Urine sed) 2+ Normal [facility] Comment on above: Performed By: #### 1 [id number] ####[address] [address] Nitrite Test strip Ql (U) Negative Normal Negative [facility] Comment on above: Performed By: #### 1 [id number] ####[address] [address] pH Test strip (U) 6.0 [pH] Invalid Interpretation Code 5.0-9.0 [facility] Comment on above: Performed By: #### 1 [id number] ####[address] [address] Protein mass conc (U) Negative Normal Negative [facility] Comment on above: Performed By: #### 1 [id number] ####[address] [address] Specific gravity Relative Density (U) 1.025 Invalid Interpretation Code 1.005-1.030 [facility] Comment on above: Performed By: #### 1 [id number] ####[facility] [address] [place] [address] UA Spec Desc Random Urine Normal [facility] Comment on above: Performed By: #### 1 [id number] ####[facility] [address] [place] [address] Urobilinogen Test strip Qn (U) 0.2 {Laquita'U}/dL Normal 0.0-1.0 [facility] Comment on above: Performed By: #### 1 [id number] ####[facility] [address] [place] [address] WBC Auto Ql (U) Negative Normal Negative [facility] Comment on above: Performed By: #### 1 [id number] ####[address] [address] WBC LM.HPF #/area (Urine sed) 0-5 Normal 0-5 [facility] Comment on above: Performed By: #### 1 [id number] ####[facility] [address] [place] [address] Yeast LM Ql (Urine sed) TRACE Normal [facility] Comment on above: Performed By: #### 1 [id number] ####[place] [id number] US 1st Trimesteron 07-02-2018 US 1st Trimester [...] MD Transcribed by: MELINDA Technologist: TITI Walters [facility] US Transvaginalon 07-02-2018 US Transvaginal Exam Date/Time:07/02/2018 15:54 ESTReason for Exam:Vaginal bleedingReportPlease refer to transabdominal pelvic sonogram report. FINAL REPORT Dictated: 07/02/2018 3:56 pm Melony Barnes MD Signed (Electronic Signature): 07/02/2018 3:56 pm Signed by: Melony Barnes MD Transcribed by: MELINDA Technologist: [facility] Selena [facility] eGFRon 07-02-2018 GFR/1.73 sq M predicted among blacks MDRD vol rate/area (S/P/Bld) mL/min/{1.73_m2} Normal >=59 [facility] Comment on above: Order Comment: Order added by Discern Expert. Result Comment: eGFR is race adjusted. AA=. Performed By: #### 1 [id number], [id number], 0638845, 9158068, 0530618, 2659378 ####[facility] [address] [place] [address] GFR/1.73 sq M predicted among non-blacks MDRD vol rate/area (S/P/Bld) mL/min/{1.73_m2} Normal >=59 [facility] Comment on above: Order Comment: Order added by Discern Expert. Result Comment: [employer] Supervisor eugenio kidney disease could be indicated at eGFR's of less than 60 mL/min/1.73m2. Kidney failure is indicated at less than 15 mL/min/1.73m2. Performed By: #### 1 [id number], 5946614, 1642664, 0541554, 3386945, 5885131 ####[facility] [address] [place] [address] Social History Date Type Detail Facility Start: 1985 Sex Assigned At Female F [facility] Tobacco smoking status [facility] Sex Assigned At Female [facility] Clinical Note 07-10-2021 Note Date & [...] authenticated by: JAMISON CAMARENA Date: 2021-07-10 13:10 [facility] Evaluation + Plan note Note Date & Type Note Facility Evaluation + Plan note No data available for this section [facility] Evaluation + Plan note Note Date & Type Note Facility Evaluation + Plan note Future Appointments Appointment Date:01/13/2024 09:20:00 AM Scheduled Provider:Makayla Gar Location:[facility] Appointment Type:FM New Patient - Adult [facility] [place] Evaluation note Note Date & Type Note Facility Evaluation note No assessment information availa [facility] Work Phone: Hospital Discharge instructions Note Date & Type Note Facility Hospital Discharge instructions No data available for this section [facility] Progress note Note Date & Type Note Facility Progress note No data available for this section [facility] Summary Purpose Family History No Family History Records FoundNo Family History Records Found No data available for this section No Family History Records Found No data available for this section No Family History Records FoundNo Family History Records Found Advance Directives No Advanced Directives Records FoundNo Advanced Directives Records FoundNo Advanced Directives Records FoundNo Advanced Directives Records FoundNo Advanced Directives Records Found Additional Source Comments INFORMATION SOURCE (unrecogn ized section and content) DATE CREATED AUTHOR 08/13/2018 [facility] DATE CREATED AUTHOR AUTHOR'S ORGANIZ ATION 05/27/2022 [facility] DATE CREATED AUTHOR AUTHOR'S ORGANIZ ATION 12/31/2023 [facility] EPIC DATE CREATED AUTHOR AUTHOR'S ORGANIZ ATION 01/14/2024 [facility] DATE CREATED AUTHOR AUTHOR'S ORGANIZ ATION 01/21/2024 [facility] Care Teams (unrecognized sec tion and content) Team Status: Inactive Member Role Status Dates Yaakov Madison MD Attending Provider Active Start: December 11, 2023 End: December 11, 2023 Goals (unrecognized section and content) Goals may be documented in a n alternate section FOR RECORDS PERTAINING TO PATIENTS WHO ARE [...] BE BASED ON THE PRIMARY CLINICAL RECORDS. [employer] provides no warranty or guarantee of the accuracy or completeness of information in this document.
--- NOTE | 2024-01-23 07:30 | XR_ITS ---
The [address] [address] Patient Name: FRANKIE GRIGGS MRN: [id number] date: 1985 Sex: F Assigned Patient Location: [facility] Current Patient Location: [facility] Accession/Order Number: [id number] Exam Date: 01/23/2024 07:24 Report Date: 01/23/2024 08:17 At the request of: ORTIZ MOSES Procedure: XR chest 1V EXAMINATION: XR chest 1V HISTORY: pre-op COMPARISON: 10/03/2020 TECHNIQUE: Frontal FINDINGS: LUNGS: No significant pulmonary parenchymal abnormalities. VASCULATURE: No increased pulmonary vasculature. PLEURA: No pneumothorax, effusion, or pleural thickening. CARDIAC: No cardiomegaly or cardiac silhouette abnormality. MEDIASTINUM: No visible mass or adenopathy. BONES: No fracture or visible bone lesion. OTHER: Negative. XR/XR chest 1V IMPRESSION: No acute cardiopulmonary process Electronically authenticated by: JAMISON CAMARENA Date: 01/23/2024 08:17
[2024-01-23 07:34] LABS: Basophils Absolute Auto 0.1 10^3/uL (0.0-0.1); Basophils Percent Auto 1.2 % (0.2-2.0); Eosinophils Absolute Auto 0.2 10^3/uL (0.0-0.7); Eosinophils Percent Auto 2.3 % (0.9-7.0); Hematocrit 39.3 % (36.0-48.0); Hemoglobin 12.4 g/dL (12.0-16.0); Immature Granulocytes Abs Auto 0.01 10^3/uL (0.00-0.03); Immature Granulocytes Pct Auto 0.1 % (0.0-0.5); Lymphocytes Absolute Auto 2.6 10^3/uL (1.2-3.8); Lymphocytes Percent Auto 37.7 % (20.5-60.0); Mean Corpuscular HGB Conc 31.6 g/dL (29.9-35.2); Mean Corpuscular Hemoglobin 25.2 pg (26.7-34.0); Mean Corpuscular Volume 79.7 fL (81.0-99.0); Mean Platelet Volume 9.9 fL (9.5-13.5); Monocytes Absolute Auto 0.5 10^3/uL (0.3-0.8); Monocytes Percent Auto 6.8 % (1.7-12.0); Neutrophils Absolute Auto 3.6 10^3/uL (1.4-6.5); Neutrophils Percent Auto 51.9 % (43.0-75.0); Platelet Count 376 10^3/uL (150-450); Red Blood Count 4.93 10^6/uL (4.20-5.40); Red Cell Distribution Width 15.4 % (11.0-15.0); White Blood Count 6.9 10^3/uL (4.0-11.0)
[2024-01-23] MEDS: LACTATED RINGER'S SOLUTION 1,000 ML 50 ML IV ×2 (07:59→11:32)
[2024-01-23 08:05] LABS: HCG Quantitative <1 mIU/mL
--- NOTE | 2024-01-23 11:37 | P.ON_ITS ---
Brief Operative Note Date of procedure: 01/23/24 Pre-op diagnosis general: menorrhagia, desires permanent sterilization Post-op diagnosis: same as pre-op Procedure: NAME OF PROCEDURE: robotic assisted Laparoscopic bilateral salpingectomy, with Keisha endometrial ablation with hysteroscopy PROCEDURE: The patient was taken back to the OR where she was prepped and draped in the normal sterile fashion after being placed in the dorsal lithotomy position, after being placed under general anesthesia without difficulty. a weighted speculum was then placed into the vagina. Pap and endometrial bx were performed without difficultyThe anterior lip was grasped with a single tooth tenaculum. The patient was then sounded to approximatley 9cm. The patient was gently sounded using Hegar dilators and the hysteroscope was passed through the cervix into the uterus where both ostia were seen. No gross evidence of polyps, fibroids or malignancy. The cervical length was noted to be 4cm. The Keisha ablation apparatus was set to approximately 5cm in length. This was placed in through the cervix and into the uterus. After the seal was tested, at that time the total ablation of 120 seconds was performed with the Keisha without difficulty. All instruments were removed from the vagina. A wet sponge stick was placed into the patient's vagina. Attention was then turned to the patient's abdomen, where a scalpel was used to make a small infraumbilical incision. The S retractors were then used to dissect the underlying layers until the fascia could be seen. The fascia was then grasped with Yunier clamps and tented up. A knife was then used to make a small incision to the fascia. The muscle was identified, at that time two sutures of #0 Vicryl on a GI needlewas then used and placed through the fascia. The peritoneum was then identified and entered bluntly. The 10-4 Wendy was then placed into the patient's abdomen. This was confirmed with direct visualization of the bowel, using the laparoscope. The patient's abdomen was then insufflated using approximately 4 liters of CO2 gas. Survey of the patient's abdomen demonstrated normal appearing ovaries, uterus and tubes. A second and third lateral robotic ports, which was 8mm in size, was then placed laterally after incision was made in the skin under direct visualization. the robotic arms were engaged. The patient's tube on the patient's right side was identified. The tube was then tented up using a grasper. The ligasure was used to transect and coagulate the mesosalpingx from the fimbriated end to the insertion at the uterus, the tube was amputated and removed in its entirety.? Excellent hemostasis was noted. ?This was performed on the contralateral sideas well. The lateral ports were then moved under direct visualization with excellent hemostasis. The abdomen was deinsufflated. All instruments were removed from the patient's abdomen. The fascia was closed using the #0 Vicryl on GI needle. The skin was closed using 4- 0 Vicryl subcuticularly. All instruments were removed from the patient's vagina as well. The patient was taken out of the dorsal lithotomy position and placed in the supine position and taken to recovery in stable condition. Sponge, lap and needle counts were correct x2. ??? Anesthesia: PRAMOD Surgeon: Leo Oro Ship'S Carpenter: Deanna Christianson Estimated blood loss (mL): 5 Pathology: other (bilateral tubes) Condition: stable Disposition: PACU Urinary Catheter Management Urinary Catheter Management Urethral: Cath placed during this visit: no
--- NOTE | 2024-01-23 12:42 | PC.NURSE ---
Peripad dry. Emesis of approximately 100cc bile and states she feels much better after emesis and takes sips of H2O. Dressings x4 intact to abdomen with right dressing dry, upper mid dressing with scant bloody drainage, lower mid dressing with small amount bloody drainage and left dressing with pencil tip amount drainage
[2024-01-23] MEDS: HALOPERIDOL LACTATE 5 MG/ML VIAL IV (13:01)
--- NOTE | 2024-01-23 13:09 | PC.NURSE ---
patient has some mild nausea administered Haldol as order by dr Strong
--- NOTE | 2024-01-23 14:07 | PC.NURSE ---
1320 patient urinated unmeasured amount of yellow urine.
== END 2024-01-23 13:28 | disposition home or self-care (01) ==
PROVIDERS: PCP Student in an Organized Health Care Education/Training Program; Visit Provider Obstetrics & Gynecology
PROC: (CPT 840; principal; 2024-01-23 08:30)
PROC: (CPT 840; 2024-01-23 08:30)
DX: N92.0 Excessive and frequent menstruation with regular cycle (principal); Z30.2 Encounter for sterilization; N84.0 Polyp of corpus uteri; N83.8 Other noninflammatory disorders of ovary, fallopian tube and broad ligament; Z90.49 Acquired absence of other specified parts of digestive tract; I10 Essential (primary) hypertension; E66.01 Morbid (severe) obesity due to excess calories; E03.9 Hypothyroidism, unspecified; F41.9 Anxiety disorder, unspecified; Z68.42 Body mass index [BMI] 45.0-49.9, adult
CPT/HCPCS: 58563; 58661; 36415; 71045; 84702; 85025; 88302; 88305; J1100; J1170; J1630; J2250; J2405; J3010